=== PATIENT | male | born 1950 | race Caucasian/White ===

== ENCOUNTER 2021-03-24 16:55 | Inpatient (IN) | payer MEDICARE, MEDICAID, SELFPAY ==
--- NOTE | ~2021-03-24 | CT_ITS ---
EXAMINATION: CT ABDOMEN AND PELVIS WITHOUT CONTRAST CLINICAL INFORMATION: Acute renal failure, rule out obstruction COMPARISON: None TECHNIQUE: Multidetector volumetric imaging was performed from the superior aspect of the liver through the pubic symphysis. Sagittal and coronal reformatted images were obtained on the technologist's workstation. This CT examination was performed using dose optimization techniques as appropriate, variously including the following: *Automated exposure control *Adjustment of mA and/or kV according to patient size (this includes techniques or standardized protocols for targeted exams where dose is matched to indication/reason for exam; i.e. extremities or head) *Use of iterative reconstruction technique DLP: 612 mGy-cm FINDINGS: LUNG BASES: The visualized lung bases are unremarkable. ABDOMINAL AND PELVIC WALL: Small fat-containing umbilical hernia. LIVER AND BILIARY TREE: Unremarkable GALLBLADDER: Unremarkable PANCREAS: Unremarkable SPLEEN: Unremarkable ADRENAL GLANDS: A 1.9 cm Right adrenal lesion and a 2.0 cm left adrenal lesion, with intrinsically low density (less than 10 Hounsfield units on noncontrast phase) compatible with adrenal adenomas. KIDNEYS AND URETERS: Moderate bilateral hydroureteronephrosis with the ureters dilated to the level of the ureterovesicular junctions. There is a 4 mm stone in the distal right ureter however this does not appear to be obstructing as the ureter is dilated to a significantly larger diameter than the stone, measuring 1.4 cm. UPPER GASTROINTESTINAL TRACT: The stomach and duodenum are unremarkable. VASCULAR: Unremarkable. LYMPH NODES: No lymphadenopathy. BLADDER: Urinary bladder is significantly distended. PELVIC VISCERA: Prostate is enlarged measuring 6.2 cm in diameter. TURP defect is noted within the prostate. Grijalva catheter balloon is inflated within the prostatic urethra. LOWER GASTROINTESTINAL TRACT: Colonic diverticulosis without evidence of diverticulitis. Normal appendix. OSSEOUS STRUCTURES: Unremarkable CT/CT abdomen pelvis wo con IMPRESSION: Moderate bilateral hydroureteronephrosis with the ureters dilated to the level of the ureterovesicular junctions. There is a 4 mm stone in the distal right ureter however this does not appear to be obstructing as the ureter is dilated to a significantly larger diameter than the stone, measuring 1.4 cm. Urinary bladder is significantly distended. The Grijalva catheter balloon is inflated within the prostatic urethra. Recommend repositioning. Bilateral adrenal adenomas measuring 1.9 cm on the right and 2.0 cm on the left, no imaging follow-up recommended.
--- NOTE | ~2021-03-24 | IR_ITS ---
PROCEDURE: IR INSERTION OF TUNNEL CATHETER CLINICAL INFORMATION: Renal failure COMPARISON: None TECHNIQUE: Procedure risks and benefits including bleeding, infection and pneumothorax were discussed with the patient and informed consent was obtained. All elements of maximal sterile barrier technique followed including use of cap, mask, sterile gown, sterile gloves, a sterile full body drape and hand hygiene. Also followed skin preparation with 2% chlorhexidine for cutaneous antisepsis, and sterile ultrasound preparation with sterile gel and probe cover when applicable. The right neck and upper chest were prepped and draped in the usual sterile fashion. The skin and soft tissues of the right lower neck were anesthetized with 1% lidocaine with epinephrine. A small incision was made. Using a 5 Lithuanian micropuncture system and ultrasound guidance, right internal jugular vein access was obtained. Over an 018 wire, a 5 Lithuanian dilator was positioned in the SVC. The skin and soft tissues of the right upper anterior chest were anesthetized with 1% lidocaine with epinephrine. A small incision was made. A subcutaneous tunnel from the chest to the neck incision was anesthetized with 1% lidocaine with epinephrine. Using a tunneler, a 14.5 Lithuanian 23 cm in length permacath was tunneled from the chest to the neck incision. An 035 guidewire was advanced through the 5 Lithuanian dilator into the IVC. Following serial dilatation and through a peel-away sheath, permacath was advanced centrally. The neck incision was closed using a 4 0 absorbable subcuticular suture. Chest incision was closed using a 4 0 absorbable mattress suture. Both ports had good blood return, flushed easily and were instilled with 1.9 mL heparin 1000 unit per mL solution. Patient received Versed 2 mg, fentanyl 100 mcg and Kefzol 2 g IV during the procedure. Total sedation time was 20 minutes. Real-time ultrasound guidance was used to document vein patency and for needle entry. DAP 35 cgy per centimeter squared. 1 saved fluoroscopic image. FINDINGS: There is a right internal jugular permacath with tip projecting over the cavoatrial junction. IR/IR cvc insert central tunnel IMPRESSION: Right internal jugular 14.5 Lithuanian 23 cm in length palindrome permacath placement.
--- NOTE | ~2021-03-24 | XR_ITS ---
EXAMINATION: XR chest 2V CLINICAL INFORMATION: Reason for Exam SOB COMPARISON: None TECHNIQUE: 2 views of the chest XR/XR chest 2V FINDINGS/IMPRESSION: Clear lungs. No pneumothorax. No pleural effusion. Normal cardiomediastinal silhouette.
--- NOTE | ~2021-03-24 | XR_ITS ---
EXAMINATION: XR CHEST CLINICAL INFORMATION: Postop. COMPARISON: Chest 03/24/2021 TECHNIQUE: Frontal view of the chest was obtained. FINDINGS: No significant abnormality is noted involving the heart, lungs, mediastinum, bony thorax or soft tissues. XR/XR chest 1V IMPRESSION: Unremarkable chest exam. No change from 03/24/2021.
[2021-03-24 17:08] VITALS: BP 130/77; PULSE 130; RESP 21; TEMP 36.5; O2SAT 99; BMI 20.9
--- NOTE | 2021-03-24 17:14 | ECG_ITS ---
Test Reason : CHEST PAIN Blood Pressure : / mmHG Vent. Rate : 120 BPM Atrial Rate : 120 BPM P-R Int : 160 ms QRS Dur : 088 ms QT Int : 314 ms P-R-T Axes : 081 050 094 degrees QTc Int : 443 ms Sinus tachycardia Left ventricular hypertrophy with repolarization abnormality ( Sokolow-Leon ) Abnormal ECG No previous ECGs available Referred By: Generic ED Physician Electronically Signed By:JAVIER DARDEN MD
[2021-03-24 17:43] LABS: MANUAL DIFF FLAG NO
[2021-03-24 17:44] LABS: Basophils Percent Auto 0.2 % (0-2); Eosinophils Absolute Auto 0.2 X10*3/uL (0.0-0.4); Eosinophils Percent Auto 1.6 % (0-4); Hematocrit 23.6 % (42.0-52.0); Imm Gran Abs Auto 0.04 X10*3/uL (0.00-0.03); Imm Gran Pct Auto 0.4 % (0.0-0.4); Lymphocytes Absolute Auto 1.2 X10*3/uL (1.2-4.9); Lymphocytes Percent Auto 12.7 % (20-40); Mean Corpuscular HGB Conc 33.9 g/dl (31.0-36.0); Mean Corpuscular Hemoglobin 30.1 pg (27.0-33.0); Mean Corpuscular Volume 88.7 fL (80.0-98.0); Mean Platelet Volume 10.5 fL (9.4-12.4); Monocytes Absolute Auto 0.6 X10*3/uL (0.1-1.2); Monocytes Percent Auto 5.8 % (2-11); Neutrophils Absolute Auto 7.6 x10*3/uL (2.0-8.3); Neutrophils Percent Auto 79.3 % (45-73); Platelet Count 232 X10*3/uL (160-400); Red Blood Count 2.66 X10*6/uL (4.60-5.80); White Blood Count 9.6 X10*3/uL (4.8-10.8)
[2021-03-24 18:03] LABS: COVID-19 Test Negative (Negative)
[2021-03-24 18:11] LABS: B Type Natriuretic Peptide 47 pg/mL (<100)
[2021-03-24 18:11] LABS: Troponin-I High Sensitivity 25.2 ng/L (<3.5-35.0)
[2021-03-24 18:27] LABS: Anion Gap 31 (12-20); Blood Urea Nitrogen 197 mg/dL (9-16); Calcium 7.8 mg/dL (8.4-10.2); Carbon Dioxide 8 mmol/L (22-29); Chloride 99 mmol/L (96-108); Creatinine Clr Calc Pharmacy 3.6; Estimated Glomerular Filt Rate 3; Glucose Random 139 mg/dL (60-115); Potassium 5.2 mmol/L (3.3-5.1); Sodium 133 mmol/L (135-145)
[2021-03-24 18:31] VITALS: BP 129/73; PULSE 115; RESP 16; TEMP 36.9; O2SAT 97
--- NOTE | 2021-03-24 19:09 | ED_ITS ---
HPI - General Adult General Chief complaint: General Medical Stated complaint: Sob ,chest pain Time Seen by Provider: 03/24/21 19:07 Source: patient Mode of arrival: ambulatory Limitations: no limitations History of Present Illness HPI narrative: 70-year-old male came into the emergency department for evaluation of nausea, vomiting, diarrhea and losing 60 lb over past 6 months, patient has no PCP to follow up with. Nausea, vomiting started 1st around September time patient was not able to keep any food or drink down. Patient was too weak he lost significant amount of weight. started to have uncontrollable diarrhea that the patient wear diaper at nighttime, patient claimed that he is still making urine he sees his diaper wet, patient declined any alcohol abuse history, mild exertional chest pain,no chest pain, no leg swelling, no fever, no chills, no recent travel, no recent use of antibiotics, no abdominal pain, no bloody diarrhea, no sick contact. Related Data Home Medications Medication Instructions Recorded Confirmed No Known Home Meds 03/24/21 03/24/21 Allergies Allergy/AdvReac Type Severity Reaction Status Date / Time No Known Allergies Allergy Verified 03/24/21 17:13 Review of Systems Review of Systems: All other systems are reviewed and are negative Constitutional: Reports as per HPI and Reports no additional constitutional complaints Eyes: Reports as per HPI and Reports no additional eye complaints Reports system reviewed and no additional complaints, except as documented Cardiovascular: Reports as per HPI and Reports no additional cardiovascular complaints Respiratory: Reports as per HPI and Reports no additional respiratory complaints Gastrointestinal: Reports as per HPI and Reports no additional gastrointestinal complaints Genitourinary: Reports no additional female genitourinary complaints Musculoskeletal: Reports no additional musculoskeletal complaints Skin/Breast: Reports system reviewed and no additional complaints, except as docu Psychiatric: Reports no additional psychiatric complaints Endocrine: Reports no additional endocrine complaints Hematologic/Lymphatic: Reports no additional hematologic/lymphatic complaints Allergic/Immunologic: Reports no additional allergic/immunologic complaints Reports system reviewed and no additional complaints, except as documented and Reports Abnormal speech [facility] Social History Social History Alcohol intake: former Patient Tobacco Use Status: Never used Tobacco Use of substances other than those prescribed or required for medical reasons: No Advance Directives: No Advance Directives Information Provided: No Physical Exam Vital Signs: Vital Signs: Last Vital Signs Temp 98.5 F 03/24/21 18:31 Pulse 107 H 03/24/21 19:14 Resp 18 03/24/21 19:14 BP 177/90 H 03/24/21 19:14 Pulse Ox 98 03/24/21 19:14 BMI result Body Mass Index 20.9 vital signs have been reviewed as appeared to be correct. Blood pressure normal. Heart rate Elevated. Respiration rate normal. Temperature normal. Oxygen saturation normal. Appearance: Alert. Oriented X3. No acute distress. Head: Normal external exam. Normocephalic. Atraumatic. No Dyer signs noted. No raccoon eyes noted Eyes: PERRLA. EOMI. Conjunctiva and sclera normal. Eyelids normal. ENT: TM's Normal. Pharynx normal. Uvula midline. Moist mucous membranes. No trismus noted. No drooling noted. No muffled voice noted. Neck: Normal inspection. Neck supple. FROM. No adenopathy. Thyroid Normal. No meningeal signs. No neck mass noted. CVS: Normal heart rate and rhythm. Heart sound normal. No murmurs noted. Pulses normal throughout. Respiratory: No respiratory distress. Painless inspiration. Breath sounds normal. No wheezes/rales/rhonchi noted. Chest nontender. No accessory muscle usage noted or decreased air movement noted. Abdomen: Soft and nontender. Bowel sounds normal in all 4 quadrants. No distention noted. No organomegaly noted. No visible injury noted. Back: No CVA tenderness. Full range of motion noted. Skin: Skin warm and dry. Normal skin color. Normal skin turgor. No rashes/lesions/lacerations noted. Extremities: No lower extremity edema. Extremities exhibit normal range of motion. Extremities nontender. Neuro: Oriented X 3. Cranial nerve exam: II-XII are grossly intact No motor deficit. No sensory deficit. Reflexes normal. Course Course Course Narrative: Assessment and plan. Acute renal failure secondary to post renal obstruction, case discussed with Dr. ruben Salamanca. from [facility]phrology [facility], and Dr. Javier Edgar from Neurology Service, recommended to give the patient 3 mm of bicarb in D5 temp new x 1, decompress the bladder with Grijalva catheter (initially catheter was not in place was replaced now it is draining over 1000 of clear urine. ) Medical Decision Making Lab Data Lab results reviewed: Yes I reviewed the patient's lab results. Result diagrams: 03/24/21 17:31 03/24/21 17:31 Labs: Lab Results 03/24/21 03/24/21 03/24/21 Range/Units 17:31 17:31 17:31 WBC 9.6 (4.8-10.8) X10*3/uL RBC 2.66 L (4.60-5.80) X10*6/uL Hgb 8.0 L (14.0-18.0) g/dl Hct 23.6 L (42.0-52.0) % MCV 88.7 (80.0-98.0) fL MCH 30.1 (27.0-33.0) pg MCHC 33.9 (31.0-36.0) g/dl RDW 12.0 (11.0-16.0) % Plt Count 232 (160-400) X10*3/uL MPV 10.5 (9.4-12.4) fL Immature Gran % (Auto) 0.4 (0.0-0.4) % Neut % (Auto) 79.3 H (45-73) % Lymph % (Auto) 12.7 L (20-40) % Hawkins % (Auto) 5.8 (2-11) % Eos % (Auto) 1.6 (0-4) % Baso % (Auto) 0.2 (0-2) % Lymph # (Auto) 1.2 (1.2-4.9) X10*3/uL Hawkins # (Auto) 0.6 (0.1-1.2) X10*3/uL Eos # (Auto) 0.2 (0.0-0.4) X10*3/uL Baso # (Auto) 0.0 (0.0-0.2) X10*3/uL Abs Immat Gran (auto) 0.04 H (0.00-0.03) X10*3/uL Absolute Neuts (auto) 7.6 (2.0-8.3) x10*3/uL Absolute Nucleated RBC 0.000 (0.0-0.012) X10*3/uL Nucleated RBC % (auto) 0.0 (0.0-0.2) /100WBC Sodium 133 L (135-145) mmol/L Potassium 5.2 H (3.3-5.1) mmol/L Chloride 99 (96-108) mmol/L Carbon Dioxide 8 L* (22-29) mmol/L Anion Gap 31 H (12-20) BUN 197 H (9-16) mg/dL Creatinine 17.66 H* (0.5-1.4) mg/dL Estim Creat Clear Calc 3.6 Estimated GFR 3 Random Glucose 139 H (60-115) mg/dL Calcium 7.8 L (8.4-10.2) mg/dL Troponin I High Sens (<3.5-35.0) ng/L B-Natriuretic Peptide 47 (<100) pg/mL Urine Color Urine Appearance Urine pH (5.0-8.0) Ur Specific [place] (1.005-1.025) Urine Protein (NEG-TRACE) MG/DL Urine Glucose (UA) (NEG) MG/DL Urine Ketones (NEG) MG/DL Urine Blood (NEG) Urine Nitrite (NEG) Ur Leukocyte Esterase (NEG) Urine RBC (0) /HPF Urine WBC (0-4) /HPF Ur Squamous Epith Cells /LPF Urine Bacteria /LPF Stool Occult Blood (NEGATIVE) COVID-19 (ECHO) (Negative) COVID-19 Clin Com 03/24/21 03/24/21 03/24/21 Range/Units 17:32 17:32 19:36 WBC (4.8-10.8) X10*3/uL RBC (4.60-5.80) X10*6/uL Hgb (14.0-18.0) g/dl Hct (42.0-52.0) % MCV (80.0-98.0) fL MCH (27.0-33.0) pg MCHC (31.0-36.0) g/dl RDW (11.0-16.0) % Plt Count (160-400) X10*3/uL MPV (9.4-12.4) fL Immature Gran % (Auto) (0.0-0.4) % Neut % (Auto) (45-73) % Lymph % (Auto) (20-40) % [place] % (Auto) (2-11) % Eos % (Auto) (0-4) % Baso % (Auto) (0-2) % Lymph # (Auto) (1.2-4.9) X10*3/uL [place] # (Auto) (0.1-1.2) X10*3/uL Eos # (Auto) (0.0-0.4) X10*3/uL Baso # (Auto) (0.0-0.2) X10*3/uL Abs Immat Gran (auto) (0.00-0.03) X10*3/uL Absolute Neuts (auto) (2.0-8.3) x10*3/uL Absolute Nucleated RBC (0.0-0.012) X10*3/uL Nucleated RBC % (auto) (0.0-0.2) /100WBC Sodium (135-145) mmol/L Potassium (3.3-5.1) mmol/L Chloride (96-108) mmol/L Carbon Dioxide (22-29) mmol/L Anion Gap (12-20) BUN (9-16) mg/dL Creatinine (0.5-1.4) mg/dL Estim Creat Clear Calc Estimated GFR Random Glucose (60-115) mg/dL Calcium (8.4-10.2) mg/dL Troponin I High Sens 25.2 (<3.5-35.0) ng/L B-Natriuretic Peptide (<100) pg/mL Urine Color Urine Appearance Urine pH (5.0-8.0) Ur Specific [place] (1.005-1.025) Urine Protein (NEG-TRACE) MG/DL Urine Glucose (UA) (NEG) MG/DL Urine Ketones (NEG) MG/DL Urine Blood (NEG) Urine Nitrite (NEG) Ur Leukocyte Esterase (NEG) Urine RBC (0) /HPF Urine WBC (0-4) /HPF Ur Squamous Epith Cells /LPF Urine Bacteria /LPF Stool Occult Blood NEGATIVE (NEGATIVE) COVID-19 (ECHO) Negative (Negative) COVID-19 Clin Com See Note 03/24/21 Range/Units 19:36 WBC (4.8-10.8) X10*3/uL RBC (4.60-5.80) X10*6/uL Hgb (14.0-18.0) g/dl Hct (42.0-52.0) % MCV (80.0-98.0) fL MCH (27.0-33.0) pg MCHC (31.0-36.0) g/dl RDW (11.0-16.0) % Plt Count (160-400) X10*3/uL MPV (9.4-12.4) fL Immature Gran % (Auto) (0.0-0.4) % Neut % (Auto) (45-73) % Lymph % (Auto) (20-40) % Hawkins % (Auto) (2-11) % Eos % (Auto) (0-4) % Baso % (Auto) (0-2) % Lymph # (Auto) (1.2-4.9) X10*3/uL Hawkins # (Auto) (0.1-1.2) X10*3/uL Eos # (Auto) (0.0-0.4) X10*3/uL Baso # (Auto) (0.0-0.2) X10*3/uL Abs Immat Gran (auto) (0.00-0.03) X10*3/uL Absolute Neuts (auto) (2.0-8.3) x10*3/uL Absolute Nucleated RBC (0.0-0.012) X10*3/uL Nucleated RBC % (auto) (0.0-0.2) /100WBC Sodium (135-145) mmol/L Potassium (3.3-5.1) mmol/L Chloride (96-108) mmol/L Carbon Dioxide (22-29) mmol/L Anion Gap (12-20) BUN (9-16) mg/dL Creatinine (0.5-1.4) mg/dL Estim Creat Clear Calc Estimated GFR Random Glucose (60-115) mg/dL Calcium (8.4-10.2) mg/dL Troponin I High Sens (<3.5-35.0) ng/L B-Natriuretic Peptide (<100) pg/mL Urine Color RED Urine Appearance HAZY Urine pH 6.0 (5.0-8.0) Ur Specific [place] 1.015 (1.005-1.025) Urine Protein 2+ H (NEG-TRACE) MG/DL Urine Glucose (UA) NEG (NEG) MG/DL Urine Ketones NEG (NEG) MG/DL Urine Blood 3+ H (NEG) Urine Nitrite NEG (NEG) Ur Leukocyte Esterase 3+ H (NEG) Urine RBC TNTC H (0) /HPF Urine WBC 30-49 H (0-4) /HPF Ur Squamous Epith Cells NONE /LPF Urine Bacteria 2+ /LPF Stool Occult Blood (NEGATIVE) COVID-19 (ECHO) (Negative) COVID-19 Clin Com Imaging Data CT scan - abdomen: Attestation: I personally reviewed and interpreted this imaging study as follows: Radiologist's impression: Moderate bilateral hydroureteronephrosis with the ureters dilated to the level of the ureterovesicular junctions. There is a 4 mm stone in the distal right ureter however this does not appear to be obstructing as the ureter is dilated to a significantly larger diameter than the stone, measuring 1.4 cm. ? Urinary bladder is significantly distended. The Grijalva catheter balloon is inflated within the prostatic urethra. Recommend repositioning. ? Bilateral adrenal adenomas measuring 1.9 cm on the right and 2.0 cm on the left, no imaging follow-up recommended. ? Chest x-ray: Attestation: I personally reviewed and interpreted this imaging study as follows: Radiologist's impression: No pneumothorax, no pleural effusion, normal cardio mediastinum silhouette ECG Data Attestation: I personally reviewed and interpreted this ECG as follows: Interpretation: sinus tachycardia at 120 beats per minutes with LVH, normal axis deviation, normal intervals. Discharge Plan Discharge Clinical Impression: Acute renal failure, Calculi, ureter Patient Disposition: Admitted as Observation Prescriptions: No Action No Known Home Meds RF: 0
[2021-03-24 19:14] VITALS: BP 177/90; PULSE 107; RESP 18; O2SAT 98
[2021-03-24] MEDS: 0.9 % Sodium Chloride 1,000 ML 999 ML IVCONT (19:14)
[2021-03-24 19:42] LABS: Appearance Urine HAZY; Color Urine RED; Glucose Urine UA NEG (NEG); Leukocyte Esterase Urine 3+ (NEG); Nitrite Urine NEG (NEG); OBS Int Ctl Valid YES; OBS1 NEGATIVE (NEGATIVE); Specific Gravity - Urine 1.015 (1.005-1.025); UACC Culture Trigger YES; Urine Blood 3+ (NEG); Urine Ketones NEG (NEG); Urine Protein 2+ MG/DL (NEG-TRACE)
[2021-03-24 19:50] LABS: RBC Urine TNTC /HPF (0); WBC Urine 30-49 /HPF (0-4)
[2021-03-24 19:51] LABS: Bacteria Urine 2+ /LPF
[2021-03-24 22:00] VITALS: BP 148/94; PULSE 89; RESP 16; O2SAT 98
--- NOTE | 2021-03-24 22:39 | PC.NURSE ---
ATTEMPT TO ADVANCE LUTZ PER CT SCAN. PATIENT OUTPUT FROM LUTZ WAS 400MLS OF LIGHT NAV URINE. PATIENT NOT TOLERATING EVEN CLEAING OF THE AREA WELL. VERY JUMPY. UNABLE TO HOLD STILL, CLENCHING, BEARING DOWN. THIS RN ATTEMPTING REINSERTION, NASIM RN ATTEMPTING COUDE WITH NO SUCCESS, TARAH RN ATTEMPTING A 12FR LUTZ, ABLE TO ADVANCE IT AND URINE FLOWING AT THIS TIME. PROVIDER AWARE.
[2021-03-24] MEDS: Sodium Bicarbonate 8.4% 150 MEQ in Dextrose 5 % 850 ML 80 MEQ IV (22:51)
--- NOTE | 2021-03-24 23:10 | PM.IMHP ---
History of Present Illness Date of Service: 03/24/21 Chief Complaint: Weakness, n/v, This is a 71-year-old male who reports no past significant medical history as he has not seen a physician in many years because im a healthy man presents to the hospital with complaints nausea vomiting since August as well as progressive and significant weight loss, loss of appetite, and recently diarrhea. Patient reports that he started having 5/7 days nausea and vomiting starting in August that progressed to loss of appetite, he tried to stay hydrated by drinking Ensure but he was in even tolerating bad, he was throwing up everything he drank and or 8. He noticed that he started losing weight, until finally he realize he had lost 60 lb since August. He has had loss of bladder control for over a year now, but has not noticed any him itchy urea, no urinary urgency, dysuria, or frequency given his incontinence. He denies any abdominal pain, and he reports recent diarrhea with no black Meghan stools. He has no hemoptysis, hematemesis but has been experiencing epistaxis recently everytime he blows his nose. He has noticed decreased urine output in his diapers for the past few weeks. He otherwise denies having any headache, change in vision, no chest pain, no lower extremity edema. No numbness tingling or weakness. Arrival his vitals were significant for temp of 97.7?, heart rate of 130, respiratory rate of 21, satting 99% on room air Labs are significant for WBC count 9.6, hemoglobin of 8.0 with no previous for comparison, sodium of 133, potassium 5.2, bicarb of 8, BUN 197, creatinine of 17.66, calcium 7.8, UA that is positive for leukocyte Estrace, WBC, and RBC, Abdominal CT shows moderate bilateral hydroureteronephrosis with uterus dilated at the level of the ureterovascular junctions. There is a 4 mm stone in the distal right ureter however this does not appear to be obstructing as the uterus dilated to a significantly larger dimer that this stone measuring 1.4 cm. Urinary bladder is significantly distended. Bilateral adrenal adenomas measuring 1.9 cm on the right and 2.0 cm on the left. When inserting the Grijalva catheter in the ED there was difficulty advancing it due to resistance, most likely due to enlarged prostate. Nephrology as well as Urology were consulted, patient started on bicarb drip and will be admitted for further management. Review of Systems Review of Systems: Yes all other systems are reviewed and are negative [facility] Medical History No pertinent past medical history Family History (Updated 03/25/21 @ 06:28 by Antonio Chew MD) Other No pertinent family history in first degree relatives Surgical History H/O hernia repair Social History Alcohol intake: former Patient Tobacco Use Status: Never used Tobacco Use of substances other than those prescribed or required for medical reasons: No Advance Directives: No Advance Directives Information Provided: No Meds Allergies Allergy/AdvReac Type Severity Reaction Status Date / Time No Known Allergies Allergy Verified 03/24/21 17:13 Active Medications: Current Medications Sodium Bicarbonate 150 meq/ (Dextrose) 1,000 mls @ 80 mls/hr IV .[id number] DAWN Stop: 03/25/21 10:29 Last Admin: 03/24/21 22:51 Dose: 80 mls/hr Documented by: Home Medications Medication Instructions Recorded Confirmed Last Taken Type No Known Home Meds 03/24/21 03/24/21 Unknown History Physical Exam Vital Signs and Narrative: Vital Signs: Last Vital Signs Temp 98.5 F 03/24/21 18:31 Pulse 107 H 03/24/21 19:14 Resp 18 03/24/21 19:14 BP 177/90 H 03/24/21 19:14 Pulse Ox 98 03/24/21 19:14 BMI result Body Mass Index 20.9 Results Labs CBC and Chem 7: 03/24/21 17:31 03/24/21 17:31 Labs: Laboratory Results - last 24 hr 03/24/21 03/24/21 03/24/21 17:31 17:31 17:31 MCV 88.7 MCH 30.1 MCHC 33.9 RDW 12.0 Plt Count 232 MPV 10.5 Immature Gran % (Auto) 0.4 Neut % (Auto) 79.3 H Lymph % (Auto) 12.7 L [place] % (Auto) 5.8 Eos % (Auto) 1.6 Baso % (Auto) 0.2 Lymph # (Auto) 1.2 [place] # (Auto) 0.6 Eos # (Auto) 0.2 Baso # (Auto) 0.0 Abs Immat Gran (auto) 0.04 H Absolute Neuts (auto) 7.6 Absolute Nucleated RBC 0.000 Nucleated RBC % (auto) 0.0 Anion Gap 31 H Estim Creat Clear Calc 3.6 Estimated GFR 3 Random Glucose 139 H Calcium 7.8 L Troponin I High Sens B-Natriuretic Peptide 47 Urine Color Urine Appearance Urine pH Ur Specific [place] Urine Protein Urine Glucose (UA) Urine Ketones Urine Blood Urine Nitrite Ur Leukocyte Esterase Urine RBC Urine WBC Ur Squamous Epith Cells Urine Bacteria Stool Occult Blood COVID-19 (ECHO) COVID-19 Clin Com 03/24/21 03/24/21 03/24/21 17:32 17:32 19:36 MCV MCH MCHC RDW Plt Count MPV Immature Gran % (Auto) Neut % (Auto) Lymph % (Auto) [place] % (Auto) Eos % (Auto) Baso % (Auto) Lymph # (Auto) [place] # (Auto) Eos # (Auto) Baso # (Auto) Abs Immat Gran (auto) Absolute Neuts (auto) Absolute Nucleated RBC Nucleated RBC % (auto) Anion Gap Estim Creat Clear Calc Estimated GFR Random Glucose Calcium Troponin I High Sens 25.2 B-Natriuretic Peptide Urine Color Urine Appearance Urine pH Ur Specific [place] Urine Protein Urine Glucose (UA) Urine Ketones Urine Blood Urine Nitrite Ur Leukocyte Esterase Urine RBC Urine WBC Ur Squamous Epith Cells Urine Bacteria Stool Occult Blood NEGATIVE COVID-19 (ECHO) Negative COVID-19 Clin Com See Note 03/24/21 19:36 MCV MCH MCHC RDW Plt Count MPV Immature Gran % (Auto) Neut % (Auto) Lymph % (Auto) [place] % (Auto) Eos % (Auto) Baso % (Auto) Lymph # (Auto) [place] # (Auto) Eos # (Auto) Baso # (Auto) Abs Immat Gran (auto) Absolute Neuts (auto) Absolute Nucleated RBC Nucleated RBC % (auto) Anion Gap Estim Creat Clear Calc Estimated GFR Random Glucose Calcium Troponin I High Sens B-Natriuretic Peptide Urine Color RED Urine Appearance HAZY Urine pH 6.0 Ur Specific [place] 1.015 Urine Protein 2+ H Urine Glucose (UA) NEG Urine Ketones NEG Urine Blood 3+ H Urine Nitrite NEG Ur Leukocyte Esterase 3+ H Urine RBC TNTC H Urine WBC 30-49 H Ur Squamous Epith Cells NONE Urine Bacteria 2+ Stool Occult Blood COVID-19 (ECHO) COVID-19 Clin Com Imaging Radiologist's Impressions: Impressions Chest X-Ray 03/24/21 17:49 FINDINGS/IMPRESSION: Clear lungs. No pneumothorax. No pleural effusion. Normal cardiomediastinal silhouette. Abdomen/Pelvis CT 03/24/21 20:27 IMPRESSION: Moderate bilateral hydroureteronephrosis with the ureters dilated to the level of the ureterovesicular junctions. There is a 4 mm stone in the distal right ureter however this does not appear to be obstructing as the ureter is dilated to a significantly larger diameter than the stone, measuring 1.4 cm. Urinary bladder is significantly distended. The Grijalva catheter balloon is inflated within the prostatic urethra. Recommend repositioning. Bilateral adrenal adenomas measuring 1.9 cm on the right and 2.0 cm on the left, no imaging follow-up recommended. Assessment and Plan (1) Acute renal failure: Status: Acute (2) Metabolic acidosis: Status: Acute (3) UTI (urinary tract infection): Status: Acute (4) Weight loss: Status: Acute (5) Intractable nausea and vomiting: Status: Acute 70 yo M who reports no past medical history presents to the hospital with intractable nausea vomiting, weight loss, found to have severe kidney failure # DAVID - most likely postobstructive secondary to either enlarged prostate or or mass although no bladder mass seen on CT abdomen pelvis - urology as well as Nephrology were consulted, - patient started on IV fluids - plan for urology elevation in a.m. - Nephrology does not feel the patient currently needs any stat dialysis at this is most likely postobstructive - follow BMP # metabolic acidosis - most likely driven by uremia - BUN is 197 with a bicarb of 8 - patient started on bicarb drip per Nephrology recommendation - will follow BMP # weight loss - most likely secondary to poor p.o. intake as well as nausea vomiting - will start him with regular diet as well as ensure supplement # intractable nausea vomiting - most likely secondary to uremia as well as DAVID - will start him on Zofran p.r.n. - supportive measures, IV fluid DVT prophylaxis: Heparin subQ Quality Stroke Does the patient have a stroke diagnosis?: No VTE Prior VTE?: No VTE Risk Level:: Medical - moderate - high VTE Device Contraindication: Treatment Not Indicated VTE Drug Contraindication: N/A - Med Ordered
[2021-03-24] MEDS: Tamsulosin HCL 0.4 MG CAPSULE PO (23:29)
[2021-03-24] MEDS: LORazepam 2 MG/ML VIAL 1 MG IVPUSH (23:29)
[2021-03-24 23:50] VITALS: BP 122/82; PULSE 70; RESP 16; TEMP 36.7; O2SAT 95
[2021-03-25] VITALS (32 sets, daily range): BP systolic 81–146; BP diastolic 48–85; PULSE 81–116; RESP 12–28; TEMP 36.3–36.6; O2SAT 96–100; BMI 26.6
[2021-03-25] MEDS: Enoxaparin Sodium 40 MG/0.4 ML SYRINGE SUBCUT (02:34)
[2021-03-25] MEDS: cefTRIAXone sodium 1 GM in 0.9 % Sodium Chloride 50 ML IV (02:34)
[2021-03-25] MEDS: Morphine Sulfate 4 MG/ML CARTRIDGE IVPUSH ×2 (05:21→10:04)
[2021-03-25 06:58] LABS: MANUAL DIFF FLAG NO
[2021-03-25 07:07] LABS: Basophils Percent Auto 0.2 % (0-2); Eosinophils Absolute Auto 0.1 X10*3/uL (0.0-0.4); Eosinophils Percent Auto 0.4 % (0-4); Hematocrit 22.8 % (42.0-52.0); Hemoglobin 7.8 g/dl (14.0-18.0); Imm Gran Abs Auto 0.05 X10*3/uL (0.00-0.03); Imm Gran Pct Auto 0.4 % (0.0-0.4); Lymphocytes Absolute Auto 1.1 X10*3/uL (1.2-4.9); Lymphocytes Percent Auto 9.4 % (20-40); Mean Corpuscular HGB Conc 34.2 g/dl (31.0-36.0); Mean Corpuscular Hemoglobin 30.7 pg (27.0-33.0); Mean Corpuscular Volume 89.8 fL (80.0-98.0); Mean Platelet Volume 10.3 fL (9.4-12.4); Monocytes Absolute Auto 0.6 X10*3/uL (0.1-1.2); Monocytes Percent Auto 5.7 % (2-11); Neutrophils Absolute Auto 9.4 x10*3/uL (2.0-8.3); Neutrophils Percent Auto 83.9 % (45-73); Platelet Count 181 X10*3/uL (160-400); Red Blood Count 2.54 X10*6/uL (4.60-5.80); Red Cell Distribution Width 12.1 % (11.0-16.0); White Blood Count 11.2 X10*3/uL (4.8-10.8)
[2021-03-25 07:17] LABS: Lactic Acid 0.9 mmol/L (0.5-2.0)
[2021-03-25] MEDS: Heparin Sodium,Porcine 5,000 UNIT/ML VIAL 5000 UNIT SUBCUT ×2 (07:56→22:56)
[2021-03-25 07:59] LABS: Anion Gap 28 (12-20); Blood Urea Nitrogen 196 mg/dL (9-16); Calcium 7.3 mg/dL (8.4-10.2); Carbon Dioxide 9 mmol/L (22-29); Chloride 100 mmol/L (96-108); Creatinine Clr Calc Pharmacy 3.7; Estimated Glomerular Filt Rate 3; Glucose Random 153 mg/dL (60-115); Iron 173 mcg/dL (45-160); Sodium 132 mmol/L (135-145); Total Iron Binding Capacity < 190 mcg/dL (228-428); Unsaturated Iron Binding < 17 ug/dL
--- NOTE | 2021-03-25 08:18 | PC.NURSE ---
Pt sitting on bed, drinking coffee at this time, pain 4/10 to pelvic region and flanks, states he is trying to get used to the feeling of the resendez. Pt requesting next dose of morphine at 0930. Pt is A&Ox3, LCA, +PERRLA, +pulses, ST on monitor. Per Dr. Arredondo plan for OR today, Dr Arredondo also aware of BiCarb of 9 and Creatinine of 17.29, no changes to BiCarb drip at this time. Plan for OR today. Call hernandez within reach, will continue to monitor.
--- NOTE | 2021-03-25 08:23 | PM.UROCN ---
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 Recommendation is for Grijalva catheter followed by procedure to remove stone and bilateral stenting Review of Systems Constitutional: Constitutional: Reports as per HPI and Reports no additional constitutional complaints Cardiovascular: Cardiovascular: Reports as per HPI and Reports no additional cardiovascular complaints Respiratory: Respiratory: Reports as per HPI and Reports no additional respiratory complaints Gastrointestinal: Gastrointestinal: Reports as per HPI and Reports no additional gastrointestinal complaints Genitourinary: Genitourinary: Reports as per HPI Musculoskeletal: Musculoskeletal: Reports no additional musculoskeletal complaints and Reports as per HPI Neurologic: Reports system reviewed and no additional complaints, except as documented and Reports as per HPI PMFSH Past Medical History Medical History No pertinent past medical history Family History Family History (Updated 03/25/21 @ 06:28 by Antonio Chew MD) Other No pertinent family history in first degree relatives Surgical History Surgical History H/O hernia repair Social History Social History Alcohol intake: former Patient Tobacco Use Status: Never used Tobacco Use of substances other than those prescribed or required for medical reasons: No Advance Directives: No Advance Directives Information Provided: No Meds Allergies Allergy/AdvReac Type Severity Reaction Status Date / Time No Known Allergies Allergy Verified 03/24/21 17:13 Active Medications: Current Medications Acetaminophen (Acetaminophen 325 Mg Tablet) 650 mg PO Q6H PRN PRN Reason: Pain, Mild (Pain Scale 1-3) Docusate Sodium (Docusate Sodium 100 Mg Capsule) 100 mg PO DAILY PRN PRN Reason: Constipation Heparin Sodium (Porcine) (Heparin Sodium,Porcine 5,000 Unit/Ml Vial) 5,000 unit SUBCUT Q12H DAWN Last Admin: 03/25/21 07:56 Dose: 5,000 unit Documented by: Sodium Bicarbonate 150 meq/ (Dextrose) 1,000 mls @ 80 mls/hr IV .[id number] [facility] Stop: 03/25/21 10:29 Last Admin: 03/24/21 22:51 Dose: 80 mls/hr Documented by: Ceftriaxone Sodium 1 gm/ (Sodium Chloride) 50 mls @ 100 mls/hr IV Q24H [facility] Last Infusion: 03/25/21 08:13 Dose: Infused Documented by: Morphine Sulfate (Morphine Sulfate 4 Mg/Ml Cartridge) 4 mg IVPUSH Q4H PRN; Protocol PRN Reason: Pain, Severe (Pain Scale 7-10) Last Admin: 03/25/21 05:21 Dose: 4 mg Documented by: Ondansetron HCl (Ondansetron Hcl 4 Mg/2 Ml Vial) 4 mg IVPUSH Q8H PRN PRN Reason: Nausea and Vomiting Sodium Chloride (0.9 % Sodium Chloride Flush 3 Ml Syringe) 3 ml IVFLUSH QSHIFT [facility] Last Admin: 03/25/21 08:17 Dose: Not Given Documented by: Tamsulosin HCl (Tamsulosin Hcl 0.4 Mg Capsule) 0.4 mg PO BEDTIME [facility] Last Admin: 03/24/21 23:29 Dose: 0.4 mg Documented by: Home Medications Medication Instructions Recorded Confirmed Last Taken Type No Known Home Meds 03/24/21 03/24/21 Unknown History Physical Exam Vital Signs: Vital Signs: Last Vital Signs Temp 98.1 F 03/24/21 23:50 Pulse 110 H 03/25/21 08:17 Resp 20 03/25/21 08:17 BP 109/67 03/25/21 08:17 Pulse Ox 100 03/25/21 08:17 BMI result Body Mass Index 20.9 Const: General: cooperative, healthy appearing, comfortable and no acute distress Orientation/consciousness: patient oriented x3 HENMT: Face and sinus: Yes normal facial exam Mouth: moist mucous membranes Neck: Neck: Yes normal visual inspection, Yes full ROM and Yes trachea midline Chest: Chest palpation & inspection: normal inspection of the chest Resp: Effort & Inspection: normal respiratory effort, able to speak in complete sentences and no respiratory distress GI: Inspection: Yes normal to inspection Back/Spine/Pelvis: Cervical Spine: normal cervical lordosis Thoracic/Lumbar Spine: thoracic and lumbar spine normal to inspection Skin: General skin exam: no rashes or lesions noted Neuro: General: patient oriented x3, tone normal and moves all extremities Extrem: General: Yes normal to inspection and Yes capillary refill normal Results Labs Result diagrams: 03/25/21 06:53 03/25/21 06:53 Labs: Abnormal lab results 03/24/21 03/24/21 03/24/21 Range/Units 17:31 17:31 19:36 WBC (4.8-10.8) X10*3/uL RBC 2.66 L (4.60-5.80) X10*6/uL Hgb 8.0 L (14.0-18.0) g/dl Hct 23.6 L (42.0-52.0) % Neut % (Auto) 79.3 H (45-73) % Lymph % (Auto) 12.7 L (20-40) % Lymph # (Auto) (1.2-4.9) X10*3/uL Abs Immat Gran (auto) 0.04 H (0.00-0.03) X10*3/uL Absolute Neuts (auto) (2.0-8.3) x10*3/uL Sodium 133 L (135-145) mmol/L Potassium 5.2 H (3.3-5.1) mmol/L Carbon Dioxide 8 L* (22-29) mmol/L Anion Gap 31 H (12-20) BUN 197 H (9-16) mg/dL Creatinine 17.66 H* (0.5-1.4) mg/dL Random Glucose 139 H (60-115) mg/dL Calcium 7.8 L (8.4-10.2) mg/dL Iron (45-160) mcg/dL TIBC (228-428) mcg/dL Urine Protein 2+ H (NEG-TRACE) MG/DL Urine Blood 3+ H (NEG) Ur Leukocyte Esterase 3+ H (NEG) Urine RBC TNTC H (0) /HPF Urine WBC 30-49 H (0-4) /HPF 03/25/21 03/25/21 Range/Units 06:53 06:53 WBC 11.2 H (4.8-10.8) X10*3/uL RBC 2.54 L (4.60-5.80) X10*6/uL Hgb 7.8 L (14.0-18.0) g/dl Hct 22.8 L (42.0-52.0) % Neut % (Auto) 83.9 H (45-73) % Lymph % (Auto) 9.4 L (20-40) % Lymph # (Auto) 1.1 L (1.2-4.9) X10*3/uL Abs Immat Gran (auto) 0.05 H (0.00-0.03) X10*3/uL Absolute Neuts (auto) 9.4 H (2.0-8.3) x10*3/uL Sodium 132 L (135-145) mmol/L Potassium (3.3-5.1) mmol/L Carbon Dioxide 9 L* (22-29) mmol/L Anion Gap 28 H (12-20) BUN 196 H (9-16) mg/dL Creatinine 17.29 H* (0.5-1.4) mg/dL Random Glucose 153 H (60-115) mg/dL Calcium 7.3 L D (8.4-10.2) mg/dL Iron 173 H (45-160) mcg/dL TIBC < 190 L (228-428) mcg/dL Urine Protein (NEG-TRACE) MG/DL Urine Blood (NEG) Ur Leukocyte Esterase (NEG) Urine RBC (0) /HPF Urine WBC (0-4) /HPF Short CBC 03/24/21 03/25/21 Range/Units 17:31 06:53 WBC 9.6 11.2 H (4.8-10.8) X10*3/uL Hgb 8.0 L 7.8 L (14.0-18.0) g/dl Hct 23.6 L 22.8 L (42.0-52.0) % Plt Count 232 181 (160-400) X10*3/uL BMP 03/24/21 03/25/21 17:31 06:53 Sodium 133 L 132 L Potassium 5.2 H 5.0 Chloride 99 100 Carbon Dioxide 8 L* 9 L* BUN 197 H 196 H Creatinine 17.66 H* 17.29 H* Calcium 7.8 L 7.3 L D Urine 03/24/21 Range/Units 19:36 Urine Color RED Urine Appearance HAZY Urine pH 6.0 (5.0-8.0) Ur Specific [place] 1.015 (1.005-1.025) Urine Protein 2+ H (NEG-TRACE) MG/DL Urine Glucose (UA) NEG (NEG) MG/DL All other labs normal. Assessment and Plan (1) Calculi, ureter: Status: Acute (2) Acute renal failure: Status: Acute Grijalva catheter placement Ureteroscopy We discussed the nature of the decision and reasonable alternatives for performing the above surgery. Interventions include chemical dissolution, ESWL, ureteroscopy with laser lithotripsy and stent placement, PCNL. Options such as medical therapy were discussed. The relative uncertainties and benefits related to each alternate procedure were adequately discussed. General surgical risks including, but not limited to, pain, bleeding, infection, myocardial infarction, pulmonary embolus, deep vein thrombosis and cerebrovascular accident which may result in further hospitalization were discussed. Full disclosure of the procedure as well as all major risks, benefits and complications were discussed including but not limited to damage to the urethra, bladder and kidney infection, damage to the ureter, stent migration or malposition, scarring to the renal pelvis, remnant stone fragments, subsequent stone passage with need for secondary procedures. The overall secondary procedure rate is approximately 10-15%. The success rate of the procedure was discussed. Success of the procedure in the short-term does not necessarily guarantee that long-term success will be maintained. Suitable follow up will need to be maintained. The patient showed understanding of discussion and wishes to proceed with - cystoscopy, retrograde, ureteroscopy, possible lithotripsy/stone basketing and stent on the right side Will include left retrograde and left stent placement Procedures Date of Service Date of Service: 03/25/21
--- NOTE | 2021-03-25 08:27 | P.PNIM_ITS ---
Subjective Subjective Date of Service: 03/25/21 Interval History: david , Severe metabolic acidosis, hydronephrosis, anemia Review of Systems patient says has background on nausea vomiting from couple of months still has nausea background history of epistaxis also Physical Exam Vital Signs: Vital Signs: Last Vital Signs Temp 98.1 F 03/24/21 23:50 Pulse 110 H 03/25/21 08:17 Resp 20 03/25/21 08:17 BP 109/67 03/25/21 08:17 Pulse Ox 100 03/25/21 08:17 BMI result Body Mass Index 20.9 physical exam: Appearance: Alert.? Oriented X3 but needs to directed to conversation. cvs: rrr, [id number] , no murmur res: clear to auscultation ,no rhonchii or wheezing abd: no rebound or guarding ,nt, bs present. ext pulses present , no cyanosis. neuro: axo3 , nonfocal. Objective Data Active Medications Acetaminophen (Acetaminophen 325 Mg Tablet) 650 mg PO Q6H PRN PRN Reason: Pain, Mild (Pain Scale 1-3) Docusate Sodium (Docusate Sodium 100 Mg Capsule) 100 mg PO DAILY PRN PRN Reason: Constipation Heparin Sodium (Porcine) (Heparin Sodium,Porcine 5,000 Unit/Ml Vial) 5,000 unit SUBCUT Q12H [facility] Last Admin: 03/25/21 07:56 Dose: 5,000 unit Documented by: DURAN Sodium Bicarbonate 150 meq/ (Dextrose) 1,000 mls @ 80 mls/hr IV .[id number] [facility] Stop: 03/25/21 10:29 Last Admin: 03/24/21 22:51 Dose: 80 mls/hr Documented by: JAY Ceftriaxone Sodium 1 gm/ (Sodium Chloride) 50 mls @ 100 mls/hr IV Q24H [facility] Last Infusion: 03/25/21 08:13 Dose: 0 mls/hr Documented by: DURAN Levofloxacin (Levaquin) 500 mg in 100 mls @ 100 mls/hr IV PREOP ONE Stop: 03/25/21 09:20 Morphine Sulfate (Morphine Sulfate 4 Mg/Ml Cartridge) 4 mg IVPUSH Q4H PRN; Protocol PRN Reason: Pain, Severe (Pain Scale 7-10) Last Admin: 03/25/21 05:21 Dose: 4 mg Documented by: NANI Ondansetron HCl (Ondansetron Hcl 4 Mg/2 Ml Vial) 4 mg IVPUSH Q8H PRN PRN Reason: Nausea and Vomiting Sodium Chloride (0.9 % Sodium Chloride Flush 3 Ml Syringe) 3 ml IVFLUSH QSHIFT [facility] Last Admin: 03/25/21 08:17 Dose: Not Given Documented by: DURAN Non-Admin Reason: IV Running Tamsulosin HCl (Tamsulosin Hcl 0.4 Mg Capsule) 0.4 mg PO BEDTIME [facility] Last Admin: 03/24/21 23:29 Dose: 0.4 mg Documented by: GMUAROMAK Labs CBC & Chem 7: 03/25/21 06:53 03/25/21 11:34 Labs: Laboratory Results - last 24 hr 03/24/21 03/24/21 03/24/21 17:31 17:31 17:31 MCV 88.7 MCH 30.1 MCHC 33.9 RDW 12.0 Plt Count 232 MPV 10.5 Immature Gran % (Auto) 0.4 Neut % (Auto) 79.3 H Lymph % (Auto) 12.7 L Weber % (Auto) 5.8 Eos % (Auto) 1.6 Baso % (Auto) 0.2 Lymph # (Auto) 1.2 [place] # (Auto) 0.6 Eos # (Auto) 0.2 Baso # (Auto) 0.0 Abs Immat Gran (auto) 0.04 H Absolute Neuts (auto) 7.6 Absolute Nucleated RBC 0.000 Nucleated RBC % (auto) 0.0 Anion Gap 31 H Estim Creat Clear Calc 3.6 Estimated GFR 3 Random Glucose 139 H Lactic Acid Calcium 7.8 L Iron TIBC % Saturation Unsat Iron Binding Troponin I High Sens B-Natriuretic Peptide 47 Urine Color Urine Appearance Urine pH Ur Specific [place] Urine Protein Urine Glucose (UA) Urine Ketones Urine Blood Urine Nitrite Ur Leukocyte Esterase Urine RBC Urine WBC Ur Squamous Epith Cells Urine Bacteria Stool Occult Blood COVID-19 (ECHO) COVID-19 Clin Com 03/24/21 03/24/21 03/24/21 17:32 17:32 19:36 MCV MCH MCHC RDW Plt Count MPV Immature Gran % (Auto) Neut % (Auto) Lymph % (Auto) Weber % (Auto) Eos % (Auto) Baso % (Auto) Lymph # (Auto) Weber # (Auto) Eos # (Auto) Baso # (Auto) Abs Immat Gran (auto) Absolute Neuts (auto) Absolute Nucleated RBC Nucleated RBC % (auto) Anion Gap Estim Creat Clear Calc Estimated GFR Random Glucose Lactic Acid Calcium Iron TIBC % Saturation Unsat Iron Binding Troponin I High Sens 25.2 B-Natriuretic Peptide Urine Color Urine Appearance Urine pH Ur Specific [place] Urine Protein Urine Glucose (UA) Urine Ketones Urine Blood Urine Nitrite Ur Leukocyte Esterase Urine RBC Urine WBC Ur Squamous Epith Cells Urine Bacteria Stool Occult Blood NEGATIVE COVID-19 (ECHO) Negative COVID-19 Clin Com See Note 03/24/21 03/25/21 03/25/21 19:36 06:53 06:53 MCV 89.8 MCH 30.7 MCHC 34.2 RDW 12.1 Plt Count 181 MPV 10.3 Immature Gran % (Auto) 0.4 Neut % (Auto) 83.9 H Lymph % (Auto) 9.4 L Weber % (Auto) 5.7 Eos % (Auto) 0.4 Baso % (Auto) 0.2 Lymph # (Auto) 1.1 L [place] # (Auto) 0.6 Eos # (Auto) 0.1 Baso # (Auto) 0.0 Abs Immat Gran (auto) 0.05 H Absolute Neuts (auto) 9.4 H Absolute Nucleated RBC 0.000 Nucleated RBC % (auto) 0.0 Anion Gap 28 H Estim Creat Clear Calc 3.7 Estimated GFR 3 Random Glucose 153 H Lactic Acid Calcium 7.3 L D Iron 173 H TIBC < 190 L % Saturation TNP Unsat Iron Binding < 17 Troponin I High Sens B-Natriuretic Peptide Urine Color RED Urine Appearance HAZY Urine pH 6.0 Ur Specific [place] 1.015 Urine Protein 2+ H Urine Glucose (UA) NEG Urine Ketones NEG Urine Blood 3+ H Urine Nitrite NEG Ur Leukocyte Esterase 3+ H Urine RBC TNTC H Urine WBC 30-49 H Ur Squamous Epith Cells NONE Urine Bacteria 2+ Stool Occult Blood COVID-19 (ECHO) COVID-19 Clin Com 03/25/21 06:53 MCV MCH MCHC RDW Plt Count MPV Immature Gran % (Auto) Neut % (Auto) Lymph % (Auto) [place] % (Auto) Eos % (Auto) Baso % (Auto) Lymph # (Auto) Weber # (Auto) Eos # (Auto) Baso # (Auto) Abs Immat Gran (auto) Absolute Neuts (auto) Absolute Nucleated RBC Nucleated RBC % (auto) Anion Gap Estim Creat Clear Calc Estimated GFR Random Glucose Lactic Acid 0.9 Calcium Iron TIBC % Saturation Unsat Iron Binding Troponin I High Sens B-Natriuretic Peptide Urine Color Urine Appearance Urine pH Ur Specific [place] Urine Protein Urine Glucose (UA) Urine Ketones Urine Blood Urine Nitrite Ur Leukocyte Esterase Urine RBC Urine WBC Ur Squamous Epith Cells Urine Bacteria Stool Occult Blood COVID-19 (ECHO) COVID-19 Clin Com Assessment and Plan (1) Intractable nausea and vomiting: Status: Acute (2) Weight loss: Status: Acute (3) UTI (urinary tract infection): Status: Acute (4) Acute renal failure: Status: Acute (5) Calculi, ureter: Status: Acute (6) Metabolic acidosis: Status: Acute Assessment and Plan: 70 yo M who reports no past medical history presents to the hospital with intractable nausea vomiting, weight loss, found to have severe kidney failure 1.DAVID- most likely postobstructive secondary to either enlarged prostate or or mass although no bladder mass seen on CT abdomen pelvis Severe metabolic acidosis-most likely driven by uremia, mild hyperkalemia BUN is 197 /cr 17 on bicarb drip- bicarb is still around 9 added BMP and VBG discussed with Nephro- recommended to monitor in ICU, discussed with ICU sharyn eugene will be transferred to ICU, also will need urological procedure follow-up management of obstructive uropathy, urologist made aware. also concetta is on ceftriaxone for possible uti, urine cultures pending 2 weight loss - most likely secondary to poor p.o. intake as well as nausea vomiting - will start him with regular diet as well as ensure supplement 3. intractable nausea vomiting - most likely secondary to uremia as well as DAVID on Zofran p.r.n. - supportive measures, IV fluid DVT prophylaxis:? Heparin subQ Above management discussed with ICU in detail length patient will be tra nsferred to ICU- for further management. Quality Stroke Does the patient have a stroke diagnosis?: No VTE Prior VTE?: No VTE Risk Level:: Medical - moderate - high VTE Device Contraindication: Treatment Not Indicated VTE Drug Contraindication: N/A - Med Ordered
[2021-03-25 08:33] LABS: Folate 5.9 ng/mL (> or = 4.0); Vitamin B12 1074 pg/mL (200-900)
[2021-03-25 08:47] LABS: Ferritin 1821 ng/mL (20-250)
--- NOTE | 2021-03-25 09:57 | PC.NURSE ---
Reoprt given to [facility]SS RN. Plan for OR this afternoon.
--- NOTE | 2021-03-25 11:49 | PC.NURSE ---
Call received from MD Arredondo that pt is now accepted by '[facility] in ICU following cystoscopy procedure. Pt to be picked up [facility] shortly.
[2021-03-25 12:17] LABS: Anion Gap 29 (12-20); Calcium 7.3 mg/dL (8.4-10.2); Carbon Dioxide 11 mmol/L (22-29); Chloride 100 mmol/L (96-108); Creatinine Clr Calc Pharmacy 3.7; Estimated Glomerular Filt Rate 3; Glucose Random 144 mg/dL (60-115); Potassium 5.3 mmol/L (3.3-5.1); Sodium 135 mmol/L (135-145)
[2021-03-25 12:20] LABS: ABG Base Excess -13.4 mmol/L; ABG HCO3 10 mmol/L (22-26); ABG pCO2 19 mmHg (32-45); ABG pCO2 TC 18 mmHg (32-45); ABG pH 7.32 (7.35-7.45); ABG pH TC 7.33 (7.35-7.45); ABG pO2 124 mmHg (83-108); ABG pO2 TC 119 (83-108)
[2021-03-25 12:31] LABS: VBG Base Excess -14.5 mmol/L; VBG HCO3 9 mmol/L (22-26); VBG pCO2 16 mmHg; VBG pH 7.33 (7.32-7.43); VBG pO2 195 mmHg
[2021-03-25 12:32] LABS: Blood Urea Nitrogen 198 mg/dL (9-16)
[2021-03-25 12:37] LABS: Venous Blood Gas Refer to POC result
--- NOTE | 2021-03-25 12:47 | MHC.SHP ---
Pre-Procedural Eval Section A Date of Service: 03/25/21 The patient is an INPATIENT: Yes Changes since office visit: No Cold of Flu in the past 2 weeks, No New Medical Problems, No Changes in Medication and No Patient answered all questions The History & Physical has been completed within 30 days and I have reviewed it.: Yes Section B Chief Complaint: DAVID, UTI Allergies: Allergies Allergy/AdvReac Type Severity Reaction Status Date / Time No Known Allergies Allergy Verified 03/24/21 17:13 Plan Diagnosis/Plan: Unchanged (Cystoscopy, bilateral retrograde, bilateral stent placement) I have reviewed the history and physical and performed a pertinent physical examination on my patient. No changes have occurred unless specified.
--- NOTE | 2021-03-25 12:54 | P.CONAN_ITS ---
HPI - Anesthesia Eval Consult details Narrative: 70 yo male patient with BPH, bilateral hydronephrosis, renal failure [facility] Active Problems Active Problems: All Active Problems (Updated 03/25/21 @ 06:34 by Antonio Chew MD) Intractable nausea and vomiting (Acute). No vomiting for 3 days Weight loss (Acute) UTI (urinary tract infection) (Acute) Metabolic acidosis (Acute) Acute renal failure (Acute) Calculi, ureter (Acute) Falls at home secondary to weakness Dizziness with sitting up. Passed out about 6 times at home Past Medical History Medical History (Updated 03/25/21 @ 13:00 by Thuy oRck MD) No pertinent past medical history Seizure disorder Family History Family History Other No pertinent family history in first degree relatives Family history of problems with anesthesia: No Surgical History Surgical History H/O hernia repair History of Problems with Anesthesia: No Social History Social History Alcohol intake: former Patient Tobacco Use Status: Never used Tobacco Second Hand Smoke Exposure: No Use of substances other than those prescribed or required for medical reasons: No Are you DNR?: No Advance Directives: No Advance Directives Information Provided: No Advance Directives on File: No Meds Allergies Allergy/AdvReac Type Severity Reaction Status Date / Time No Known Allergies Allergy Verified 03/24/21 17:13 Active Medications: Current Medications Acetaminophen (Acetaminophen 325 Mg Tablet) 650 mg PO Q6H PRN PRN Reason: Pain, Mild (Pain Scale 1-3) Docusate Sodium (Docusate Sodium 100 Mg Capsule) 100 mg PO DAILY PRN PRN Reason: Constipation Heparin Sodium (Porcine) (Heparin Sodium,Porcine 5,000 Unit/Ml Vial) 5,000 unit SUBCUT Q12H REPLACED BY [facility] Last Admin: 03/25/21 07:56 Dose: 5,000 unit Documented by: Ceftriaxone Sodium 1 gm/ (Sodium Chloride) 50 mls @ 100 mls/hr IV Q24H REPLACED BY [facility] Last Infusion: 03/25/21 08:13 Dose: Infused Documented by: Morphine Sulfate (Morphine Sulfate 4 Mg/Ml Cartridge) 4 mg IVPUSH Q4H PRN; Protocol PRN Reason: Pain, Severe (Pain Scale 7-10) Last Admin: 03/25/21 10:04 Dose: 4 mg Documented by: Ondansetron HCl (Ondansetron Hcl 4 Mg/2 Ml Vial) 4 mg IVPUSH Q8H PRN PRN Reason: Nausea and Vomiting Sodium Chloride (0.9 % Sodium Chloride Flush 3 Ml Syringe) 3 ml IVFLUSH QSHIFT REPLACED BY [facility] Last Admin: 03/25/21 08:17 Dose: Not Given Documented by: Tamsulosin HCl (Tamsulosin Hcl 0.4 Mg Capsule) 0.4 mg PO BEDTIME REPLACED BY [facility] Last Admin: 03/24/21 23:29 Dose: 0.4 mg Documented by: Home Medications Medication Instructions Recorded Confirmed Last Taken Type No Known Home Meds 03/24/21 03/24/21 Unknown History Exam Exam Date and Time: March 25, 2021 1254 Height,Weight and Vital Signs: Height 5 ft 11 in Weight 68.039 kg Last Vital Signs Temp 97.3 F 03/25/21 12:50 Pulse 97 03/25/21 12:50 Resp 16 03/25/21 12:50 BP 130/65 03/25/21 12:50 Pulse Ox 96 03/25/21 12:50 Pertinent Lab Results Pertinent Lab Results: Laboratory Tests 03/24/21 03/24/21 03/24/21 17:31 17:31 17:31 WBC 9.6 RBC 2.66 L Hgb 8.0 L Hct 23.6 L MCV 88.7 MCH 30.1 MCHC 33.9 RDW 12.0 Plt Count 232 MPV 10.5 Immature Gran % (Auto) 0.4 Neut % (Auto) 79.3 H Lymph % (Auto) 12.7 L Rains % (Auto) 5.8 Eos % (Auto) 1.6 Baso % (Auto) 0.2 Lymph # (Auto) 1.2 Rains # (Auto) 0.6 Eos # (Auto) 0.2 Baso # (Auto) 0.0 Abs Immat Gran (auto) 0.04 H Absolute Neuts (auto) 7.6 Absolute Nucleated RBC 0.000 Nucleated RBC % (auto) 0.0 O2 Saturation ABG pH at Pt Temp ABG pH (Temp Correct) ABG pCO2 at Pt Temp ABG pCO2 (Temp Corrct ABG pO2 at Pt Temp ABG pO2 (Temp Correct ABG HCO3 ABG Base Excess (Actual) VBG pH VBG pCO2 VBG pO2 VBG HCO3 VBG O2 Saturation VBG Base Excess Sodium 133 L Potassium 5.2 H Chloride 99 Carbon Dioxide 8 L* Anion Gap 31 H BUN 197 H Creatinine 17.66 H* Estim Creat Clear Calc 3.6 Estimated GFR 3 Random Glucose 139 H Lactic Acid Calcium 7.8 L Iron TIBC % Saturation Unsat Iron Binding Ferritin Troponin I High Sens B-Natriuretic Peptide 47 Vitamin B12 Folate Urine Color Urine Appearance Urine pH Ur Specific [place] Urine Protein Urine Glucose (UA) Urine Ketones Urine Blood Urine Nitrite Ur Leukocyte Esterase Urine RBC Urine WBC Ur Squamous Epith Cells Urine Bacteria Stool Occult Blood COVID-19 (ECHO) COVID-19 [employer] Com Blood Type Antibody Screen 03/24/21 03/24/21 03/24/21 17:32 17:32 19:36 WBC RBC Hgb Hct MCV MCH MCHC RDW Plt Count MPV Immature Gran % (Auto) Neut % (Auto) Lymph % (Auto) Rains % (Auto) Eos % (Auto) Baso % (Auto) Lymph # (Auto) Rains # (Auto) Eos # (Auto) Baso # (Auto) Abs Immat Gran (auto) Absolute Neuts (auto) Absolute Nucleated RBC Nucleated RBC % (auto) O2 Saturation ABG pH at Pt Temp ABG pH (Temp Correct) ABG pCO2 at Pt Temp ABG pCO2 (Temp Corrct ABG pO2 at Pt Temp ABG pO2 (Temp Correct ABG HCO3 ABG Base Excess (Actual) VBG pH VBG pCO2 VBG pO2 VBG HCO3 VBG O2 Saturation VBG Base Excess Sodium Potassium Chloride Carbon Dioxide Anion Gap BUN Creatinine Estim Creat Clear Calc Estimated GFR Random Glucose Lactic Acid Calcium Iron TIBC % Saturation Unsat Iron Binding Ferritin Troponin I High Sens 25.2 B-Natriuretic Peptide Vitamin B12 Folate Urine Color Urine Appearance Urine pH Ur Specific [place] Urine Protein Urine Glucose (UA) Urine Ketones Urine Blood Urine Nitrite Ur Leukocyte Esterase Urine RBC Urine WBC Ur Squamous Epith Cells Urine Bacteria Stool Occult Blood NEGATIVE COVID-19 (ECHO) Negative COVID-19 Clin Com See Note Blood Type Antibody Screen 03/24/21 03/25/21 03/25/21 19:36 06:53 06:53 WBC 11.2 H RBC 2.54 L Hgb 7.8 L Hct 22.8 L MCV 89.8 MCH 30.7 MCHC 34.2 RDW 12.1 Plt Count 181 MPV 10.3 Immature Gran % (Auto) 0.4 Neut % (Auto) 83.9 H Lymph % (Auto) 9.4 L Rains % (Auto) 5.7 Eos % (Auto) 0.4 Baso % (Auto) 0.2 Lymph # (Auto) 1.1 L Rains # (Auto) 0.6 Eos # (Auto) 0.1 Baso # (Auto) 0.0 Abs Immat Gran (auto) 0.05 H Absolute Neuts (auto) 9.4 H Absolute Nucleated RBC 0.000 Nucleated RBC % (auto) 0.0 O2 Saturation ABG pH at Pt Temp ABG pH (Temp Correct) ABG pCO2 at Pt Temp ABG pCO2 (Temp Corrct ABG pO2 at Pt Temp ABG pO2 (Temp Correct ABG HCO3 ABG Base Excess (Actual) VBG pH VBG pCO2 VBG pO2 VBG HCO3 VBG O2 Saturation VBG Base Excess Sodium 132 L Potassium 5.0 Chloride 100 Carbon Dioxide 9 L* Anion Gap 28 H BUN 196 H Creatinine 17.29 H* Estim Creat Clear Calc 3.7 Estimated GFR 3 Random Glucose 153 H Lactic Acid Calcium 7.3 L D Iron 173 H TIBC < 190 L % Saturation TNP Unsat Iron Binding < 17 Ferritin 1821 H Troponin I High Sens B-Natriuretic Peptide Vitamin B12 Folate Urine Color RED Urine Appearance HAZY Urine pH 6.0 Ur Specific [place] 1.015 Urine Protein 2+ H Urine Glucose (UA) NEG Urine Ketones NEG Urine Blood 3+ H Urine Nitrite NEG Ur Leukocyte Esterase 3+ H Urine RBC TNTC H Urine WBC 30-49 H Ur Squamous Epith Cells NONE Urine Bacteria 2+ Stool Occult Blood COVID-19 (ECHO) COVID-19 Clin Com Blood Type Antibody Screen 03/25/21 03/25/21 03/25/21 06:53 06:53 08:32 WBC RBC Hgb Hct MCV MCH MCHC RDW Plt Count MPV Immature Gran % (Auto) Neut % (Auto) Lymph % (Auto) Rains % (Auto) Eos % (Auto) Baso % (Auto) Lymph # (Auto) Rains # (Auto) Eos # (Auto) Baso # (Auto) Abs Immat Gran (auto) Absolute Neuts (auto) Absolute Nucleated RBC Nucleated RBC % (auto) O2 Saturation ABG pH at Pt Temp ABG pH (Temp Correct) ABG pCO2 at Pt Temp ABG pCO2 (Temp Corrct ABG pO2 at Pt Temp ABG pO2 (Temp Correct ABG HCO3 ABG Base Excess (Actual) VBG pH VBG pCO2 VBG pO2 VBG HCO3 VBG O2 Saturation VBG Base Excess Sodium Potassium Chloride Carbon Dioxide Anion Gap BUN Creatinine Estim Creat Clear Calc Estimated GFR Random Glucose Lactic Acid 0.9 Calcium Iron TIBC % Saturation Unsat Iron Binding Ferritin Troponin I High Sens B-Natriuretic Peptide Vitamin B12 1074 H Folate 5.9 Urine Color Urine Appearance Urine pH Ur Specific [place] Urine Protein Urine Glucose (UA) Urine Ketones Urine Blood Urine Nitrite Ur Leukocyte Esterase Urine RBC Urine WBC Ur Squamous Epith Cells Urine Bacteria Stool Occult Blood COVID-19 (ECHO) COVID-19 Clin Com Blood Type O Positive Antibody Screen NEGATIVE 03/25/21 03/25/21 03/25/21 11:34 11:34 12:14 WBC RBC Hgb Hct MCV MCH MCHC RDW Plt Count MPV Immature Gran % (Auto) Neut % (Auto) Lymph % (Auto) Rains % (Auto) Eos % (Auto) Baso % (Auto) Lymph # (Auto) Rains # (Auto) Eos # (Auto) Baso # (Auto) Abs Immat Gran (auto) Absolute Neuts (auto) Absolute Nucleated RBC Nucleated RBC % (auto) O2 Saturation 97.0 ABG pH at Pt Temp 7.32 L ABG pH (Temp Correct) 7.33 L ABG pCO2 at Pt Temp 19 L* ABG pCO2 (Temp Corrct 18 L* ABG pO2 at Pt Temp 124 H ABG pO2 (Temp Correct 119 H ABG HCO3 10 L ABG Base Excess (Actual) -13.4 VBG pH VBG pCO2 VBG pO2 VBG HCO3 VBG O2 Saturation VBG Base Excess Sodium Cancelled 135 Potassium Cancelled 5.3 H Chloride Cancelled 100 Carbon Dioxide Cancelled 11 L Anion Gap Cancelled 29 H BUN Cancelled 198 H Creatinine Cancelled 17.17 H* Estim Creat Clear Calc Cancelled 3.7 Estimated GFR Cancelled 3 Random Glucose Cancelled 144 H Lactic Acid Calcium Cancelled 7.3 L Iron TIBC % Saturation Unsat Iron Binding Ferritin Troponin I High Sens B-Natriuretic Peptide Vitamin B12 Folate Urine Color Urine Appearance Urine pH Ur Specific [place] Urine Protein Urine Glucose (UA) Urine Ketones Urine Blood Urine Nitrite Ur Leukocyte Esterase Urine RBC Urine WBC Ur Squamous Epith Cells Urine Bacteria Stool Occult Blood COVID-19 (ECHO) COVID-19 [employer] Blood Type Antibody Screen 03/25/21 12:21 WBC RBC Hgb Hct MCV MCH MCHC RDW Plt Count MPV Immature Gran % (Auto) Neut % (Auto) Lymph % (Auto) Rains % (Auto) Eos % (Auto) Baso % (Auto) Lymph # (Auto) Rains # (Auto) Eos # (Auto) Baso # (Auto) Abs Immat Gran (auto) Absolute Neuts (auto) Absolute Nucleated RBC Nucleated RBC % (auto) O2 Saturation ABG pH at Pt Temp ABG pH (Temp Correct) ABG pCO2 at Pt Temp ABG pCO2 (Temp Corrct ABG pO2 at Pt Temp ABG pO2 (Temp Correct ABG HCO3 ABG Base Excess (Actual) VBG pH 7.33 VBG pCO2 16 VBG pO2 195 VBG HCO3 9 L VBG O2 Saturation 99.0 VBG Base Excess -14.5 Sodium Potassium Chloride Carbon Dioxide Anion Gap BUN Creatinine Estim Creat Clear Calc Estimated GFR Random Glucose Lactic Acid Calcium Iron TIBC % Saturation Unsat Iron Binding Ferritin Troponin I High Sens B-Natriuretic Peptide Vitamin B12 Folate Urine Color Urine Appearance Urine pH Ur Specific [place] Urine Protein Urine Glucose (UA) Urine Ketones Urine Blood Urine Nitrite Ur Leukocyte Esterase Urine RBC Urine WBC Ur Squamous Epith Cells Urine Bacteria Stool Occult Blood COVID-19 (ECHO) COVID-19 [employer] Com Blood Type Antibody Screen Airway Mallampati Class: II TM Dist: >3cm Neck ROM: Full Loose/Missing/Broken Teeth: Yes (Poor. Many missing, some broken) Heart: RRR Lungs: CTAB Assessment and Plan Assessment Anesthesia Assessment: Anesthesia Plan Discussed and Chart Reviewed Final Anesthetic Review Family History of Problems with Anesthesia: No History of Problems with Anesthesia: No NPO: No (5 hours. 3sips of coffee, quarter cup orange juice) ASA Class: IV and Emergency Final Preanesthetic Review: No Changes in Pt Med Stat, Meds/Allgs Chart Review ed, Consent Obtained/Reviewed and Anes Risks/Benef Reviewed Patient Risk: High Procedure Risk: Low Assessment/Block/Sedation in SS: Assess/Block/Sedation-SS Anesthetic Plan Anesthetic Plan: GA and MAC: Disposition: Standard PACU and Inp. Admit - IMC
[2021-03-25 13:06] LABS: ABG Refer to POC result
[2021-03-25] MEDS: levoFLOXacin/D5W 500 MG/100 ML PIGGYBACK 100 MG IV (13:15)
--- NOTE | 2021-03-25 14:57 | P.OP_ITS ---
Operative Note Operative Note Date of Service: 03/25/21 Narrative: PreOperative Diagnosis: Bilateral hydronephrosis, elevated creatinine, enlarged prostate Post Operative Diagnosis: Same Procedure: 1. Cystoscopy with bilateral retrogrades 2. Bilateral stent placement 3. Grijalva catheter placement Surgeon: Dr Herve Herrera Anesthesia: Sedation Indications for procedure: 70-year-old male. Presented through emergency room with creatinine 17. Decreased hematocrit. White count 11.2. Imaging showed bilateral hydronephrosis down to the level of the bladder with large bladder and J hooking consistent with silent prostatism. Recommendation for bilateral stent placement in Grijalva catheter administration for decompression. Procedure: After informed consent was verified the patient was brought to the operating room and placed in a supine position. Anesthesia was administered per protocol. The patient was placed in modified dorsal lithotomy position and prepped and draped in sterile fashion. Safety pause time-out performed. Antibiotics have been given. Twenty-two Trin[place] cystoscope placed per urethra. No abnormality noted the a nterior posterior urethra. Bladder was examined. Bladder showed redness and inflammation throughout. Hematuria was noted. Finding the ureteric orifice was difficult. The left ureteric orifice was found and retrograde examination performed. Hydroureteronephrosis noted. Sensor guidewire placed. Six Trin[place] by 24 cm stent was placed without difficulty. Similar procedure repeated for right hand side. Eighteen Trin[place] Grijalva catheter placed at completion of the procedure to allowed for drainage. Would recommend sending urine for cytology at some point. He tolerated procedure well and was transferred in stable condition to the recovery area Pathology: Drains: Six Trin[place] by 24 cm double-J stent placed on each side
[2021-03-25 16:20] LABS: ABG Base Excess -11.3 mmol/L; ABG HCO3 12 mmol/L (22-26); ABG pCO2 20 mmHg (32-45); ABG pCO2 TC 20 mmHg (32-45); ABG pH 7.37 (7.35-7.45); ABG pH TC 7.36 (7.35-7.45); ABG pO2 157 mmHg (83-108); ABG pO2 TC 160 (83-108)
--- NOTE | 2021-03-25 16:23 | P.CONNP_ITS ---
History of Present Illness Reason for Consult Consult date: 03/25/21 Chief Complaint Chief complaint: DAVID, UTI History of Present Illness Narrative: 71-year-old male presented to hospital with nausea vomiting since August as well as progressive and significant weight loss, loss of appetite, and recently diarrhea.? Patient reports that he started having 5/7 days nausea and vomiting starting in August that progressed to loss of appetite, he tried to stay hydrated by drinking Ensure but he was in even tolerating bad, he was throwing up everything he drank and or 8.? He noticed that he started losing weight, until finally he realize he had lost 60 lb since August.? He has had loss of bladder control for over a year now, but has not noticed , any urinary urgency, dysuria, or frequency given his incontinence.? He denies any abdominal pain, and he reports recent diarrhea with no black stools.? He has no hemoptysis, hematemesis but has been experiencing epistaxis recently everytime he blows his nose.? He has noticed decreased urine output in his diapers for the past few weeks. Labs are significant for WBC count 9.6, hemoglobin of 8.0 with no previous for comparison, sodium of 133, potassium 5.2, bicarb of 8, BUN 197, creatinine of 17.66, Abdominal CT shows moderate bilateral hydroureteronephrosis with uterus dilated at the level of the ureterovascular junctions.? There is a 4 mm stone in the distal right ureter however this does not appear to be obstructing as the uterus dilated to a significantly larger dimer that this stone measuring 1.4 cm.? Urinary bladder is significantly distended.? Bilateral adrenal adenomas measuring 1.9 cm on the right and 2.0 cm on the left. Nephrology was consulted, patient started on bicarb drip and was admitted for further management Review of Systems Review of Systems Yes all other systems are reviewed and are negative PMFSH Past Medical History Medical History No pertinent past medical history Seizure disorder Family History Family History Other No pertinent family history in first degree relatives Surgical History Surgical History H/O hernia repair Social History Social History Alcohol intake: former Patient Tobacco Use Status: Never used Tobacco Second Hand Smoke Exposure: No Meds Allergies Allergy/AdvReac Type Severity Reaction Status Date / Time No Known Allergies Allergy Verified 03/24/21 17:13 Active Medications: Current Medications Acetaminophen (Acetaminophen 325 Mg Tablet) 650 mg PO Q6H PRN PRN Reason: Pain, Mild (Pain Scale 1-3) Acetaminophen (Acetaminophen 325 Mg Tablet) 650 mg PO ONCE PRN PRN Reason: Pain, Mild (Pain Scale 1-3) Docusate Sodium (Docusate Sodium 100 Mg Capsule) 100 mg PO DAILY PRN PRN Reason: Constipation Fentanyl (Fentanyl Citrate/Pf 100 Mcg/2 Ml Vial) 25 mcg IVPUSH Q5M PRN; Protocol PRN Reason: Pain, Moderate (Pain Scale 4-6 Heparin Sodium (Porcine) (Heparin Sodium,Porcine 5,000 Unit/Ml Vial) 5,000 unit SUBCUT Q12H [facility] Last Admin: 03/25/21 07:56 Dose: 5,000 unit Documented by: Ceftriaxone Sodium 1 gm/ (Sodium Chloride) 50 mls @ 100 mls/hr IV Q24H [facility] Last Infusion: 03/25/21 08:13 Dose: Infused Documented by: Lactated Ringer's (Lr) 500 mls @ 20 mls/hr IVCONT .Q24H [facility] Morphine Sulfate (Morphine Sulfate 4 Mg/Ml Cartridge) 4 mg IVPUSH Q4H PRN; Protocol PRN Reason: Pain, Severe (Pain Scale 7-10) Last Admin: 03/25/21 10:04 Dose: 4 mg Documented by: Ondansetron HCl (Ondansetron Hcl 4 Mg/2 Ml Vial) 4 mg IVPUSH Q8H PRN PRN Reason: Nausea and Vomiting Ondansetron HCl (Ondansetron Hcl 4 Mg/2 Ml Vial) 4 mg IVPUSH ONCE PRN PRN Reason: Nausea and Vomiting Sodium Chloride (0.9 % Sodium Chloride Flush 3 Ml Syringe) 3 ml IVFLUSH QSHIFT [facility] Last Admin: 03/25/21 08:17 Dose: Not Given Documented by: Tamsulosin HCl (Tamsulosin Hcl 0.4 Mg Capsule) 0.4 mg PO BEDTIME [facility] Last Admin: 03/24/21 23:29 Dose: 0.4 mg Documented by: Home Medications Medication Instructions Recorded Confirmed Last Taken Type No Known Home Meds 03/24/21 03/24/21 Unknown History Physical Exam Vital Signs: Last Vital Signs Temp 97.9 F 03/25/21 16:20 Pulse 89 03/25/21 16:20 Resp 16 03/25/21 16:20 BP 100/59 L 03/25/21 16:20 Pulse Ox 99 03/25/21 16:20 BMI result Body Mass Index 20.9 Const General: well developed Eyes EOM: EOMs intact bilaterally Neck Neck: Yes supple Resp Auscultation: diminished lung sounds Cardio Rate: regular rate GI Palpation (GI): Soft to palpation Neuro General: moves all extremities Results Lab Results Result Diagrams: 03/25/21 06:53 03/25/21 11:34 Lab results: Chemistry 03/24/21 03/25/21 03/25/21 17:31 06:53 11:34 Sodium 133 L 132 L Cancelled Potassium 5.2 H 5.0 Cancelled Carbon Dioxide 8 L* 9 L* Cancelled BUN 197 H 196 H Cancelled Creatinine 17.66 H* 17.29 H* Cancelled Calcium 7.8 L 7.3 L D Cancelled 03/25/21 11:34 Sodium 135 Potassium 5.3 H Carbon Dioxide 11 L BUN 198 H Creatinine 17.17 H* Calcium 7.3 L Hematology 03/24/21 03/25/21 17:31 06:53 WBC 9.6 11.2 H Hgb 8.0 L 7.8 L Plt Count 232 181 Urinalysis 03/24/21 19:36 Urine Color RED Urine Appearance HAZY Urine pH 6.0 Ur Specific [place] 1.015 Urine Protein 2+ H Urine Glucose (UA) NEG Urine Ketones NEG Urine Blood 3+ H Urine Nitrite NEG Ur Leukocyte Esterase 3+ H Urine RBC TNTC H Urine WBC 30-49 H Ur Squamous Epith Cells NONE Assessment and Plan (1) Acute renal failure: Status: Acute DAVID due to obstructive uropathy Likely has tubular injury as well Was given bicarb drip for metabolic acidosis Serum K 5.3; Urology seen- will go to [place] If renal functions doesnt improve & continues to have uremic symptoms, may need renal replacement Needs to watch for post obstructive diuresis following urology intervention Labs AM; Shall closely follow up Procedures Date of Service Date of Service: 03/25/21
[2021-03-25 16:48] LABS: Calcium 7.1 mg/dL (8.4-10.2); Creatinine Clr Calc Pharmacy 3.8; Estimated Glomerular Filt Rate 3
--- NOTE | 2021-03-25 16:48 | W.PM.CCCN ---
History of Present Illness Data of Consult Service Date: 03/25/21 Requesting physician: Andrews Spence Primary Care Provider: None Physician HPI Reason for consult: Uremia 70-year-old male with no medical care no medications no known allergies sick now chronically with acute worsening spanning approximately 6 months with just weakness loss of appetite nausea vomiting altered bowel habits and of late of course diminishing urine output but apparent hematuria and presents to the emergency room complaining of shortness of breath with all the above symptoms and found to have a BUN of nearly 200 creatinine of over 17 serum bicarb of 8 with significant positive anion gap profoundly anemic with a hemoglobin of about set 7 and half to 8 very pale not in respiratory distress but somewhat hyper knee ache and on his blood gas cut in a clearly has a partially compensated metabolic acidosis with a pCO2 of a per of 18-20 and a pH it is just above 7.3 and evidence of bilateral hydronephrosis with significant bladder distension and therefore presumptive source is is prostatic so we had a Grijalva catheter placed and then cystoscopy resulted in bilateral stenting for the bilateral hydronephrosis but he never really developed a postobstructive diuresis he just had very small urine output and thus far no significant change in BUN and creatinine so the fear is of course is that some of this may be chronic but at this point with fairly compensated pH no significant electrolyte issues and a bedside echo that I had just performed demonstrating normal LV and RV size and function no pericardial disease no primary valve disease and inferior vena cava is not distended so he is clearly also not hypervolemic in his chest x-ray is negative and his BNP is low so we have no immediate indication for dialysis and therefore will just watch and see if as a relief of the obstruction he improves Review of Systems Review of Systems: Yes all other systems are reviewed and are negative [facility] Past Medical History Medical History No pertinent past medical history Seizure disorder Family History Family History Other No pertinent family history in first degree relatives Surgical History Surgical History H/O hernia repair Social History Social History Household Members: Other Household Members Other:: [employer] [facility] Housing: Apartment Do you presently have visiting nurse or other home services: No Alcohol intake: former Patient Tobacco Use Status: Former Tobacco user Second Hand Smoke Exposure: No Substance Use Type: Marijuana Meds Allergies Allergy/AdvReac Type Severity Reaction Status Date / Time No Known Allergies Allergy Verified 03/24/21 17:13 Active Medications: Current Medications Acetaminophen (Acetaminophen 325 Mg Tablet) 650 mg PO Q6H PRN PRN Reason: Pain, Mild (Pain Scale 1-3) Acetaminophen (Acetaminophen 325 Mg Tablet) 650 mg PO ONCE PRN PRN Reason: Pain, Mild (Pain Scale 1-3) Docusate Sodium (Docusate Sodium 100 Mg Capsule) 100 mg PO DAILY PRN PRN Reason: Constipation Fentanyl (Fentanyl Citrate/Pf 100 Mcg/2 Ml Vial) 25 mcg IVPUSH Q5M PRN; Protocol PRN Reason: Pain, Moderate (Pain Scale 4-6 Heparin Sodium (Porcine) (Heparin Sodium,Porcine 5,000 Unit/Ml Vial) 5,000 unit SUBCUT Q12H [facility] Last Admin: 03/25/21 07:56 Dose: 5,000 unit Documented by: Lactated Ringer's (Lr) 500 mls @ 20 mls/hr IVCONT .Q24H [facility] Morphine Sulfate (Morphine Sulfate 4 Mg/Ml Cartridge) 4 mg IVPUSH Q4H PRN; Protocol PRN Reason: Pain, Severe (Pain Scale 7-10) Last Admin: 03/25/21 10:04 Dose: 4 mg Documented by: Ondansetron HCl (Ondansetron Hcl 4 Mg/2 Ml Vial) 4 mg IVPUSH Q8H PRN PRN Reason: Nausea and Vomiting Ondansetron HCl (Ondansetron Hcl 4 Mg/2 Ml Vial) 4 mg IVPUSH ONCE PRN PRN Reason: Nausea and Vomiting Sodium Chloride (0.9 % Sodium Chloride Flush 3 Ml Syringe) 3 ml IVFLUSH QSHIFT [facility] Last Admin: 03/25/21 08:17 Dose: Not Given Documented by: Home Medications Medication Instructions Recorded Confirmed Last Taken Type No Known Home Meds 03/24/21 03/24/21 Unknown History Physical Exam Vital Signs: Vital Signs: Last Vital Signs Temp 97.9 F 03/25/21 16:20 Pulse 89 03/25/21 16:31 Resp 16 03/25/21 16:31 BP 100/62 12/17/21 16:31 Pulse Ox 99 03/25/21 16:31 BMI result Body Mass Index 20.9 Currently sinus rhythm and EKG showing left ventricular enlargement but no ST-T changes adequate blood pressure of about 110 oxygen saturation with comfortable respiratory rate and saturation is 99% and has good bilateral carotid upstrokes no neck vein distension no rubs Abdomen is soft no organomegaly and good bowel sounds but he has marked pallor fairly profound anemia which if it were to get worse with continued hematuria we might need to consider at least 1 unit transfusion Results Labs CBC & Chem 7: 03/26/21 05:19 03/26/21 05:19 Labs: Short CBC 03/24/21 03/25/21 Range/Units 17:31 06:53 WBC 9.6 11.2 H (4.8-10.8) X10*3/uL Hgb 8.0 L 7.8 L (14.0-18.0) g/dl Hct 23.6 L 22.8 L (42.0-52.0) % Plt Count 232 181 (160-400) X10*3/uL BMP 03/24/21 03/25/21 03/25/21 17:31 06:53 11:34 Sodium 133 L 132 L Cancelled Potassium 5.2 H 5.0 Cancelled Chloride 99 100 Cancelled Carbon Dioxide 8 L* 9 L* Cancelled BUN 197 H 196 H Cancelled Creatinine 17.66 H* 17.29 H* Cancelled Calcium 7.8 L 7.3 L D Cancelled 03/25/21 11:34 Sodium 135 Potassium 5.3 H Chloride 100 Carbon Dioxide 11 L BUN 198 H Creatinine 17.17 H* Calcium 7.3 L Urine 03/24/21 Range/Units 19:36 Urine Color RED Urine Appearance HAZY Urine pH 6.0 (5.0-8.0) Ur Specific [place] 1.015 (1.005-1.025) Urine Protein 2+ H (NEG-TRACE) MG/DL Urine Glucose (UA) NEG (NEG) MG/DL Microbiology Microbiology Results: Microbiology 03/24/21 19:44 Urine Catheterized - Grijalva Catheter Urine Culture - Preliminary No growth to date. Assessment and Plan (1) Intractable nausea and vomiting: Status: Acute (2) Weight loss: Status: Acute (3) UTI (urinary tract infection): Status: Acute (4) Metabolic acidosis: Status: Acute (5) Acute renal failure: Status: Acute (6) Calculi, ureter: Status: Acute (7) Anemia: Status: Acute (8) Hematuria: Status: Acute (9) Oliguria after procedure: Status: Acute (10) Uremia syndrome: Status: Acute Follow his blood gas and chemistries and his volume status and if any of the above demand consider dialysis catheter and at least temporary hemodialysis but currently that is not the case
[2021-03-25 16:49] LABS: Anion Gap 27 (12-20); Carbon Dioxide 12 mmol/L (22-29); Chloride 100 mmol/L (96-108); Glucose Random 139 mg/dL (60-115); Potassium 4.7 mmol/L (3.3-5.1); Sodium 134 mmol/L (135-145)
[2021-03-25 17:00] LABS: Blood Urea Nitrogen 195 mg/dL (9-16)
[2021-03-25] MEDS: 0.9 % Sodium Chloride Flush 3 ML SYRINGE IVFLUSH (17:07)
--- NOTE | 2021-03-25 17:57 | PC.NURSE ---
Addendum entered by Katia Aragon RN 03/25/21 18:10: CORRECTION: RIGHT DELTOID Original Note: PT VERBALIZED IN FRONT OF MD AND THIS RN THAT HE WOULD LIKE TO BE A DNR/DNI. CODE STATUS CHANGED PER MD. PT STATES HE DID NOT GET ANY COVID VACCINES - CONSIDERS HIMSELF A HERMIT AGREED TO RECEIVING THE FLU VACCINE - ADMINISTERED IN LEFT DELTOID.
[2021-03-25] MEDS: Sodium Bicarbonate 8.4% 100 MEQ in Dextrose 5 % 900 ML 50 MEQ IV (18:07)
[2021-03-25 23:01] LABS: ABG Refer to POC result
[2021-03-26] VITALS (31 sets, daily range): BP systolic 94–143; BP diastolic 41–81; PULSE 77–102; RESP 11–116; TEMP 36.1–36.8; O2SAT 81–100; BMI 26.6
[2021-03-26] MEDS: 0.9 % Sodium Chloride Flush 3 ML SYRINGE IVFLUSH ×4 (00:27→23:54)
[2021-03-26 06:05] LABS: MANUAL DIFF FLAG NO
[2021-03-26 06:38] LABS: Basophils Percent Auto 0.1 % (0-2); Eosinophils Absolute Auto 0.1 X10*3/uL (0.0-0.4); Eosinophils Percent Auto 1.3 % (0-4); Hematocrit 21.4 % (42.0-52.0); Hemoglobin 7.4 g/dl (14.0-18.0); Imm Gran Abs Auto 0.05 X10*3/uL (0.00-0.03); Imm Gran Pct Auto 0.5 % (0.0-0.4); Lymphocytes Absolute Auto 0.8 X10*3/uL (1.2-4.9); Lymphocytes Percent Auto 8.5 % (20-40); Mean Corpuscular HGB Conc 34.6 g/dl (31.0-36.0); Mean Corpuscular Hemoglobin 30.7 pg (27.0-33.0); Mean Corpuscular Volume 88.8 fL (80.0-98.0); Monocytes Absolute Auto 0.8 X10*3/uL (0.1-1.2); Monocytes Percent Auto 7.8 % (2-11); Neutrophils Absolute Auto 7.9 x10*3/uL (2.0-8.3); Neutrophils Percent Auto 81.8 % (45-73); Platelet Count 162 X10*3/uL (160-400); Red Blood Count 2.41 X10*6/uL (4.60-5.80); Red Cell Distribution Width 11.9 % (11.0-16.0); White Blood Count 9.6 X10*3/uL (4.8-10.8)
[2021-03-26 06:44] LABS: Alanine Aminotransferase 12 U/L (0-40); Albumin Level 3.3 g/dL (3.5-5.0); Alkaline Phosphatase 54 U/L (39-117); Anion Gap 28 (12-20); Aspartate Amino Transferase 11 U/L (5-37); Bilirubin Total 0.6 mg/dL (0.0-1.0); Blood Urea Nitrogen 201 mg/dL (9-16); Calcium 7.1 mg/dL (8.4-10.2); Carbon Dioxide 13 mmol/L (22-29); Chloride 99 mmol/L (96-108); Creatinine Clr Calc Pharmacy 4.7; Estimated Glomerular Filt Rate 3; Glucose Random 112 mg/dL (60-115); Potassium 4.7 mmol/L (3.3-5.1); Sodium 135 mmol/L (135-145)
--- NOTE | 2021-03-26 09:20 | P.PNCC_ITS ---
Subjective Subjective Date of Service: 03/26/21 Interval History: 70-year-old male with 6 months of symptoms consistent with the progressive renal failure culminating in uremia with marked hematuria severe bilateral hydronephrosis and just had an in the OR both Grijalva catheter and bilateral ureteral stent placement because of the obstructive uropathy and nephropathy currently with a slightly diminished hemoglobin again at 7.4 and and no respiratory difficulties no signs of fluid overload slightly impaired improved urinary volume output but still hematuria persists Electrolytes are okay Critical Care Time (minutes): 45 Physical Exam Vital Signs: Vital Signs: Last Vital Signs Temp 97.3 F 03/26/21 07:00 Pulse 77 03/26/21 09:00 Resp 12 03/26/21 09:00 BP 109/46 L 03/26/21 09:00 Pulse Ox 98 03/26/21 09:00 BMI result Body Mass Index 26.6 Vital signs is stable and neurologically intact mental status is spine No neck vein distension and good bilateral carotid upstrokes no rubs no gallops Chest clear no accessory muscle use Abdomen benign no organomegaly Warm well perfused with no acrocyanosis no significant edema Objective Data Labs CBC & Chem 7: 03/26/21 05:19 03/26/21 05:19 Labs: Laboratory Results - last 24 hr 03/25/21 03/25/21 03/25/21 08:32 11:34 12:14 WBC RBC Hgb Hct MCV MCH MCHC RDW Plt Count MPV Immature Gran % (Auto) Neut % (Auto) Lymph % (Auto) [place] % (Auto) Eos % (Auto) Baso % (Auto) Lymph # (Auto) [place] # (Auto) Eos # (Auto) Baso # (Auto) Abs Immat Gran (auto) Absolute Neuts (auto) Absolute Nucleated RBC Nucleated RBC % (auto) O2 Saturation 97.0 ABG pH at Pt Temp 7.32 L ABG pH (Temp Correct) 7.33 L ABG pCO2 at Pt Temp 19 L* ABG pCO2 (Temp Corrct 18 L* ABG pO2 at Pt Temp 124 H ABG pO2 (Temp Correct 119 H ABG HCO3 10 L ABG Base Excess (Actual) -13.4 VBG pH VBG pCO2 VBG pO2 VBG HCO3 VBG O2 Saturation VBG Base Excess Sodium 135 Potassium 5.3 H Chloride 100 Carbon Dioxide 11 L Anion Gap 29 H BUN 198 H Creatinine 17.17 H* Estim Creat Clear Calc 3.7 Estimated GFR 3 Random Glucose 144 H Calcium 7.3 L Total Bilirubin AST ALT Alkaline Phosphatase Total Protein Albumin Blood Type O Positive Antibody Screen NEGATIVE Crossmatch See Detail 03/25/21 03/25/21 03/25/21 12: 16:14 16:18 WBC RBC Hgb Hct MCV MCH MCHC RDW Plt Count MPV Immature Gran % (Auto) Neut % (Auto) Lymph % (Auto) [place] % (Auto) Eos % (Auto) Baso % (Auto) Lymph # (Auto) [place] # (Auto) Eos # (Auto) Baso # (Auto) Abs Immat Gran (auto) Absolute Neuts (auto) Absolute Nucleated RBC Nucleated RBC % (auto) O2 Saturation 99.0 ABG pH at Pt Temp 7.37 ABG pH (Temp Correct) 7.36 ABG pCO2 at Pt Temp 20 L* ABG pCO2 (Temp Corrct 20 L* ABG pO2 at Pt Temp 157 H ABG pO2 (Temp Correct 160 H ABG HCO3 12 L ABG Base Excess (Actual) -11.3 VBG pH 7.33 VBG pCO2 16 VBG pO2 195 VBG HCO3 9 L VBG O2 Saturation 99.0 VBG Base Excess -14.5 Sodium Cancelled Potassium Cancelled Chloride Cancelled Carbon Dioxide Cancelled Anion Gap Cancelled BUN Cancelled Creatinine Cancelled Estim Creat Clear Calc Cancelled Estimated GFR Cancelled Random Glucose Cancelled Calcium Cancelled Total Bilirubin AST ALT Alkaline Phosphatase Total Protein Albumin Blood Type Antibody Screen Crossmatch 03/25/21 03/26/21 03/26/21 16:18 05:19 05:19 WBC 9.6 RBC 2.41 L Hgb 7.4 L Hct 21.4 L MCV 88.8 MCH 30.7 MCHC 34.6 RDW 11.9 Plt Count 162 MPV 11.0 Immature Gran % (Auto) 0.5 H Neut % (Auto) 81.8 H Lymph % (Auto) 8.5 L [place] % (Auto) 7.8 Eos % (Auto) 1.3 Baso % (Auto) 0.1 Lymph # (Auto) 0.8 L [place] # (Auto) 0.8 Eos # (Auto) 0.1 Baso # (Auto) 0.0 Abs Immat Gran (auto) 0.05 H Absolute Neuts (auto) 7.9 Absolute Nucleated RBC 0.000 Nucleated RBC % (auto) 0.0 O2 Saturation ABG pH at Pt Temp ABG pH (Temp Correct) ABG pCO2 at Pt Temp ABG pCO2 (Temp Corrct ABG pO2 at Pt Temp ABG pO2 (Temp Correct ABG HCO3 ABG Base Excess (Actual) VBG pH VBG pCO2 VBG pO2 VBG HCO3 VBG O2 Saturation VBG Base Excess Sodium 134 L 135 Potassium 4.7 4.7 Chloride 100 99 Carbon Dioxide 12 L 13 L Anion Gap 27 H 28 H BUN 195 H 201 H Creatinine 16.65 H* 16.90 H* Estim Creat Clear Calc 3.8 4.7 Estimated GFR 3 3 Random Glucose 139 H 112 Calcium 7.1 L 7.1 L Total Bilirubin 0.6 AST 11 ALT 12 Alkaline Phosphatase 54 Total Protein 6.0 L Albumin 3.3 L Blood Type Antibody Screen Crossmatch Microbiology Microbiology Results: Microbiology 03/24/21 19:44 Urine Catheterized - Grijalva Catheter Urine Culture - Preliminary No growth to date. Progress Note: A&P Assessment and plan (1) Uremia syndrome: Status: Acute (2) Oliguria after procedure: Status: Acute (3) Hematuria: Status: Acute (4) Anemia: Status: Acute (5) Intractable nausea and vomiting: Status: Acute (6) Weight loss: Status: Acute (7) UTI (urinary tract infection): Status: Acute (8) Metabolic acidosis: Status: Acute (9) Acute renal failure: Status: Acute (10) Calculi, ureter: Status: Acute Assessment and Plan: Persistent uremia and awaiting blood gas for pH assessment and thus far no immediate indication for dialysis so we continue to watch expectantly and I will probably introduce a diet today and transfuse 1 unit for hemoglobin of 7.4 Quality Stroke Does the patient have a stroke diagnosis?: No VTE Prior VTE?: No VTE Risk Level:: Medical - moderate - high VTE Device Contraindication: Treatment Not Indicated VTE Drug Contraindication: N/A - Med Ordered
[2021-03-26 09:29] LABS: VBG Base Excess -8.1 mmol/L; VBG HCO3 14 mmol/L (22-26); VBG pCO2 22 mmHg; VBG pH 7.42 (7.32-7.43); VBG pO2 53 mmHg
[2021-03-26 09:34] LABS: Venous Blood Gas Refer to POC result
[2021-03-26] MEDS: Heparin Sodium,Porcine 5,000 UNIT/ML VIAL 5000 UNIT SUBCUT (10:54)
[2021-03-26] MEDS: Sodium Bicarbonate 8.4% 100 MEQ in Dextrose 5 % 900 ML 50 MEQ IV (13:19)
--- NOTE | 2021-03-26 15:42 | PM.PNNEP ---
Subjective Subjective Date of Service: 03/26/21 Interval history: Seen today. Events noted. All recent data reviewed. D/W [employer] and ICU Attending Physical Exam Vital Signs: Vital Signs: Last Vital Signs Temp 98.0 F 03/26/21 15:17 Pulse 86 03/26/21 15:17 Resp 14 03/26/21 15:17 BP 132/52 L 03/26/21 15:17 Pulse Ox 100 03/26/21 15:00 BMI result Body Mass Index 26.6 Const: General: comfortable Orientation/consciousness: patient oriented x3 Eyes: EOM: EOMs intact bilaterally Neck: Neck: Yes supple Resp: Auscultation: diminished lung sounds Cardio: Rate: regular rate GI: Palpation (GI): Soft to palpation Neuro: General: patient oriented x3 and moves all extremities Objective Data Labs CBC & Chem 7: 03/26/21 05:19 03/26/21 05:19 Labs: Laboratory Results - last 24 hr 03/25/21 03/25/21 03/25/21 08:32 16:14 16:18 WBC RBC Hgb Hct MCV MCH MCHC RDW Plt Count MPV Immature Gran % (Auto) Neut % (Auto) Lymph % (Auto) [place] % (Auto) Eos % (Auto) Baso % (Auto) Lymph # (Auto) [place] # (Auto) Eos # (Auto) Baso # (Auto) Abs Immat Gran (auto) Absolute Neuts (auto) Absolute Nucleated RBC Nucleated RBC % (auto) O2 Saturation 99.0 ABG pH at Pt Temp 7.37 ABG pH (Temp Correct) 7.36 ABG pCO2 at Pt Temp 20 L* ABG pCO2 (Temp Corrct 20 L* ABG pO2 at Pt Temp 157 H ABG pO2 (Temp Correct 160 H ABG HCO3 12 L ABG Base Excess (Actual) -11.3 VBG pH VBG pCO2 VBG pO2 VBG HCO3 VBG O2 Saturation VBG Base Excess Sodium Cancelled Potassium Cancelled Chloride Cancelled Carbon Dioxide Cancelled Anion Gap Cancelled BUN Cancelled Creatinine Cancelled Estim Creat Clear Calc Cancelled Estimated GFR Cancelled Random Glucose Cancelled Calcium Cancelled Total Bilirubin AST ALT Alkaline Phosphatase Total Protein Albumin Blood Type O Positive Antibody Screen NEGATIVE Crossmatch See Detail 12/17/21 12/18/21 12/18/21 16:18 05:19 05:19 WBC 9.6 RBC 2.41 L Hgb 7.4 L Hct 21.4 L MCV 88.8 MCH 30.7 MCHC 34.6 RDW 11.9 Plt Count 162 MPV 11.0 Immature Gran % (Auto) 0.5 H Neut % (Auto) 81.8 H Lymph % (Auto) 8.5 L [place] % (Auto) 7.8 Eos % (Auto) 1.3 Baso % (Auto) 0.1 Lymph # (Auto) 0.8 L [place] # (Auto) 0.8 Eos # (Auto) 0.1 Baso # (Auto) 0.0 Abs Immat Gran (auto) 0.05 H Absolute Neuts (auto) 7.9 Absolute Nucleated RBC 0.000 Nucleated RBC % (auto) 0.0 O2 Saturation ABG pH at Pt Temp ABG pH (Temp Correct) ABG pCO2 at Pt Temp ABG pCO2 (Temp Corrct ABG pO2 at Pt Temp ABG pO2 (Temp Correct ABG HCO3 ABG Base Excess (Actual) VBG pH VBG pCO2 VBG pO2 VBG HCO3 VBG O2 Saturation VBG Base Excess Sodium 134 L 135 Potassium 4.7 4.7 Chloride 100 99 Carbon Dioxide 12 L 13 L Anion Gap 27 H 28 H BUN 195 H 201 H Creatinine 16.65 H* 16.90 H* Estim Creat Clear Calc 3.8 4.7 Estimated GFR 3 3 Random Glucose 139 H 112 Calcium 7.1 L 7.1 L Total Bilirubin 0.6 AST 11 ALT 12 Alkaline Phosphatase 54 Total Protein 6.0 L Albumin 3.3 L Blood Type Antibody Screen Crossmatch 03/26/21 09:22 WBC RBC Hgb Hct MCV MCH MCHC RDW Plt Count MPV Immature Gran % (Auto) Neut % (Auto) Lymph % (Auto) [place] % (Auto) Eos % (Auto) Baso % (Auto) Lymph # (Auto) [place] # (Auto) Eos # (Auto) Baso # (Auto) Abs Immat Gran (auto) Absolute Neuts (auto) Absolute Nucleated RBC Nucleated RBC % (auto) O2 Saturation ABG pH at Pt Temp ABG pH (Temp Correct) ABG pCO2 at Pt Temp ABG pCO2 (Temp Corrct ABG pO2 at Pt Temp ABG pO2 (Temp Correct ABG HCO3 ABG Base Excess (Actual) VBG pH 7.42 VBG pCO2 22 VBG pO2 53 VBG HCO3 14 L VBG O2 Saturation 82.0 VBG Base Excess -8.1 Sodium Potassium Chloride Carbon Dioxide Anion Gap BUN Creatinine Estim Creat Clear Calc Estimated GFR Random Glucose Calcium Total Bilirubin AST ALT Alkaline Phosphatase Total Protein Albumin Blood Type Antibody Screen Crossmatch Microbiology Microbiology Results: Microbiology 03/24/21 19:44 Urine Catheterized - Grijalva Catheter Urine Culture - Final No growth. 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
[2021-03-26] MEDS: ondansetron HCL 4 MG/2 ML VIAL IVPUSH (17:54)
--- NOTE | 2021-03-26 17:59 | HO.POSTANES ---
Post Anesthesia Evaluation Post Anesthesia Evaluation Vital Signs: Vital Signs Temp Pulse Resp BP Pulse Ox 03/26/21 17:00 98 14 121/70 96 03/26/21 16:00 86 16 136/81 100 03/26/21 15:17 98.0 F 86 14 132/52 L 03/26/21 15:01 97.5 F 91 14 118/67 03/26/21 15:00 97.5 F 91 14 118/67 100 03/26/21 14:06 100 03/26/21 14:00 89 16 100/67 98 03/26/21 13:40 98.1 F 94 16 94/69 03/26/21 13:23 97.0 F 93 15 94/67 03/26/21 13:00 102 H 11 L 96/60 100 03/26/21 12:00 81 17 105/70 100 03/26/21 11:00 88 15 107/74 100 03/26/21 10:00 87 14 115/64 81 L 03/26/21 09:00 77 12 109/46 L 98 03/26/21 08:00 95 20 104/63 100 03/26/21 07:00 97.3 F 83 14 102/57 L 100 03/26/21 06:00 84 16 105/48 L 99 Anesthesia: Monitored and TIVA Mental Status: Awake Pain Control: Satisfactory Nausea/Vomiting: None Hydration: Adequate Anesthesia-Related Issues: No Anes. Related Issues
--- NOTE | 2021-03-26 18:00 | PC.NURSE ---
Addendum entered by Katia Aragon RN 03/26/21 18:01: LUTZ OUTPUT FROM [id number] = 900 ML, BLOOD TINGED. MD AND RENAL AWARE. Original Note: 1 RBC TRANSFUSED, TOLERATED WELL. PT TRIED EATING TODAY. DID NOT TOLERATE. FEELING NAUSEOUS. PRN ZOFRAN 4MG IVP ADMINISTERED - EFFECTS PENDING.
[2021-03-27] VITALS (13 sets, daily range): BP systolic 105–150; BP diastolic 51–79; PULSE 15–100; RESP 12–19; TEMP 36.4–37.5; O2SAT 90–100; BMI 26.4
[2021-03-27 01:13] LABS: Anion Gap 29 (12-20); Blood Urea Nitrogen 194 mg/dL (9-16); Calcium 6.9 mg/dL (8.4-10.2); Carbon Dioxide 15 mmol/L (22-29); Chloride 98 mmol/L (96-108); Creatinine Clr Calc Pharmacy 4.7; Estimated Glomerular Filt Rate 3; Glucose Random 124 mg/dL (60-115); Potassium 4.7 mmol/L (3.3-5.1); Sodium 137 mmol/L (135-145)
[2021-03-27 06:22] LABS: MANUAL DIFF FLAG NO
[2021-03-27 06:35] LABS: Basophils Percent Auto 0.2 % (0-2); Eosinophils Absolute Auto 0.2 X10*3/uL (0.0-0.4); Eosinophils Percent Auto 2.4 % (0-4); Hematocrit 22.5 % (42.0-52.0); Hemoglobin 7.5 g/dl (14.0-18.0); Imm Gran Abs Auto 0.06 X10*3/uL (0.00-0.03); Imm Gran Pct Auto 0.7 % (0.0-0.4); Lymphocytes Absolute Auto 0.9 X10*3/uL (1.2-4.9); Lymphocytes Percent Auto 9.8 % (20-40); Mean Corpuscular HGB Conc 33.3 g/dl (31.0-36.0); Mean Corpuscular Hemoglobin 29.9 pg (27.0-33.0); Mean Corpuscular Volume 89.6 fL (80.0-98.0); Mean Platelet Volume 10.7 fL (9.4-12.4); Monocytes Absolute Auto 0.8 X10*3/uL (0.1-1.2); Monocytes Percent Auto 8.4 % (2-11); Neutrophils Absolute Auto 7.2 x10*3/uL (2.0-8.3); Neutrophils Percent Auto 78.5 % (45-73); Platelet Count 146 X10*3/uL (160-400); Red Blood Count 2.51 X10*6/uL (4.60-5.80); Red Cell Distribution Width 12.7 % (11.0-16.0); White Blood Count 9.2 X10*3/uL (4.8-10.8)
[2021-03-27 07:01] LABS: Alanine Aminotransferase 11 U/L (0-40); Albumin Level 3.2 g/dL (3.5-5.0); Alkaline Phosphatase 54 U/L (39-117); Anion Gap 28 (12-20); Aspartate Amino Transferase 15 U/L (5-37); Bilirubin Total 0.8 mg/dL (0.0-1.0); Calcium 6.7 mg/dL (8.4-10.2); Carbon Dioxide 15 mmol/L (22-29); Chloride 98 mmol/L (96-108); Creatinine Clr Calc Pharmacy 4.7; Estimated Glomerular Filt Rate 3; Glucose Random 114 mg/dL (60-115); Phosphorus 12.5 mg/dL (2.7-4.5); Potassium 4.4 mmol/L (3.3-5.1); Sodium 137 mmol/L (135-145)
--- NOTE | 2021-03-27 07:05 | P.PNCC_ITS ---
Subjective Subjective Date of Service: 03/27/21 Interval History: 70-year-old male with is 6 months of progressive constitutional complaints including a 60 lb weight loss nausea loss of appetite etc. came in clearly in renal failure with significant hematuria creatinine was 17 and BUN was nearly 200 had bilateral hydronephrosis deemed to a been due to prostatic hypertrophy and because of the dilatation of the bladder so Grijalva catheter was placed by Urology bilateral ureteral stenting to place and for 2 days there was no postobstructive diuresis just continued hematuria a nd oliguria overnight we had a 2 L diuresis and the blood gases improving the negative base excess representing are bicarb deficit is greatly improved and the so I think that we are now seeing some resolution of the renal insufficiency and we might just of avoided the need for dialysis because we held off based on a lack of metabolic and volume overload indications yesterday and on this morning's re-evaluation he might be improving on his own with relief of the obstruction Critical Care Time (minutes): 30 Physical Exam Vital Signs: Vital Signs: Last Vital Signs Temp 97.9 F 03/27/21 00:00 Pulse 82 03/27/21 06:00 Resp 15 03/27/21 06:00 BP 112/53 L 03/27/21 06:00 Pulse Ox 99 03/27/21 06:00 BMI result Body Mass Index 26.4 awake alert nonfocal neurologically good bilateral carotid upstrokes no gallops on cardiac exam lungs are clear with no adventitious stuart nds abdomen soft no organomegaly skin is intact no significant edema Objective Data Labs CBC & Chem 7: 03/27/21 05:48 03/27/21 05:48 Labs: Laboratory Results - last 24 hr 03/25/21 03/26/21 03/27/21 08:32 09:22 00:31 WBC RBC Hgb Hct MCV MCH MCHC RDW Plt Count MPV Immature Gran % (Auto) Neut % (Auto) Lymph % (Auto) [place] % (Auto) Eos % (Auto) Baso % (Auto) Lymph # (Auto) [place] # (Auto) Eos # (Auto) Baso # (Auto) Abs Immat Gran (auto) Absolute Neuts (auto) Absolute Nucleated RBC Nucleated RBC % (auto) VBG pH 7.42 VBG pCO2 22 VBG pO2 53 VBG HCO3 14 L VBG O2 Saturation 82.0 VBG Base Excess -8.1 Sodium 137 Potassium 4.7 Chloride 98 Carbon Dioxide 15 L Anion Gap 29 H BUN 194 H Creatinine 16.65 H* Estim Creat Clear Calc 4.7 Estimated GFR 3 Random Glucose 124 H Calcium 6.9 L Phosphorus Total Bilirubin AST ALT Alkaline Phosphatase Total Protein Albumin Blood Type O Positive Antibody Screen NEGATIVE Crossmatch See Detail 03/27/21 03/27/21 05:48 05:48 WBC 9.2 RBC 2.51 L Hgb 7.5 L Hct 22.5 L MCV 89.6 MCH 29.9 MCHC 33.3 RDW 12.7 Plt Count 146 L MPV 10.7 Immature Gran % (Auto) 0.7 H Neut % (Auto) 78.5 H Lymph % (Auto) 9.8 L [place] % (Auto) 8.4 Eos % (Auto) 2.4 Baso % (Auto) 0.2 Lymph # (Auto) 0.9 L [place] # (Auto) 0.8 Eos # (Auto) 0.2 Baso # (Auto) 0.0 Abs Immat Gran (auto) 0.06 H Absolute Neuts (auto) 7.2 Absolute Nucleated RBC 0.000 Nucleated RBC % (auto) 0.0 VBG pH VBG pCO2 VBG pO2 VBG HCO3 VBG O2 Saturation VBG Base Excess Sodium 137 Potassium 4.4 Chloride 98 Carbon Dioxide 15 L Anion Gap 28 H BUN Creatinine 16.72 H* Estim Creat Clear Calc 4.7 Estimated GFR 3 Random Glucose 114 Calcium 6.7 L Phosphorus 12.5 H Total Bilirubin 0.8 AST 15 ALT 11 Alkaline Phosphatase 54 Total Protein 6.0 L Albumin 3.2 L Blood Type Antibody Screen Crossmatch Microbiology Microbiology Results: Microbiology 03/24/21 19:44 Urine Catheterized - Grijalva Catheter Urine Culture - Final No growth. Progress Note: A&P Assessment and plan (1) Uremia syndrome: Status: Acute (2) Oliguria after procedure: Status: Acute (3) Hematuria: Status: Acute (4) Anemia: Status: Acute (5) Intractable nausea and vomiting: Status: Acute (6) Weight loss: Status: Acute (7) UTI (urinary tract infection): Status: Acute (8) Metabolic acidosis: Status: Acute (9) Acute renal failure: Status: Acute (10) Calculi, ureter: Status: Acute Assessment and Plan: so the morning creatinine came back only at 16.7 small change but are serum bicarb is definitely improving now up to 15 metabolically looks fine clearly no fluid overload and as the oliguria begins to relieve I think it is the 1st sign of further resolution of renal function and we do not know yet to what degree he will correct but it might be enough to avoid either a PermCath or fistula placement but right now it we do not have to do any emergent placement of a short-term dialysis catheter so he can be transfer to the floor for further observation Quality Stroke Does the patient have a stroke diagnosis?: No VTE Prior VTE?: No VTE Risk Level:: Medical - moderate - high VTE Device Contraindication: Treatment Not Indicated VTE Drug Contraindication: N/A - Med Ordered
[2021-03-27 07:15] LABS: Blood Urea Nitrogen 193 mg/dL (9-16)
--- NOTE | 2021-03-27 08:38 | P.PNIM_ITS ---
Subjective Subjective Date of Service: 03/27/21 Interval History: david on ckd Review of Systems Patient producing urine denies any chest pain or abdominal pain or fever chills or cough or phlegm. Physical Exam Vital Signs: Vital Signs: Last Vital Signs Temp 99.5 F 03/27/21 07:58 Pulse 80 03/27/21 07:58 Resp 14 03/27/21 07:58 BP 128/59 L 03/27/21 07:58 Pulse Ox 97 03/27/21 07:58 BMI result Body Mass Index 26.4 Appearance: Alert.? Oriented X3.? not in distress.? Eyes: Pupils equal, round and reactive to light.? Sclera nonicteric.? ENT: Pharynx normal.? Moist mucous membranes. cvs: rrr, [id number] , no murmur res: clear to auscultation ,no rhonchii or wheezing abd: no rebound or guarding ,nt, bs present. ext pulses present , no cyanosis . neuro: axo3 , nonfocal. Objective Data Active Medications Acetaminophen (Acetaminophen 325 Mg Tablet) 650 mg PO Q6H PRN PRN Reason: Pain, Mild (Pain Scale 1-3) Docusate Sodium (Docusate Sodium 100 Mg Capsule) 100 mg PO DAILY PRN PRN Reason: Constipation Sodium Bicarbonate 100 meq/ (Dextrose) 1,000 mls @ 50 mls/hr IV .Q20H [facility] Last Admin: 03/26/21 13:19 Dose: 50 mls/hr Documented by: ROMERO Ondansetron HCl (Ondansetron Hcl 4 Mg/2 Ml Vial) 4 mg IVPUSH Q8H PRN PRN Reason: Nausea and Vomiting Last Admin: 03/26/21 17:54 Dose: 4 mg Documented by: ROMERO Sodium Chloride (0.9 % Sodium Chloride Flush 3 Ml Syringe) 3 ml IVFLUSH QSHIFT [facility] Last Admin: 03/27/21 08:03 Dose: Not Given Documented by: ROMERO Non-Admin Reason: IV Running Labs CBC & Chem 7: 03/27/21 05:48 03/27/21 05:48 Labs: Laboratory Results - last 24 hr 03/25/21 03/26/21 03/27/21 08:32 09:22 00:31 MCV MCH MCHC RDW Plt Count MPV Immature Gran % (Auto) Neut % (Auto) Lymph % (Auto) [place] % (Auto) Eos % (Auto) Baso % (Auto) Lymph # (Auto) [place] # (Auto) Eos # (Auto) Baso # (Auto) Abs Immat Gran (auto) Absolute Neuts (auto) Absolute Nucleated RBC Nucleated RBC % (auto) VBG pH 7.42 VBG pCO2 22 VBG pO2 53 VBG HCO3 14 L VBG O2 Saturation 82.0 VBG Base Excess -8.1 Anion Gap 29 H Estim Creat Clear Calc 4.7 Estimated GFR 3 Random Glucose 124 H Calcium 6.9 L Phosphorus Total Bilirubin AST ALT Alkaline Phosphatase Total Protein Albumin Blood Type O Positive Antibody Screen NEGATIVE Crossmatch See Detail 03/27/21 03/27/21 05:48 05:48 MCV 89.6 MCH 29.9 MCHC 33.3 RDW 12.7 Plt Count 146 L MPV 10.7 Immature Gran % (Auto) 0.7 H Neut % (Auto) 78.5 H Lymph % (Auto) 9.8 L [place] % (Auto) 8.4 Eos % (Auto) 2.4 Baso % (Auto) 0.2 Lymph # (Auto) 0.9 L [place] # (Auto) 0.8 Eos # (Auto) 0.2 Baso # (Auto) 0.0 Abs Immat Gran (auto) 0.06 H Absolute Neuts (auto) 7.2 Absolute Nucleated RBC 0.000 Nucleated RBC % (auto) 0.0 VBG pH VBG pCO2 VBG pO2 VBG HCO3 VBG O2 Saturation VBG Base Excess Anion Gap 28 H Estim Creat Clear Calc 4.7 Estimated GFR 3 Random Glucose 114 Calcium 6.7 L Phosphorus 12.5 H Total Bilirubin 0.8 AST 15 ALT 11 Alkaline Phosphatase 54 Total Protein 6.0 L Albumin 3.2 L Blood Type Antibody Screen Crossmatch Microbiology Microbiology Results: Microbiology 03/24/21 19:44 Urine Culture - Final Urine Catheterized - Grijalva Catheter No growth. Assessment and Plan (1) Hematuria: Status: Acute (2) Acute renal failure: Status: Acute (3) Metabolic acidosis: Status: Acute Assessment and Plan: 70 yo M who reports no past medical history presents to the hospital with intractable nausea vomiting, weight loss, found to have severe kidney failure 1.admitted with:DAVID- most likely postobstructive secondary to either enlarged prostate or or mass although no bladder mass seen on CT abdomen pelvis and Severe metabolic acidosis-most likely driven by uremia,? mild hyperkalemia. Patient went to ICU for above: Received IV bicarb drip, also seen by Urology -bilateral hydronephrosis deemed to a been due to prostatic hypertrophy and because of the dilatation of the bladder so Grijalva catheter was placed by Urology bilateral ureteral stenting to place . patient is producing urine but creatinine is still in 16.7 range, bicarb imp roved to 15. mental status seems seems fine, denies any nausea vomiting or any new symptoms. Continue to monitor- patient will hemodialysis catheter in the morning as per Nephro, also D VV AP ordered, Renvela added 2 weight loss - most likely secondary to poor p.o. intake as well as nausea vomiting - will start him with regular diet as well as ensure supplement 3. intractable nausea vomiting seems resolved ?on Zofran p.r.n. - supportive measures diet started DVT prophylaxis:? Heparin subQ Quality Stroke Does the patient have a stroke diagnosis?: No VTE Prior VTE?: No VTE Risk Level:: Medical - moderate - high VTE Device Contraindication: Treatment Not Indicated VTE Drug Contraindication: N/A - Med Ordered
[2021-03-27] MEDS: Sodium Bicarbonate 8.4% 100 MEQ in Dextrose 5 % 900 ML 50 MEQ IV (09:18)
--- NOTE | 2021-03-27 10:23 | PM.PNNEP ---
Subjective Subjective Date of Service: 03/27/21 Interval history: Seen AM. Events noted; All recent data reviewed Physical Exam Vital Signs: Vital Signs: Last Vital Signs Temp 99.5 F 03/27/21 07:58 Pulse 80 03/27/21 07:58 Resp 14 03/27/21 07:58 BP 128/59 L 03/27/21 07:58 Pulse Ox 97 03/27/21 07:58 BMI result Body Mass Index 26.4 Const: General: comfortable Eyes: EOM: EOMs intact bilaterally Neck: Neck: Yes supple Resp: Auscultation: diminished lung sounds Cardio: Rate: regular rate GI: Palpation (GI): Soft to palpation Neuro: General: moves all extremities Objective Data Labs CBC & Chem 7: 03/27/21 05:48 03/27/21 05:48 Labs: Laboratory Results - last 24 hr 03/25/21 03/27/21 03/27/21 08:32 00:31 05:48 WBC 9.2 RBC 2.51 L Hgb 7.5 L Hct 22.5 L MCV 89.6 MCH 29.9 MCHC 33.3 RDW 12.7 Plt Count 146 L MPV 10.7 Immature Gran % (Auto) 0.7 H Neut % (Auto) 78.5 H Lymph % (Auto) 9.8 L [place] % (Auto) 8.4 Eos % (Auto) 2.4 Baso % (Auto) 0.2 Lymph # (Auto) 0.9 L [place] # (Auto) 0.8 Eos # (Auto) 0.2 Baso # (Auto) 0.0 Abs Immat Gran (auto) 0.06 H Absolute Neuts (auto) 7.2 Absolute Nucleated RBC 0.000 Nucleated RBC % (auto) 0.0 Sodium 137 Potassium 4.7 Chloride 98 Carbon Dioxide 15 L Anion Gap 29 H BUN 194 H Creatinine 16.65 H* Estim Creat Clear Calc 4.7 Estimated GFR 3 Random Glucose 124 H Calcium 6.9 L Phosphorus Total Bilirubin AST ALT Alkaline Phosphatase Total Protein Albumin Blood Type O Positive Antibody Screen NEGATIVE Crossmatch See Detail 03/27/21 05:48 WBC RBC Hgb Hct MCV MCH MCHC RDW Plt Count MPV Immature Gran % (Auto) Neut % (Auto) Lymph % (Auto) [place] % (Auto) Eos % (Auto) Baso % (Auto) Lymph # (Auto) [place] # (Auto) Eos # (Auto) Baso # (Auto) Abs Immat Gran (auto) Absolute Neuts (auto) Absolute Nucleated RBC Nucleated RBC % (auto) Sodium 137 Potassium 4.4 Chloride 98 Carbon Dioxide 15 L Anion Gap 28 H BUN 193 H Creatinine 16.72 H* Estim Creat Clear Calc 4.7 Estimated GFR 3 Random Glucose 114 Calcium 6.7 L Phosphorus 12.5 H Total Bilirubin 0.8 AST 15 ALT 11 Alkaline Phosphatase 54 Total Protein 6.0 L Albumin 3.2 L Blood Type Antibody Screen Crossmatch Microbiology Microbiology Results: Microbiology 03/24/21 19:44 Urine Catheterized - Grijalva Catheter Urine Culture - Final No growth. Procedures Date of Service Date of Service: 03/27/21 Assessment & Plan Assessment and plan (1) Acute renal failure: Status: Acute Assessment and Plan: DAVID due to obstructive uropathy Likely has tubular injury as well( May be ESRD) Possible that he has progressed to ESRD from chronic obstruction On? bicarb drip for metabolic acidosis S/P B/L JJ stent with no significant improvement Need HDs; Permcath Sunday by IR DDAVP 25 mcg Mon AM pre permcath to prevent uremic bleeding Phos high. Start Renvela 800 mg tid with meals; PTH pending Shall closely follow up Time Spent With Patient Time: Total time spent is greater than 50% in coordination of care (as documented) at patient's floor/unit and/or counseling patient: Progress Note: Quality Stroke Does the patient have a stroke diagnosis?: No
[2021-03-27 11:09] LABS: Urine Cytology See Pathology rpt
[2021-03-27] MEDS: Sevelamer Carbonate Tablet 800 MG TABLET PO ×2 (13:20→16:54)
--- NOTE | 2021-03-27 19:39 | PC.NURSE ---
TOTAL URINE OUTPUT FROM [id number] = 1030 ML, PUNCH IN COLOR. MD AND RENAL AWARE. RN TO RN REPORT AND TRANSFER TO MED SURG.
[2021-03-28] VITALS (8 sets, daily range): BP systolic 102–144; BP diastolic 56–72; PULSE 80–91; RESP 17–20; TEMP 35.9–36.9; O2SAT 99–100; BMI 26.2
[2021-03-28 04:57] LABS: Hematocrit 22.7 % (42.0-52.0); Hemoglobin 7.6 g/dl (14.0-18.0)
[2021-03-28 05:06] LABS: Anion Gap 27 (12-20); Calcium 6.3 mg/dL (8.4-10.2); Carbon Dioxide 19 mmol/L (22-29); Chloride 95 mmol/L (96-108); Creatinine Clr Calc Pharmacy 4.7; Estimated Glomerular Filt Rate 3; Glucose Random 123 mg/dL (60-115); Sodium 137 mmol/L (135-145)
[2021-03-28 05:22] LABS: Blood Urea Nitrogen 189 mg/dL (9-16)
--- NOTE | 2021-03-28 06:19 | PC.NURSE ---
Patient with stat order for blood with only a 22 guage IV. Just obtained a 20 guage IV for transfusion. Xray currenly in room with patient. awiting availability to get unit.
[2021-03-28] MEDS: Sodium Bicarbonate 8.4% 100 MEQ in Dextrose 5 % 900 ML 50 MEQ IV (06:40)
[2021-03-28] MEDS: Desmopressin Acetate 20 MCG in 0.9 % Sodium Chloride 50 ML 100 MCG IV (07:08)
--- NOTE | 2021-03-28 08:04 | HO.PM.IMPN ---
Subjective Subjective Date of Service: 03/28/21 Interval History: david on ckd Review of Systems Patient producing urine still has mild nausea Denies any new complaint of chest pain or shortness of breath or abdominal pain or fever or chills or vomiting Denies any cough Denies any weakness or numbness. Physical Exam Vital Signs: Vital Signs: Last Vital Signs Temp 97.7 F 03/28/21 07:49 Pulse 85 03/28/21 07:49 Resp 17 03/28/21 07:49 BP 134/72 03/28/21 07:49 Pulse Ox 100 03/28/21 07:49 BMI result Body Mass Index 26.2 Appearance: Alert.? Oriented X3.? not in distress.? Eyes: Pupils equal, round and reactive to light.? Sclera nonicteric.? ENT: Pharynx normal.? Moist mucous membranes. cvs: rrr, [id number] , no murmur res: clear to auscultation ,no rhonchii or wheezing abd: no rebound or guarding ,nt, bs present. ext pulses present , no cyanosis . neuro: axo3 , nonfocal. Objective Data Active Medications Docusate Sodium (Docusate Sodium 100 Mg Capsule) 100 mg PO DAILY PRN PRN Reason: Constipation Sodium Bicarbonate 100 meq/ (Dextrose) 1,000 mls @ 50 mls/hr IV .Q20H [facility] Last Admin: 03/28/21 06:40 Dose: 50 mls/hr Documented by: JULITO Sevelamer Carbonate (Sevelamer Carbonate Tablet 800 Mg Tablet) 800 mg PO TIDWM [facility] Last Admin: 03/27/21 16:54 Dose: 800 mg Documented by: ROMERO Sodium Chloride (0.9 % Sodium Chloride Flush 3 Ml Syringe) 3 ml IVFLUSH QSHIFT [facility] Last Admin: 03/28/21 07:15 Dose: Not Given Documented by: KARYN Non-Admin Reason: IV Running Labs CBC & Chem 7: 03/28/21 04:22 03/28/21 04:22 Labs: Laboratory Results - last 24 hr 03/28/21 04:22 Anion Gap 27 H Estim Creat Clear Calc 4.7 Estimated GFR 3 Random Glucose 123 H Calcium 6.3 L Assessment and Plan (1) Anemia: Status: Acute (2) UTI (urinary tract infection): Status: Acute (3) Acute renal failure: Status: Acute Assessment and Plan: 70 yo M who reports no past medical history presents to the hospital with intractable nausea vomiting, weight loss, found to have severe kidney failure 1.admitted with:DAVID- most likely postobstructive secondary to either enlarged prostate or or mass although no bladder mass seen on CT abdomen pelvis and Severe metabolic acidosis-most likely driven by uremia,? mild hyperkalemia. ? Patient went to ICU for above:? Received IV bicarb drip, also seen by Urology -bilateral hydronephrosis deemed to a been due to prostatic hypertrophy and because of the dilatation of the bladder so Grijalva catheter was placed by Urology bilateral ureteral stenting to place . ?patient is producing urine but creatinine is still in 16.7 range, bicarb improved to 15. ?mental status seems seems fine, denies any nausea vomiting or any new symptoms. ? Continue to monitor- patient will hemodialysis catheter , also D VV AP ordered, Lala added has hematura -pinkish urine ( seems has this since admission)-continue to moniter urology followin 2 weight loss - most likely secondary to poor p.o. intake as well as nausea vomiting - will start him with regular diet as well as ensure supplement 3. intractable nausea vomiting seems resolved ?on Zofran p.r.n. - supportive measures diet started 4. anemia /normocytic: iron studies -probable aocd. b12 and folate seems fine h/h 7.6 /22.7( running currently between 7.5-8 range). DVT prophylaxis:? scd , going for Hd catheter placement Quality Stroke Does the patient have a stroke diagnosis?: No VTE Prior VTE?: No VTE Risk Level:: Medical - moderate - high VTE Device Contraindication: Treatment Not Indicated VTE Drug Contraindication: N/A - Med Ordered
[2021-03-28 09:02] LABS: INTERNATIONAL NORM RATIO 1.2 (0.9-1.1)
[2021-03-28 09:05] LABS: Partial Thromboplastin Time 29.3 SEC (24.1-38.0)
--- NOTE | 2021-03-28 10:55 | PM.PNNEP ---
Subjective Subjective Date of Service: 03/28/21 Principal diagnosis: DAVID Interval history: Seen and examiend, events noted Pcath scheduled fot today Poor PO appettite Physical Exam Vital Signs: Vital Signs: Last Vital Signs Temp 97.7 F 03/28/21 07:49 Pulse 85 03/28/21 07:49 Resp 17 03/28/21 07:49 BP 134/72 03/28/21 07:49 Pulse Ox 100 03/28/21 07:49 BMI result Body Mass Index 26.2 Const: General: comfortable and well developed Orientation/consciousness: patient oriented x3 Eyes: EOM: EOMs intact bilaterally Neck: Neck: Yes supple Resp: Auscultation: diminished lung sounds Cardio: Rate: regular rate GI: Palpation (GI): Soft to palpation Neuro: General: patient oriented x3 and moves all extremities Objective Data Labs CBC & Chem 7: 03/28/21 04:22 03/28/21 04:22 Labs: Laboratory Results - last 24 hr 03/28/21 03/28/21 03/28/21 04:22 04:22 08:17 Hgb 7.6 L Hct 22.7 L PT 14.0 H INR 1.2 H APTT 29.3 Sodium 137 Potassium 4.0 Chloride 95 L Carbon Dioxide 19 L Anion Gap 27 H BUN 189 H Creatinine 16.70 H* Estim Creat Clear Calc 4.7 Estimated GFR 3 Random Glucose 123 H Calcium 6.3 L Microbiology Microbiology Results: Microbiology 03/24/21 19:44 Urine Catheterized - Resendez Catheter Urine Culture - Final No growth. Procedures Date of Service Date of Service: 03/28/21 Assessment & Plan Assessment and plan (1) Acute renal failure: Start date: 03/28/21 Start time: 10:59 Status: Acute Assessment and Plan: 1. 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 Anemia: epo def 3. MBD with severe hyperphos; PTH pending 4. MOSS: urol w/u as noted; cont with resendez and GH REC: Pcath and start HD either today vs tomorrow depending on timing of Path placement; phos binders as noted; epo as ordered; protect LUE for future AVF; needs outpt HD spot whih we are working on Will follow with team Time Spent With Patient Time: Total time spent is greater than 50% in coordination of care (as documented) at patient's floor/unit and/or counseling patient: Progress Note: Quality Stroke Does the patient have a stroke diagnosis?: No
[2021-03-28 11:01] LABS: Creatinine Urine 57.56 mg/dL
--- NOTE | 2021-03-28 13:11 | P.PNUR_ITS ---
Subjective Subjective Date of Service: 03/28/21 Interval history: Initial presentation with deconditioning and bilateral hydroureteronephrosis with elevated creatinine Underwent bilateral stent placement with Grijalva catheter on Sunday Has had minimal change to creatinine Nephrology a planning emergent access for dialysis Cytology has been ordered for his bladder is this had a number of superficial mucosal changes at time cystoscopy Physical Exam Vital Signs: Vital Signs: Last Vital Signs Temp 97.8 F 03/28/21 12:12 Pulse 81 03/28/21 12:12 Resp 18 03/28/21 12:12 BP 112/56 L 03/28/21 12:12 Pulse Ox 99 03/28/21 12:12 BMI result Body Mass Index 26.2 Const: General: cooperative, healthy appearing, comfortable and no acute distress Orientation/consciousness: patient oriented x3 HENMT: Face and sinus: Yes normal facial exam Mouth: moist mucous membranes Neck: Neck: Yes normal visual inspection, Yes full ROM and Yes trachea midline Chest: Chest palpation & inspection: normal inspection of the chest Resp: Effort & Inspection: normal respiratory effort, able to speak in complete sentences and no respiratory distress GI: Inspection: Yes normal to inspection Back/Spine/Pelvis: Cervical Spine: normal cervical lordosis Thoracic/Lumbar Spine: thoracic and lumbar spine normal to inspection Skin: General skin exam: no rashes or lesions noted Neuro: General: patient oriented x3, tone normal and moves all extremities Extrem: General: Yes normal to inspection and Yes capillary refill normal Urology Results Labs CBC & Chem 7: 03/28/21 04:22 03/28/21 04:22 Labs: Laboratory Results - last 24 hr 03/28/21 03/28/21 03/28/21 04:22 04:22 08:17 Hgb 7.6 L Hct 22.7 L PT 14.0 H INR 1.2 H APTT 29.3 Sodium 137 Potassium 4.0 Chloride 95 L Carbon Dioxide 19 L Anion Gap 27 H BUN 189 H Creatinine 16.70 H* Estim Creat Clear Calc 4.7 Estimated GFR 3 Random Glucose 123 H Calcium 6.3 L Ur Random Sodium Urine Creatinine 03/28/21 10:08 Hgb Hct PT INR APTT Sodium Potassium Chloride Carbon Dioxide Anion Gap BUN Creatinine Estim Creat Clear Calc Estimated GFR Random Glucose Calcium Ur Random Sodium 62.0 Urine Creatinine 57.56 Progress Note: A&P Assessment and plan (1) Hematuria: Status: Acute (2) Bilateral hydronephrosis: Status: Acute (3) Acute renal failure: Status: Acute (4) Urinary retention with incomplete bladder emptying: Status: Acute Assessment and Plan: Bilateral stenting perform For Grijalva catheter in place Current management per Nephrology Urinary sodium and creatinine ordered Urine cytology pending Fall Risk Details Current Medications: Current Medications Docusate Sodium (Docusate Sodium 100 Mg Capsule) 100 mg PO DAILY PRN PRN Reason: Constipation Sodium Bicarbonate 100 meq/ (Dextrose) 1,000 mls @ 50 mls/hr IV .Q20H [facility] Last Admin: 03/28/21 06:40 Dose: 50 mls/hr Documented by: Sevelamer Carbonate (Sevelamer Carbonate Tablet 800 Mg Tablet) 800 mg PO TIDWM [facility] Last Admin: 03/28/21 10:20 Dose: Not Given Documented by: Sodium Chloride (0.9 % Sodium Chloride Flush 3 Ml Syringe) 3 ml IVFLUSH QSHIFT [facility] Last Admin: 03/28/21 07:15 Dose: Not Given Documented by: Time Spent With Patient Time: Total time spent is greater than 50% in coordination of care (as documented) at patient's floor/unit and/or counseling patient: Time with patient: less than 15 minutes No Severe Sepsis: No Severe Sepsis Progress Note: Quality Stroke Does the patient have a stroke diagnosis?: No
[2021-03-28 14:01] LABS: Calcium (PTHI) 6.6 mg/dL (8.6-10.3); PTHI 403 pg/mL (14-64)
--- NOTE | 2021-03-28 14:21 | MHC.CM.PN ---
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 PER DOXUMENTATION ADMITTED WITH (ANEMIA UTI ACUTE RENAL FAILURE B-HYDROONEPHROSIS AND SEC, PROSTRATE HYPERTROPHY HE IS PRODUCING SOME URIN BUT HIS CREATININE IS STILL ELEVATED . FOLR DIALYSIS CATH TODAY AND START HEMO DIALYSIS DISCHARGE PLAN LISTED ON ADMISSION SELF PAY , HAS BEEN REFERRRED TO [facility] [place] FINANCIAL T/C TO [place] IN FINANCIAL SHE IS CHECKING TO SEE IF HE HAS MEDICARE (PATIENTTHINKS HE HAS MEDICARE ) DISCHARGE PLAN TO BE FURTHER DETERMINED, WILL FOLLOW WITH HOSPITALIST , RENAL AND UROLOGY AND FINANCIAL HE WILL NEED PCP TO BE ASSIGHNED, AND COMPLETE HEALTH CARE PROXY , ALSO LOOK INTO WHETHER HE WAS VACINATED
[2021-03-28] MEDS: Lidocaine HCl 1 % MPF 5 ML VIAL SUBCUT (16:12)
--- NOTE | 2021-03-28 16:20 | MHC.CLN ---
NUTRITION NUTRITION CONSULT FOR 60# WEIGHT LOSS. SIGNIFICANT WEIGHT LOSS -22.1% X 7 MONTHS. PATIENT WITH NAUSEA AND VOMITING WITH ACUTE RENAL FAILURE. CURRENTLY NPO. SCHEDULED FOR PERMACATH PLACEMENT AND HEMODIALYSIS TO FOLLOW 03/28 OR 03/29. RECOMMEND THERAPEUTIC DIET WITH HEMODIALYSIS: 2 GRAM SODIUM, LOW POTASSIUM, LOW PHOSPHORUS.
--- NOTE | 2021-03-28 17:12 | HO.RADPN ---
RADIOLOGY Narrative Narrative: RIJ 14.5 fr 23 cm length Palindrome permacath placed. Tip at cavoatrial junction.
[2021-03-28] MEDS: Sevelamer Carbonate Tablet 800 MG TABLET PO (17:39)
[2021-03-29] VITALS: BP 139/67; PULSE 80; RESP 17; TEMP 36.7; O2SAT 99
[2021-03-29 04:00] VITALS: BP 117/56; PULSE 78; RESP 17; TEMP 37; O2SAT 99
[2021-03-29 06:08] LABS: Hematocrit 22.4 % (42.0-52.0); Hemoglobin 7.6 g/dl (14.0-18.0); Mean Corpuscular HGB Conc 33.9 g/dl (31.0-36.0); Mean Corpuscular Hemoglobin 30.3 pg (27.0-33.0); Mean Corpuscular Volume 89.2 fL (80.0-98.0); Mean Platelet Volume 10.8 fL (9.4-12.4); Platelet Count 155 X10*3/uL (160-400); Red Blood Count 2.51 X10*6/uL (4.60-5.80); Red Cell Distribution Width 12.2 % (11.0-16.0); White Blood Count 8.7 X10*3/uL (4.8-10.8)
[2021-03-29 06:37] LABS: Anion Gap 26 (12-20); Calcium 6.2 mg/dL (8.4-10.2); Carbon Dioxide 22 mmol/L (22-29); Chloride 94 mmol/L (96-108); Creatinine Clr Calc Pharmacy 4.8; Estimated Glomerular Filt Rate 3; Glucose Random 134 mg/dL (60-115); Sodium 138 mmol/L (135-145)
[2021-03-29 07:02] LABS: Blood Urea Nitrogen 187 mg/dL (9-16)
--- NOTE | 2021-03-29 09:42 | HO.PM.IMPN ---
Subjective Subjective Date of Service: 03/29/21 Interval History: f/u on renal failure, started hemodialysis Review of Systems Patient producing urine still has mild nausea Denies any new complaint of chest pain or shortness of breath or abdominal pain or fever or chills or vomiting Denies any cough Denies any weakness or numbness. Physical Exam Vital Signs: Vital Signs: Last Vital Signs Temp 98.6 F 03/29/21 04:00 Pulse 78 03/29/21 04:00 Resp 17 03/29/21 04:00 BP 117/56 L 03/29/21 04:00 Pulse Ox 99 03/29/21 04:00 BMI result Body Mass Index 26.2 Objective Data Active Medications Docusate Sodium (Docusate Sodium 100 Mg Capsule) 100 mg PO DAILY PRN PRN Reason: Constipation Sodium Bicarbonate 100 meq/ (Dextrose) 1,000 mls @ 50 mls/hr IV .Q20H [facility] Last Admin: 03/29/21 03:06 Dose: Not Given Documented by: NILDA Non-Admin Reason: IV Running Sevelamer Carbonate (Sevelamer Carbonate Tablet 800 Mg Tablet) 800 mg PO TIDWM [facility] Last Admin: 03/28/21 17:39 Dose: 800 mg Documented by: CORDELL Sodium Chloride (0.9 % Sodium Chloride Flush 3 Ml Syringe) 3 ml IVFLUSH QSHIFT [facility] Last Admin: 03/29/21 00:36 Dose: Not Given Documented by: NILDA Non-Admin Reason: IV Running Labs CBC & Chem 7: 03/29/21 05:36 03/29/21 05:36 Labs: Laboratory Results - last 24 hr 03/27/21 03/28/21 03/29/21 05:48 10:08 05:36 MCV 89.2 MCH 30.3 MCHC 33.9 RDW 12.2 Plt Count 155 L MPV 10.8 Absolute Nucleated RBC 0.000 Nucleated RBC % (auto) 0.0 Anion Gap Estim Creat Clear Calc Estimated GFR Random Glucose Calcium PTH Intact 403 H Calcium (PTH Intact) 6.6 L Ur Random Sodium 62.0 Urine Creatinine 57.56 03/29/21 05:36 MCV MCH MCHC RDW Plt Count MPV Absolute Nucleated RBC Nucleated RBC % (auto) Anion Gap 26 H Estim Creat Clear Calc 4.8 Estimated GFR 3 Random Glucose 134 H Calcium 6.2 L PTH Intact Calcium (PTH Intact) Ur Random Sodium Urine Creatinine Assessment and Plan (1) Anemia: Status: Acute (2) UTI (urinary tract infection): Status: Acute (3) Acute renal failure: Status: Acute Assessment and Plan: 70 yo M who reports no past medical history presents to the hospital with intractable nausea vomiting, weight loss, found to have severe kidney failure with Creatinine around 17 and bun around 200.. S/p bilateral reanal stenting with no sisngificant improment and now has permacath and started dialyis 03/29 1AKI- initially thought to be ostobstructive secondary to either enlarged prostate or or mass although no bladder mass seen on CT abdomen pelvis. has resendez and bilateral stent place with no significant change and it appears that there will not be sifnficant recover and therefore started dialysis today. 2 weight loss - most likely secondary to poor p.o. intake as well as nausea vomiting - will start him with regular diet as well as ensure supplement 3. intractable nausea vomiting--resolved, Zofran PRN 4. Anemia /normocytic: iron studies -probable aocd. b12 and folate seems fine h/h 7.6 /22.7( running currently between 7.5-8 range). DVT prophylaxis:? scd , going for Hd catheter placement Quality Stroke Does the patient have a stroke diagnosis?: No VTE Prior VTE?: No VTE Risk Level:: Medical - moderate - high VTE Device Contraindication: Treatment Not Indicated VTE Drug Contraindication: N/A - Med Ordered
[2021-03-29] MEDS: Sevelamer Carbonate Tablet 800 MG TABLET PO ×2 (10:53→17:26)
[2021-03-29 11:53] VITALS: BP 182/92; PULSE 94; RESP 20; TEMP 36.2; O2SAT 98
[2021-03-29] MEDS: Sodium Bicarbonate 8.4% 100 MEQ in Dextrose 5 % 900 ML 50 MEQ IV (15:00)
[2021-03-29 16:00] VITALS: BP 122/59; PULSE 88; RESP 18; TEMP 36.3; O2SAT 97
--- NOTE | 2021-03-29 16:47 | PM.PNNEP ---
Subjective Subjective Date of Service: 03/29/21 Principal diagnosis: DAVID Interval history: seen and examined, events noted Physical Exam Vital Signs: Vital Signs: Last Vital Signs Temp 97.4 F 03/29/21 16:00 Pulse 88 03/29/21 16:00 Resp 18 03/29/21 16:00 BP 122/59 L 03/29/21 16:00 Pulse Ox 97 03/29/21 16:00 BMI result Body Mass Index 26.2 Const: General: comfortable and well developed Orientation/consciousness: patient oriented x3 Eyes: EOM: EOMs intact bilaterally Neck: Neck: Yes supple Resp: Auscultation: diminished lung sounds Cardio: Rate: regular rate GI: Palpation (GI): Soft to palpation Neuro: General: patient oriented x3 and moves all extremities Objective Data Labs CBC & Chem 7: 03/29/21 05:36 03/29/21 05:36 Labs: Laboratory Results - last 24 hr 03/29/21 03/29/21 05:36 05:36 WBC 8.7 RBC 2.51 L Hgb 7.6 L Hct 22.4 L MCV 89.2 MCH 30.3 MCHC 33.9 RDW 12.2 Plt Count 155 L MPV 10.8 Absolute Nucleated RBC 0.000 Nucleated RBC % (auto) 0.0 Sodium 138 Potassium 4.0 Chloride 94 L Carbon Dioxide 22 Anion Gap 26 H BUN 187 H Creatinine 16.60 H* Estim Creat Clear Calc 4.8 Estimated GFR 3 Random Glucose 134 H Calcium 6.2 L Microbiology Microbiology Results: Microbiology 03/24/21 19:44 Urine Catheterized - Resendez Catheter Urine Culture - Final No growth. Procedures Date of Service Date of Service: 03/29/21 Assessment & Plan Assessment and plan (1) Acute renal failure: Start date: 03/29/21 Start time: 16:48 Status: Acute Assessment and Plan: 1. 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 Anemia: epo def 3. MBD with severe hyperphos; PTH pending 4. MOSS: urol w/u as noted; cont with resendez and GH REC: HD today and again tomorrow; [facility], phos binders as noted; epo as ordered; protect LUE for future AVF Will follow with team Time Spent With Patient Time: Total time spent is greater than 50% in coordination of care (as documented) at patient's floor/unit and/or counseling patient: Progress Note: Quality Stroke Does the patient have a stroke diagnosis?: No
[2021-03-29] MEDS: ondansetron HCL 4 MG/2 ML VIAL IVPUSH (17:43)
[2021-03-29 19:27] VITALS: BP 128/66; PULSE 83; RESP 18; TEMP 36.1; O2SAT 96
[2021-03-29 23:38] VITALS: BP 147/65; PULSE 84; RESP 17; TEMP 36.3; O2SAT 99
[2021-03-30] MEDS: diphenhydrAMINE HCL 25 MG TABLET PO (00:24)
[2021-03-30 03:44] VITALS: BP 127/63; PULSE 86; RESP 18; TEMP 36.8; O2SAT 97
[2021-03-30 04:00] LABS: HBS Num1 67.54 mIU/mL (0-7.99); HBc Num1 9.99 S/CO (0.00-0.79); ~Hepatitis B Surface Antibody REACTIVE (Nonreactive)
[2021-03-30 04:07] LABS: HBsAGNum1 0.19 S/CO (0.00-0.99); Hepatitis B Surface Antigen Negative (Negative); ~HepC Num1 0.12 S/CO (0.00-0.79); ~Hepatitis C Antibody Nonreactive (Nonreactive)
[2021-03-30 04:42] LABS: HBc Num2 10.11 S/CO; HBc Num3 10.21 S/CO; Hepatitis B Core Antibody Reactive (Nonreactive)
[2021-03-30 07:27] VITALS: BP 126/76; PULSE 88; RESP 18; TEMP 36.8; O2SAT 99
[2021-03-30] MEDS: Sevelamer Carbonate Tablet 800 MG TABLET PO ×3 (08:30→16:08)
[2021-03-30] MEDS: 0.9 % Sodium Chloride Flush 3 ML SYRINGE IVFLUSH ×3 (08:31→16:08)
--- NOTE | 2021-03-30 10:08 | HO.PM.IMPN ---
Subjective Subjective Date of Service: 03/30/21 Interval History: f/u on renal failure, started dialysis yesterday, feels better today Review of Systems no fever no sob no chest pain Physical Exam Vital Signs: Vital Signs: Last Vital Signs Temp 98.2 F 03/30/21 07:27 Pulse 88 03/30/21 07:27 Resp 18 03/30/21 07:27 BP 126/76 03/30/21 07:27 Pulse Ox 99 03/30/21 07:27 BMI result Body Mass Index 26.2 Const: Other: General: AO X 3, no acute distress Resp: CTA bilateral CVS: S1,S2,RRR GI: +BS, NT, no distention Skin: No rash Neuro: motor grossly intact Psych: appropriate affect Objective Data Active Medications Docusate Sodium (Docusate Sodium 100 Mg Capsule) 100 mg PO DAILY PRN PRN Reason: Constipation Sodium Bicarbonate 100 meq/ (Dextrose) 1,000 mls @ 50 mls/hr IV .Q20H [facility] Last Admin: 03/29/21 15:00 Dose: 50 mls/hr Documented by: RUBEN Ondansetron HCl (Ondansetron Hcl 4 Mg/2 Ml Vial) 4 mg IVPUSH Q8H PRN PRN Reason: Nausea and Vomiting Last Admin: 03/29/21 17:43 Dose: 4 mg Documented by: RUBEN Sevelamer Carbonate (Sevelamer Carbonate Tablet 800 Mg Tablet) 800 mg PO TIDWM [facility] Last Admin: 03/30/21 08:30 Dose: 800 mg Documented by: DEN Sodium Chloride (0.9 % Sodium Chloride Flush 3 Ml Syringe) 3 ml IVFLUSH QSHIFT [facility] Last Admin: 03/30/21 08:31 Dose: 3 ml Documented by: DEN Labs CBC & Chem 7: 03/29/21 05:36 03/29/21 05:36 Labs: Laboratory Results - last 24 hr 03/29/21 15:10 Hep Bs Antigen Negative Hep Bs Antibody REACTIVE Hep B Core Total Ab Reactive Hep B Core IgM Ab Cancelled Hepatitis C Ab (EIA) Nonreactive Assessment and Plan (1) Anemia: Status: Acute (2) UTI (urinary tract infection): Status: Acute (3) Acute renal failure: Status: Acute Assessment and Plan: 70 yo M who reports no past medical history presents to the hospital with intractable nausea vomiting, weight loss, found to have severe kidney failure with Creatinine around 17 and bun around 200.. S/p bilateral reanal stenting with no sisngificant improment and now has permacath and started dialyis 03/29 1AKI- initially thought to be ostobstructive secondary to either enlarged prostate or or mass although no bladder mass seen on CT abdomen pelvis. has resendez and bilateral stent place with no significant change and it appears that there will not be sifnficant recover and therefore started 03/29, another dialysis today. Nephrology is arranging outpatient dialysis spot 2 weight loss - most likely secondary to poor p.o. intake as well as nausea vomiting - will start him with regular diet as well as ensure supplement 3. intractable nausea vomiting--resolved, Zofran PRN 4. Anemia /normocytic: iron studies -probable aocd. b12 and folate seems fine h/h 7.6 /22.7( running currently between 7.5-8 range). DVT prophylaxis:? scd , going for Hd catheter placement Quality Stroke Does the patient have a stroke diagnosis?: No VTE Prior VTE?: No VTE Risk Level:: Medical - moderate - high VTE Device Contraindication: Treatment Not Indicated VTE Drug Contraindication: N/A - Med Ordered
--- NOTE | 2021-03-30 12:42 | MHC.CM.PN ---
PER PHYSICIAN ROUNDS, BEAD PREPARER IS SETTING UP OUTPATIENT DIALYSIS FOR PATIENT. CASE MANAGEMENT FOLLOWING FOR DC PLAN.
[2021-03-30] MEDS: Sodium Bicarbonate 8.4% 100 MEQ in Dextrose 5 % 900 ML 50 MEQ IV (14:07)
[2021-03-30 15:25] VITALS: BP 125/56; PULSE 118; RESP 20; TEMP 36.8; O2SAT 97
--- NOTE | 2021-03-30 15:54 | MHC.CLN ---
F/U STARTED HEMODIALYSIS 03/29. DIET CHANGED TO 2 GRAM SODIUM, LOW POTASSIUM, LOW PHOSPHORUS FOR DIALYSIS NEEDS. CURRENT INTAKE 0-50%. CONTINUE TO FOLLOW INTAKE/DIET TOLERANCE.
--- NOTE | 2021-03-30 16:03 | MHC.CM.PN ---
Addendum entered by Lorrie Machado 03/30/21 16:05: SHAWNA CAN BE REACHED AT [phone] Original Note: CALL FROM SHAWNA OF [facility]. THEY ARE UNABLE TO OFFER PATIENT HAS ONLY MEDICARE PART A SHE IS AWARE OF ATTEMPTS OT SECURE MEDICAID. SHE ASKS IF [facility] [place] A CONTRACT FOR SERVICES UNTIL PATIENT HAS SECURED THESE BENEFITS. CASE TO BE DISCUSSED WITH CM DIRECTOR.
[2021-03-30] MEDS: Docusate Sodium 100 MG CAPSULE PO (16:08)
--- NOTE | 2021-03-30 17:27 | P.PNNP_ITS ---
Subjective Subjective Date of Service: 03/30/21 Principal diagnosis: DAVID, HD dependent Interval history: seen and examined, events noted Physical Exam Vital Signs: Vital Signs: Last Vital Signs Temp 98.2 F 03/30/21 15:25 Pulse 118 H 03/30/21 15:25 Resp 20 03/30/21 15:25 BP 125/56 L 03/30/21 15:25 Pulse Ox 97 03/30/21 15:25 BMI result Body Mass Index 26.2 Const: General: comfortable and well developed Orientation/consciousness: patient oriented x3 Eyes: EOM: EOMs intact bilaterally Neck: Neck: Yes supple Resp: Auscultation: diminished lung sounds Cardio: Rate: regular rate GI: Palpation (GI): Soft to palpation Neuro: General: patient oriented x3 and moves all extremities Objective Data Labs CBC & Chem 7: 03/29/21 05:36 03/29/21 05:36 Labs: Laboratory Results - last 24 hr 03/29/21 15:10 Hep Bs Antigen Negative Hep Bs Antibody REACTIVE Hep B Core Total Ab Reactive Hep B Core IgM Ab Cancelled Hepatitis C Ab (EIA) Nonreactive Microbiology Microbiology Results: Microbiology 03/24/21 19:44 Urine Catheterized - Resendez Catheter Urine Culture - Final No growth. Procedures Date of Service Date of Service: 03/30/21 Assessment & Plan Assessment and plan (1) Acute renal failure: Start date: 03/30/21 Start time: 17:31 Status: Acute Assessment and Plan: 1. 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 Anemia: epo def 3. MBD with severe hyperphos; PTH pending 4. MOSS: urol w/u as noted; cont with resendez and GH REC: HD today and again tomorrow then transition to 3x/wk; outpt HD spot being arranged for [facility], phos binders as noted; epo as ordered; protect LUE for future AVF Will follow with team Time Spent With Patient Time: Total time spent is greater than 50% in coordination of care (as documented) at patient's floor/unit and/or counseling patient: Progress Note: Quality Stroke Does the patient have a stroke diagnosis?: No
[2021-03-30] MEDS: ondansetron HCL 4 MG/2 ML VIAL IVPUSH (19:37)
[2021-03-30 20:00] VITALS: BP 121/58; PULSE 92; RESP 18; TEMP 37; O2SAT 98
[2021-03-30 23:41] VITALS: BP 119/69; PULSE 89; RESP 17; TEMP 37.1; O2SAT 96
[2021-03-31 04:00] VITALS: BP 118/63; PULSE 83; RESP 17; TEMP 36.6; O2SAT 96
[2021-03-31 07:49] VITALS: BP 121/66; PULSE 85; RESP 19; TEMP 36.7; O2SAT 99
[2021-03-31] MEDS: Sodium Bicarbonate 8.4% 100 MEQ in Dextrose 5 % 900 ML 50 MEQ IV (08:33)
[2021-03-31] MEDS: Sevelamer Carbonate Tablet 800 MG TABLET PO ×2 (08:33→16:29)
--- NOTE | 2021-03-31 08:34 | MHC.CM.PN ---
THIS CM WAS IN CONTACTED FS TO DETERMINE ACTIVE DATE OF PT'S Definition 6, PER FS PT IS ACTIVE W/MEDICARE A HOWEVER PT EITHER CANCELLED, PT MAY HAVE A YEARLY 10% PENALTY. PER Definition 6 PT WILL HAVE TO RESIGN W/MEDICARE B AND IF APPROVED Definition 6 CAN HELP COVER THIS. FS REPORTED THEY HAVE ADVISED PT TO SIGN UP FOR MEDICARE B, CM WILL FOLLOW-UP W/PT. PER FS PT'S Definition 6 DANIELA WAS SENT OUT HOWEVER THEY WILL NOT MAKE A DECISION FOR 10DAYS, PER PREVIOUS NOTE PRINCE PACK HAD CALLED YESTERDAY TO SEE IF [facility] [place]LD ARRANGE TO COVER COST OF HD UNTIL INSURANCE IS REINSTATED, CM BUTT TRIMMER AND DIRECTOR AWARE AND WILL LOOK INTO IT. CM WILL CONT TO FOLLOW D/C NEEDS.
--- NOTE | 2021-03-31 10:25 | HO.PM.IMPN ---
Subjective Subjective Date of Service: 03/31/21 Interval History: f/u on renal failure now on dialysis, D 3 of dialysis today. He feels kourtney Review of Systems no fever no sob no chest pain Physical Exam Vital Signs: Vital Signs: Last Vital Signs Temp 98.1 F 03/31/21 07:49 Pulse 85 03/31/21 07:49 Resp 19 03/31/21 07:49 BP 121/66 03/31/21 07:49 Pulse Ox 99 03/31/21 07:49 BMI result Body Mass Index 26.2 Const: Other: General: AO X 3, no acute distress Resp: CTA bilateral CVS: S1,S2,RRR GI: +BS, NT, no distention Skin: No rash Neuro: motor grossly intact Psych: appropriate affect Objective Data Active Medications Docusate Sodium (Docusate Sodium 100 Mg Capsule) 100 mg PO DAILY PRN PRN Reason: Constipation Last Admin: 03/30/21 16:08 Dose: 100 mg Documented by: DAELEEMA Sodium Bicarbonate 100 meq/ (Dextrose) 1,000 mls @ 50 mls/hr IV .Q20H [facility] Last Admin: 03/31/21 08:33 Dose: 50 mls/hr Documented by: ADELEEMA Ondansetron HCl (Ondansetron Hcl 4 Mg/2 Ml Vial) 4 mg IVPUSH Q8H PRN PRN Reason: Nausea and Vomiting Last Admin: 03/30/21 19:37 Dose: 4 mg Documented by: SALONI Sevelamer Carbonate (Sevelamer Carbonate Tablet 800 Mg Tablet) 800 mg PO TIDWM [facility] Last Admin: 03/31/21 08:33 Dose: 800 mg Documented by: BOLIVAR Sodium Chloride (0.9 % Sodium Chloride Flush 3 Ml Syringe) 3 ml IVFLUSH QSHIFT [facility] Last Admin: 03/31/21 07:34 Dose: Not Given Documented by: ADELEEMA Non-Admin Reason: IV Running Labs CBC & Chem 7: 03/29/21 05:36 03/29/21 05:36 Assessment and Plan (1) Anemia: Status: Acute (2) UTI (urinary tract infection): Status: Acute (3) Acute renal failure: Status: Acute Assessment and Plan: 70 yo M who reports no past medical history presents to the hospital with intractable nausea vomiting, weight loss, found to have severe kidney failure with Creatinine around 17 and bun around 200.. S/p bilateral reanal stenting with no sisngificant improment and now has permacath and started dialyis 03/29 1AKI- initially thought to be ostobstructive secondary to either enlarged prostate or or mass although no bladder mass seen on CT abdomen pelvis. has resendez and bilateral stent place with no significant change and it appears that there will not be sifnficant recover and therefore started dialysis today . Nephrology is arranging outpatient dialysis spot 2 weight loss - most likely secondary to poor p.o. intake as well as nausea vomiting - will start him with regular diet as well as ensure supplement 3. intractable nausea vomiting--resolved, Zofran PRN 4. Anemia /normocytic: iron studies -probable aocd. b12 and folate seems fine h/h 7.6 /22.7( running currently between 7.5-8 range). DVT prophylaxis:? scd , going for Hd catheter placement Quality Stroke Does the patient have a stroke diagnosis?: No VTE Prior VTE?: No VTE Risk Level:: Medical - moderate - high VTE Device Contraindication: Treatment Not Indicated VTE Drug Contraindication: N/A - Med Ordered
--- NOTE | 2021-03-31 12:32 | P.PNNP_ITS ---
Subjective Subjective Date of Service: 03/31/21 Principal diagnosis: DAVID, HD dependent Interval history: Seen and examined, events noted Physical Exam Vital Signs: Vital Signs: Last Vital Signs Temp 98.1 F 03/31/21 07:49 Pulse 85 03/31/21 07:49 Resp 19 03/31/21 07:49 BP 121/66 03/31/21 07:49 Pulse Ox 99 03/31/21 07:49 BMI result Body Mass Index 26.2 Const: General: comfortable and well developed Orientation/consciousness: patient oriented x3 Eyes: EOM: EOMs intact bilaterally Neck: Neck: Yes supple Resp: Auscultation: diminished lung sounds Cardio: Rate: regular rate GI: Palpation (GI): Soft to palpation Neuro: General: patient oriented x3 and moves all extremities Objective Data Labs CBC & Chem 7: 03/29/21 05:36 03/29/21 05:36 Microbiology Microbiology Results: Microbiology 03/24/21 19:44 Urine Catheterized - Resendez Catheter Urine Culture - Final No growth. Procedures Date of Service Date of Service: 03/31/21 Assessment & Plan Assessment and plan (1) Acute renal failure: Status: Acute Assessment and Plan: 1. 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 Anemia: epo def and ques Fe def 3. MBD with severe hyperphos; low Ca and incr PTH 4. MOSS: urol w/u as noted; cont with resendez and GH Insurance: does not have medicare or [employer] which may impact d/c options--CaseManagement is working on it REC: HD again today and then transition to 3x/wk; outpt HD spot being arranged --no spots in [place] [facility], phos binders as noted; epo as ordered; protect LUE for future AVF; check Fe studies and repeat Phso leel ( i added) Will follow with team Time Spent With Patient Time: Total time spent is greater than 50% in coordination of care (as documente d) at patient's floor/unit and/or counseling patient: Progress Note: Quality Stroke Does the patient have a stroke diagnosis?: No
--- NOTE | 2021-03-31 12:45 | MHC.CM.PN ---
CM ATTEMPTED TO MEET W/PT HOWEVER PT OFF UNIT AT DIALYSIS, CM TO REVISIT.
--- NOTE | 2021-03-31 13:43 | MHC.CLN ---
F/U INTAKE APPEARS TO BE POOR TO FAIR, 25-50%. CONTINUE TO FOLLOW.
[2021-03-31 15:02] VITALS: BP 110/57; PULSE 97; RESP 16; TEMP 36.8; O2SAT 99
--- NOTE | 2021-03-31 15:12 | MHC.CM.PN ---
NURSE PRODUCT STRATEGY DIRECTOR NOTE PATIENT ADMITTED WITH THE DIAGNOSIS OF ACUTE KIDNEY IN JURY TO ESRD HE HAD HEMO DIALYSIS CATH PLACED AND STARTED HIS FIRST HD ON 03/30/21 AND AGING TODAY 03/31 AND SCHEDULED FOR TOMORROW. SPOKE WITH PATINT AND BFINANCIAL COUNSELORS , PPATIENT WILL TRY TO OBTAIN HIS LAB TOP AND FILLE WITH MEDICARE FOR MEDICARE PART B, PER FINALCIAL [facility] APPLICATION HAS BEEN SUMITTED AND ONCE APPROVED THEY WILL HELP PATIENT WITH SOME OF THE COST OF THE MEDICARE PART B AND RENALTIES PAYMENT. THE RENAL PHYSICIANS HAVE ALREADY INIATED TREATMENT FOR HEMODIALYSI AT THE [facility] BUT AT THE PRESENT TIME HE HAS NO PAYEMENT SOURCE FOR OUTPATIENT HEMODIALYSIS HE WILL BE HERE THROUIGH THE WEEKEND
[2021-03-31] MEDS: 0.9 % Sodium Chloride Flush 3 ML SYRINGE IVFLUSH ×2 (16:29→21:54)
[2021-03-31] MEDS: Docusate Sodium 100 MG CAPSULE PO (16:35)
[2021-03-31 20:00] VITALS: BP 122/64; PULSE 96; RESP 18; TEMP 36.1; O2SAT 99
[2021-04-01] VITALS: BP 121/55; PULSE 91; RESP 17; TEMP 36.4; O2SAT 98
[2021-04-01 04:00] VITALS: BP 100/53; PULSE 98; RESP 17; TEMP 36.3; O2SAT 98
[2021-04-01 07:48] VITALS: BP 132/63; PULSE 90; RESP 19; TEMP 36.4; O2SAT 99
[2021-04-01] MEDS: 0.9 % Sodium Chloride Flush 3 ML SYRINGE IVFLUSH ×3 (08:27→19:28)
[2021-04-01] MEDS: Sevelamer Carbonate Tablet 800 MG TABLET PO ×3 (08:27→17:37)
--- NOTE | 2021-04-01 09:24 | P.PNNP_ITS ---
Subjective Subjective Date of Service: 04/01/21 Principal diagnosis: DAVID, HD dependent Interval history: Seen and examined, events noted discussed with medical attending no complaints Physical Exam Vital Signs: Vital Signs: Last Vital Signs Temp 97.5 F 04/01/21 07:48 Pulse 90 04/01/21 07:48 Resp 19 04/01/21 07:48 BP 132/63 04/01/21 07:48 Pulse Ox 99 04/01/21 07:48 BMI result Body Mass Index 26.2 Const: General: alert and awake HENMT: Head: Yes normocephalic and Yes atraumatic Neck: Neck: Yes supple Resp: Auscultation: diminished lung sounds Cardio: Heart sounds: S1 normal heart sound present and S2 normal heart sound present GI: Palpation (GI): Soft to palpation and nontender Extrem: General: No edema Objective Data Labs CBC & Chem 7: 03/29/21 05:36 03/29/21 05:36 Microbiology Microbiology Results: Microbiology 03/24/21 19:44 Urine Catheterized - Grijalva Catheter Urine Culture - Final No growth. Procedures Date of Service Date of Service: 04/01/21 Assessment & Plan Assessment and plan (1) ESRD (end stage renal disease): Status: Acute (2) Bilateral hydronephrosis: Status: Acute (3) Anemia: Status: Acute Assessment and Plan: probably end stage kidney disease due to chronic obstructive uropathy s/p Grijlava and bilateral stents without any recovery he does not have medicare or [facility] which may impact d/c options Case Management is involved REC HD? per scehdule renal diet [place] per protocol phosphate binders protect non dominant arm outpatient HD being arranged (no spots in [facility] currently) Time Spent With Patient Time: Total time spent is greater than 50% in coordination of care (as documented) at patient's floor/unit and/or counseling patient: Progress Note: Quality Stroke Does the patient have a stroke diagnosis?: No
--- NOTE | 2021-04-01 10:38 | P.PNIM_ITS ---
Subjective Subjective Date of Service: 04/01/21 Interval History: f/u on renal failure now on dialysis, D 3 of dialysis today. Has no new complaint Review of Systems no fever no sob no chest pain Physical Exam Vital Signs: Vital Signs: Last Vital Signs Temp 97.5 F 04/01/21 07:48 Pulse 90 04/01/21 07:48 Resp 19 04/01/21 07:48 BP 132/63 04/01/21 07:48 Pulse Ox 99 04/01/21 07:48 BMI result Body Mass Index 26.2 Const: Other: General: AO X 3, no acute distress Resp: CTA bilateral CVS: S1,S2,RRR GI: +BS, NT, no distention Skin: No rash Neuro: motor grossly intact Psych: appropriate affect Objective Data Active Medications Docusate Sodium (Docusate Sodium 100 Mg Capsule) 100 mg PO DAILY PRN PRN Reason: Constipation Last Admin: 03/31/21 16:35 Dose: 100 mg Documented by: BOLIVAR Ondansetron HCl (Ondansetron Hcl 4 Mg/2 Ml Vial) 4 mg IVPUSH Q8H PRN PRN Reason: Nausea and Vomiting Last Admin: 03/30/21 19:37 Dose: 4 mg Documented by: SALONI Sevelamer Carbonate (Sevelamer Carbonate Tablet 800 Mg Tablet) 800 mg PO TIDWM [facility] Last Admin: 04/01/21 08:27 Dose: 800 mg Documented by: AVTAR Sodium Chloride (0.9 % Sodium Chloride Flush 3 Ml Syringe) 3 ml IVFLUSH QSHIFT [facility] Last Admin: 04/01/21 08:27 Dose: 3 ml Documented by: AVTAR Labs CBC & Chem 7: 03/29/21 05:36 03/29/21 05:36 Assessment and Plan (1) Anemia: Status: Acute (2) UTI (urinary tract infection): Status: Acute (3) Acute renal failure: Status: Acute Assessment and Plan: 70 yo M who reports no past medical history presents to the hospital with intractable nausea vomiting, weight loss, found to have severe kidney failure with Creatinine around 17 and bun around 200.. S/p bilateral reanal stenting with no sisngificant improment and now has permacath and started dialyis 03/29 1AKI- initially thought to be ostobstructive secondary to either enlarged p rostate or or mass although no bladder mass seen on CT abdomen pelvis. has resendez and bilateral stent place with no significant change and it appears that there will not be sifnficant recover and therefore started dialysis today . Nephrology is arranging outpatient dialysis spot 2 weight loss - most likely secondary to poor p.o. intake as well as nausea vomiting - will start him with regular diet as well as ensure supplement 3. intractable nausea vomiting--resolved, Zofran PRN 4. Anemia /normocytic: iron studies -probable aocd. b12 and folate seems fine h/h 7.6 /22.7( running currently between 7.5-8 range). DVT prophylaxis:? compression device in light of hematuria earlier awaiting placment Quality Stroke Does the patient have a stroke diagnosis?: No VTE Prior VTE?: No VTE Risk Level:: Medical - moderate - high VTE Device Contraindication: Treatment Not Indicated VTE Drug Contraindication: N/A - Med Ordered
[2021-04-01 11:37] VITALS: BP 111/56; PULSE 88; RESP 18; TEMP 36.8; O2SAT 98
--- NOTE | 2021-04-01 13:39 | MHC.CLN ---
F/U INTAKE APPEARS TO BE IMPROVING. CONTINUE TO FOLLOW.
[2021-04-01 16:00] VITALS: BP 107/55; PULSE 86; RESP 17; TEMP 36.2; O2SAT 100
[2021-04-01 19:47] VITALS: BP 132/69; PULSE 93; RESP 17; TEMP 36; O2SAT 100
[2021-04-02] VITALS: BP 143/72; PULSE 82; RESP 17; TEMP 36.1; O2SAT 100
[2021-04-02 08:00] VITALS: BP 130/70; PULSE 83; RESP 16; TEMP 36.1; O2SAT 100
[2021-04-02] MEDS: 0.9 % Sodium Chloride Flush 3 ML SYRINGE IVFLUSH ×3 (08:12→19:25)
[2021-04-02] MEDS: Sevelamer Carbonate Tablet 800 MG TABLET PO ×3 (08:12→16:12)
--- NOTE | 2021-04-02 08:55 | PM.PNNEP ---
Subjective Subjective Date of Service: 04/02/21 Principal diagnosis: DAVID, HD dependent Interval history: seen and examined no new complaint Physical Exam Vital Signs: Vital Signs: Last Vital Signs Temp 97.0 F 04/02/21 08:00 Pulse 83 04/02/21 08:00 Resp 16 04/02/21 08:00 BP 130/70 04/02/21 08:00 Pulse Ox 100 04/02/21 08:00 BMI result Body Mass Index 26.2 Const: General: alert and awake HENMT: Head: Yes normocephalic and Yes atraumatic Neck: Neck: Yes supple Resp: Auscultation: diminished lung sounds Cardio: Heart sounds: S1 normal heart sound present and S2 normal heart sound present GI: Palpation (GI): Soft to palpation and nontender Extrem: General: No edema Objective Data Labs CBC & Chem 7: 03/29/21 05:36 03/29/21 05:36 Microbiology Microbiology Results: Microbiology 03/24/21 19:44 Urine Catheterized - Grijalva Catheter Urine Culture - Final No growth. Procedures Date of Service Date of Service: 04/02/21 Assessment & Plan Assessment and plan (1) ESRD (end stage renal disease): Status: Acute (2) Bilateral hydronephrosis: Status: Acute (3) Anemia: Status: Acute Assessment and Plan: probably end stage kidney disease due to chronic obstructive uropathy s/p Grijalva and bilateral stents without any recovery he does not have medicare or [facility] which may impact d/c options Case Management is involved anemia in the setting of [facility] REC HD?tomorrow renal diet [place] per protocol phosphate binders protect non dominant arm outpatient HD being arranged (no spots in [facility] currently) Time Spent With Patient Time: Total time spent is greater than 50% in coordination of care (as documented) at patient's floor/unit and/or counseling patient: Progress Note: Quality Stroke Does the patient have a stroke diagnosis?: No
--- NOTE | 2021-04-02 09:59 | MHC.CM.PN ---
CM MET W/PT TO CHECK ON PROCESS OF PT SIGNING UP FOR MEDICARE PART B, PT REPORTS HE HAS ATTEMPTED TO CALL AND COULD NOT GET HELP AND ATTEMPTED TO USE HIS PHONE UNSUCCESSFULLY, PT REPORTS HOUSEMATE AND FRIENDS ARE AWAY FOR HOLIDAY AND UNABLE TO BRING IN LAP TOP, CM WILL CONTACT NURSING AUTOMATED EQUIPMENT ENGINEER TECHNICIAN TO SEE IF PT CAN USE IPAD TO SIGN UP FOR MEDICARE PART B.
[2021-04-02 11:57] VITALS: BP 137/72; PULSE 95; RESP 17; TEMP 36.4; O2SAT 98
--- NOTE | 2021-04-02 14:37 | P.PNIM_ITS ---
Subjective Subjective Date of Service: 04/03/21 Review of Systems Follow-up renal failure Feeling much better Denies nausea vomiting diarrhea chest pain or shortness of breath All other systems are reviewed are negative Physical Exam Verdana 4l Vital Signs: Verdana 4d Verdana 4d Vital Signs: Verdana 4d Verdana 4Bd Last Vital Signs Verdana 4d Bone Plant Supervisor New 4d Bone Plant Supervisor New 4d Temp 97.6 F 04/02/21 11:57 Bone Plant Supervisor New 4d Pulse 95 04/02/21 11:57 Bone Plant Supervisor NewNew 4d Resp 17 04/02/21 11:57 BP 137/72 04/02/21 11:57 Pulse Ox 98 04/02/21 11:57 BMI result Body Mass Index 26.2 Appearing in no acute distress lung sounds are clear to auscultation heart regular rate rhythm, clear S1, S2 positive bowel sounds, abdomen is soft, nontender neuro patient is alert x3, no focal deficits Objective Data Active Medications Docusate Sodium (Docusate Sodium 100 Mg Capsule) 100 mg PO DAILY PRN PRN Reason: Constipation Last Admin: 03/31/21 16:35 Dose: 100 mg Documented by: BOLIVAR Ondansetron HCl (Ondansetron Hcl 4 Mg/2 Ml Vial) 4 mg IVPUSH Q8H PRN PRN Reason: Nausea and Vomiting Last Admin: 03/30/21 19:37 Dose: 4 mg Documented by: SALONI Sevelamer Carbonate (Sevelamer Carbonate Tablet 800 Mg Tablet) 800 mg PO TIDWM [facility] Last Admin: 04/02/21 12:04 Dose: 800 mg Documented by: BOLIVAR Sodium Chloride (0.9 % Sodium Chloride Flush 3 Ml Syringe) 3 ml IVFLUSH QSHIFT [facility] Last Admin: 04/02/21 08:12 Dose: 3 ml Documented by: BOLIVAR Labs CBC & Chem 7: 03/29/21 05:36 04/03/21 06:18 Assessment and Plan (1) ESRD (end stage renal disease): Status: Acute (2) Weight loss: Status: Acute (3) Anemia: Status: Acute Assessment and Plan: 70 yo M who reports no past medical history presents to the hospital with intractable nausea vomiting, weight loss, found to have severe kidney failure with Creatinine around 17 and bun around 200.. S/p bilateral reanal stenting with no sisngificant improment? and now has permacath and started dialyis 03/29 DAVID. initially thought to be ostobstructive secondary to either enlarged prostate or or mass although no bladder mass seen on CT abdomen pelvis. Has resendez and?bilateral stent placed with no significant change and it appears that there will not be significant recovery and therefore started 03/29 on dialysis, 3rd dialysis today . Nephrology is arranging outpatient dialysis Weight loss secondary to nausea and vomiting and poor oral intake most likely secondary to poor p.o. intake as well as nausea vomiting will start him with regular diet as well as ensure supplement Zofran PRN Anemia /normocytic iron studies -probable aocd. b12 and folate seems fine h/h 7.6 /22.7( running currently between 7.5-8 range). DISPO [employer] application pending DVT prophylaxis:? compression device in light of hematuria earlier awaiting placement Attending Dr. Box Quality Stroke Does the patient have a stroke diagnosis?: No VTE Prior VTE?: No VTE Risk Level:: Medical - moderate - high VTE Device Contraindication: Treatment Not Indicated VTE Drug Contraindication: N/A - Med Ordered
[2021-04-02 15:56] VITALS: BP 152/86; PULSE 99; RESP 18; TEMP 36.4; O2SAT 98
[2021-04-02 19:28] VITALS: BP 149/77; PULSE 97; RESP 18; TEMP 36.3; O2SAT 98
[2021-04-02 23:39] VITALS: BP 131/68; PULSE 94; RESP 18; TEMP 36.4; O2SAT 99
[2021-04-03 04:34] VITALS: BMI 26.0
[2021-04-03 07:13] LABS: Anion Gap 17 (12-20); Blood Urea Nitrogen 64 mg/dL (9-16); Calcium 7.3 mg/dL (8.4-10.2); Carbon Dioxide 20 mmol/L (22-29); Chloride 100 mmol/L (96-108); Creatinine Clr Calc Pharmacy 9.7; Estimated Glomerular Filt Rate 7; Glucose Random 92 mg/dL (60-115); Potassium 4.3 mmol/L (3.3-5.1); Sodium 133 mmol/L (135-145)
[2021-04-03 08:00] VITALS: BP 124/65; PULSE 82; RESP 18; TEMP 36.4; O2SAT 98
[2021-04-03] MEDS: Sevelamer Carbonate Tablet 800 MG TABLET PO ×3 (09:43→17:14)
[2021-04-03] MEDS: 0.9 % Sodium Chloride Flush 3 ML SYRINGE IVFLUSH ×2 (09:43→17:14)
--- NOTE | 2021-04-03 10:00 | P.PNNP_ITS ---
Subjective Subjective Date of Service: 04/03/21 Principal diagnosis: DAVID, HD dependent Interval history: seen and examined no new complaint or events Physical Exam Vital Signs: Vital Signs: Last Vital Signs Temp 97.5 F 04/03/21 08:00 Pulse 82 04/03/21 08:00 Resp 18 04/03/21 08:00 BP 124/65 04/03/21 08:00 Pulse Ox 98 04/03/21 08:00 BMI result Body Mass Index 26.0 Const: General: alert and awake HENMT: Head: Yes normocephalic and Yes atraumatic Neck: Neck: Yes supple Resp: Auscultation: diminished lung sounds Cardio: Heart sounds: S1 normal heart sound present and S2 normal heart sound present GI: Palpation (GI): Soft to palpation and nontender Extrem: General: No edema Objective Data Labs CBC & Chem 7: 03/29/21 05:36 04/03/21 06:18 Labs: Laboratory Results - last 24 hr 04/03/21 06:18 Sodium 133 L Potassium 4.3 Chloride 100 Carbon Dioxide 20 L Anion Gap 17 BUN 64 H D Creatinine 8.17 H* Estim Creat Clear Calc 9.7 Estimated GFR 7 Random Glucose 92 Calcium 7.3 L D Microbiology Microbiology Results: Microbiology 03/24/21 19:44 Urine Catheterized - Grijalva Catheter Urine Culture - Final No growth. Procedures Date of Service Date of Service: 04/03/21 Assessment & Plan Assessment and plan (1) ESRD (end stage renal disease): Status: Acute (2) Bilateral hydronephrosis: Status: Acute (3) Anemia: Status: Acute Assessment and Plan: probably end stage kidney disease due to chronic obstructive uropathy s/p Grijalva and bilateral stents without any recovery he [facility] may impact d/c options Case Management is involved anemia in the setting of [facility]KD REC HD?per schedule renal diet [place] per protocol phosphate binders protect non dominant arm outpatient HD being arranged (no spots in [place] [facility] currently) Time Spent With Patient Time: Total time spent is greater than 50% in coordination of care (as documented) at patient's floor/unit and/or counseling patient: Progress Note: Quality Stroke Does the patient have a stroke diagnosis?: No
--- NOTE | 2021-04-03 11:48 | P.PNIM_ITS ---
Subjective Subjective Date of Service: 04/03/21 Review of Systems Follow-up renal failure Feeling much better Having diarrhea All other systems are reviewed are negative Physical Exam Verdana 4l Vital Signs: Verdana 4d Verdana 4d Vital Signs: Verdana 4d Verdana 4Bd Last Vital Signs Verdana 4d Strip Cutting Machine Operator New 4d Strip Cutting Machine Operator New 4d Temp 97.5 F 04/03/21 08:00 Strip Cutting Machine Operator New 4d Pulse 82 04/03/21 08:00 Strip Cutting Machine Operator NewNew 4d Resp 18 04/03/21 08:00 BP 124/65 04/03/21 08:00 Pulse Ox 98 04/03/21 08:00 BMI result Body Mass Index 26.0 Appearing in no acute distress lung sounds are clear to auscultation heart regular rate rhythm, clear S1, S2 positive bowel sounds, abdomen is soft, nontender neuro patient is alert x3, no focal deficits Objective Data Active Medications Docusate Sodium (Docusate Sodium 100 Mg Capsule) 100 mg PO DAILY PRN PRN Reason: Constipation Last Admin: 03/31/21 16:35 Dose: 100 mg Documented by: BOLIVAR Ondansetron HCl (Ondansetron Hcl 4 Mg/2 Ml Vial) 4 mg IVPUSH Q8H PRN PRN Reason: Nausea and Vomiting Last Admin: 03/30/21 19:37 Dose: 4 mg Documented by: SALONI Sevelamer Carbonate (Sevelamer Carbonate Tablet 800 Mg Tablet) 800 mg PO TIDWM [facility] Last Admin: 04/03/21 09:43 Dose: 800 mg Documented by: CARLIE Sodium Chloride (0.9 % Sodium Chloride Flush 3 Ml Syringe) 3 ml IVFLUSH QSHIFT [facility] Last Admin: 04/03/21 09:43 Dose: 3 ml Documented by: CARLIE Labs CBC & Chem 7: 03/29/21 05:36 04/03/21 06:18 Labs: Laboratory Results - last 24 hr 04/03/21 06:18 Anion Gap 17 Estim Creat Clear Calc 9.7 Estimated GFR 7 Random Glucose 92 Calcium 7.3 L D Assessment and Plan (1) ESRD (end stage renal disease): Status: Acute (2) Diarrhea: Status: Acute Assessment and Plan: 70 yo M who reports no past medical history presents to the hospital with intractable nausea vomiting, weight loss, found to have severe kidney failure with Creatinine around 17 and bun around 200.. S/p bilateral reanal stenting with no sisngificant improment? and now has permacath and started dialyis 03/29 Diarhea No fever check cdiff DAVID. initially thought to be ostobstructive secondary to either enlarged prostate or or mass although no bladder mass seen on CT abdomen pelvis. Has resendez and?bilateral stent placed with no significant change and it appears that there will not be significant recovery and therefore started 03/29 on dialysis, 3rd dialysis today . Nephrology is arranging outpatient dialysis Weight loss secondary to nausea and vomiting and poor oral intake most likely secondary to poor p.o. intake as well as nausea vomiting will start him with regular diet as well as ensure supplement Zofran PRN Anemia /normocytic iron studies -probable aocd. b12 and folate seems fine h/h 7.6 /22.7( running currently between 7.5-8 range). DISPO [employer] application pending DVT prophylaxis:? compression device in light of hematuria earlier awaiting placement Attending Dr. Box Quality Stroke Does the patient have a stroke diagnosis?: No VTE Prior VTE?: No VTE Risk Level:: Medical - moderate - high VTE Device Contraindication: Treatment Not Indicated VTE Drug Contraindication: N/A - Med Ordered
[2021-04-03 12:00] VITALS: BP 134/65; PULSE 80; RESP 18; TEMP 36.2; O2SAT 99
[2021-04-03 16:00] VITALS: BP 130/64; PULSE 82; RESP 17; TEMP 36.2; O2SAT 98
[2021-04-03 19:18] VITALS: BP 121/63; PULSE 87; RESP 18; TEMP 36.5; O2SAT 100
[2021-04-03 23:32] VITALS: BP 147/72; PULSE 88; RESP 19; TEMP 36.6; O2SAT 99
[2021-04-04] MEDS: 0.9 % Sodium Chloride Flush 3 ML SYRINGE IVFLUSH ×4 (00:44→22:20)
[2021-04-04 03:43] VITALS: RESP 20
[2021-04-04 03:52] VITALS: RESP 19
[2021-04-04 05:59] LABS: Hematocrit 22.7 % (42.0-52.0); Hemoglobin 7.3 g/dl (14.0-18.0); Mean Corpuscular HGB Conc 32.2 g/dl (31.0-36.0); Mean Corpuscular Hemoglobin 30.3 pg (27.0-33.0); Mean Corpuscular Volume 94.2 fL (80.0-98.0); Mean Platelet Volume 9.5 fL (9.4-12.4); Platelet Count 161 X10*3/uL (160-400); Red Blood Count 2.41 X10*6/uL (4.60-5.80); Red Cell Distribution Width 12.8 % (11.0-16.0); White Blood Count 7.2 X10*3/uL (4.8-10.8)
[2021-04-04 06:00] VITALS: BMI 25.7
[2021-04-04 06:43] LABS: Anion Gap 19 (12-20); Blood Urea Nitrogen 71 mg/dL (9-16); Calcium 7.4 mg/dL (8.4-10.2); Carbon Dioxide 19 mmol/L (22-29); Chloride 101 mmol/L (96-108); Estimated Glomerular Filt Rate 6; Glucose Random 92 mg/dL (60-115); Potassium 4.3 mmol/L (3.3-5.1); Sodium 135 mmol/L (135-145)
[2021-04-04 08:00] VITALS: BP 125/64; PULSE 81; RESP 18; TEMP 36.9; O2SAT 98
[2021-04-04] MEDS: Sevelamer Carbonate Tablet 800 MG TABLET PO ×3 (08:33→14:46)
--- NOTE | 2021-04-04 10:19 | W.PM.DNNEP ---
Subjective Subjective Principal diagnosis: DAVID, HD dependent This patient was seen during dialysis. Interval history: seen and examined no new complaint or events Physical Exam Vital Signs: Vital Signs: Last Vital Signs Temp 98.4 F 04/04/21 08:00 Pulse 81 04/04/21 08:00 Resp 18 04/04/21 08:00 BP 125/64 04/04/21 08:00 Pulse Ox 98 04/04/21 08:00 BMI result Body Mass Index 25.7 Const: Other: General: AO X 3, no acute distress Resp: CTA bilateral CVS: S1,S2,RRR GI: +BS, NT, no distention Skin: No rash Neuro: motor grossly intact Psych: appropriate affect General: cooperative, healthy appearing, comfortable, no acute distress, well developed, alert and awake Orientation/consciousness: patient oriented x3 Limitations: No language barrier HENMT: Head: Yes normocephalic and Yes atraumatic Face and sinus: Yes normal facial exam Mouth: moist mucous membranes Eyes: EOM: EOMs intact bilaterally Neck: Neck: Yes normal visual inspection, Yes full ROM, Yes trachea midline and Yes supple Chest: Chest palpation & inspection: normal inspection of the chest Resp: Effort & Inspection: normal respiratory effort, able to speak in complete sentences and no respiratory distress Auscultation: diminished lung sounds Cardio: Rate: regular rate Heart sounds: S1 normal heart sound present and S2 normal heart sound present GI: Inspection: Yes normal to inspection Palpation (GI): Soft to palpation and nontender Back/Spine/Pelvis: Cervical Spine: normal cervical lordosis Thoracic/Lumbar Spine: thoracic and lumbar spine normal to inspection Skin: General skin exam: no rashes or lesions noted Neuro: General: patient oriented x3, tone normal and moves all extremities Extrem: General: Yes normal to inspection, Yes capillary refill normal and No edema Assessment & Plan Assessment and plan (1) ESRD (end stage renal disease): Status: Acute (2) Diarrhea: Status: Acute Assessment and Plan: 70 yo M who reports no past medical history presents to the hospital with intractable nausea vomiting, weight loss, found to have severe kidney failure with Creatinine around 17 and bun around 200.. S/p bilateral renal stenting with no significant improvement? and now has permacath and started dialysis 03/29 Diarhea No fever check cdiff DAVID. initially thought to be ostobstructive secondary to either enlarged prostate or or mass although no bladder mass seen on CT abdomen pelvis. Has resendez and?bilateral stent placed with no significant change and it appears that there will not be significant recovery and therefore started 03/29 on dialysis, 3rd dialysis today . Nephrology is arranging outpatient dialysis Weight loss secondary to nausea and vomiting and poor oral intake most likely secondary to poor p.o. intake as well as nausea vomiting will start him with regular diet as well as ensure supplement Zofran PRN Anemia /normocytic iron studies b12 and folate seems fine h/h 7.6 /22.7( running currently between 7.5-8 range). procrit ordered Time Spent With Patient Time: Total time spent is greater than 50% in coordination of care (as documented) at patient's floor/unit and/or counseling patient: Procedures Date of Service Date of Service: 04/04/21
--- NOTE | 2021-04-04 10:22 | P.PNIM_ITS ---
Subjective Subjective Date of Service: 04/04/21 Review of Systems Follow-up renal failure Feeling much better Having diarrhea All other systems are reviewed are negative Physical Exam Vital Signs: Vital Signs: Last Vital Signs Temp 98.4 F 04/04/21 08:00 Pulse 81 04/04/21 08:00 Resp 18 04/04/21 08:00 BP 125/64 04/04/21 08:00 Pulse Ox 98 04/04/21 08:00 BMI result Body Mass Index 25.7 Appearing in no acute distress lung sounds are clear to auscultation heart regular rate rhythm, clear S1, S2 positive bowel sounds, abdomen is soft, nontender neuro patient is alert x3, no focal deficits Objective Data Active Medications Docusate Sodium (Docusate Sodium 100 Mg Capsule) 100 mg PO DAILY PRN PRN Reason: Constipation Last Admin: 03/31/21 16:35 Dose: 100 mg Documented by: ADELEEMA Ondansetron HCl (Ondansetron Hcl 4 Mg/2 Ml Vial) 4 mg IVPUSH Q8H PRN PRN Reason: Nausea and Vomiting Last Admin: 03/30/21 19:37 Dose: 4 mg Documented by: SALONI Sevelamer Carbonate (Sevelamer Carbonate Tablet 800 Mg Tablet) 800 mg PO TIDWM [facility] Last Admin: 04/04/21 08:33 Dose: 800 mg Documented by: CARLIE Sodium Chloride (0.9 % Sodium Chloride Flush 3 Ml Syringe) 3 ml IVFLUSH [facility] Last Admin: 04/04/21 08:34 Dose: 3 ml Documented by: CARLIE Labs CBC & Chem 7: 04/04/21 05:25 04/04/21 05:25 Labs: Laboratory Results - last 24 hr 04/04/21 04/04/21 05:25 05:25 MCV 94.2 D MCH 30.3 MCHC 32.2 RDW 12.8 Plt Count 161 MPV 9.5 Absolute Nucleated RBC 0.000 Nucleated RBC % (auto) 0.0 Anion Gap 19 Estim Creat Clear Calc 9.0 Estimated GFR 6 Random Glucose 92 Calcium 7.4 L Assessment and Plan (1) Diarrhea: Status: Acute (2) ESRD (end stage renal disease): Status: Acute Assessment and Plan: 70 yo M who reports no past medical history presents to the hospital with intractable nausea vomiting, weight loss, found to have severe kidney failure with Creatinine around 17 and bun around 200.. S/p bilateral reanal stenting with no sisngificant improment? and now has permacath and started dialyis 03/29 Diarhea No fever check cdiff DAVID. initially thought to be ostobstructive secondary to either enlarged prostate or or mass although no bladder mass seen on CT abdomen pelvis. Has fo sheila and?bilateral stent placed with no significant change and it appears that there will not be significant recovery and therefore started 03/29 on dialysis, 3rd dialysis today . Nephrology is arranging outpatient dialysis Weight loss secondary to nausea and vomiting and poor oral intake most likely secondary to poor p.o. intake as well as nausea vomiting will start him with regular diet as well as ensure supplement Zofran PRN Anemia /normocytic iron studies -probable aocd. b12 and folate seems fine h/h 7.6 /22.7( running currently between 7.5-8 range). DISPO [employer] application pending DVT prophylaxis:? compression device in light of hematuria earlier awaiting placement Attending Dr. Box Quality Stroke Does the patient have a stroke diagnosis?: No VTE Prior VTE?: No VTE Risk Level:: Medical - moderate - high VTE Device Contraindication: Treatment Not Indicated VTE Drug Contraindication: N/A - Med Ordered
--- NOTE | 2021-04-04 13:20 | MHC.CLN ---
F/U INTAKE AT MOST RECENT MEALS 75-100%. APPETITE APPEARS TO BE IMPROVING. CONTINUE 2 G SODIUM, LOW POTASSIUM, LOW PHOSPHORUS DIET FOR DIALYSIS NEEDS.
[2021-04-04 14:33] VITALS: BP 143/70; PULSE 112; RESP 18; O2SAT 100
[2021-04-04] MEDS: diphenhydrAMINE HCL 25 MG TABLET PO (14:45)
[2021-04-04 16:12] VITALS: BP 91/54; PULSE 120; RESP 16; TEMP 36.6; O2SAT 99
[2021-04-04 19:49] VITALS: BP 149/66; PULSE 106; RESP 18; TEMP 36.9; O2SAT 97
[2021-04-05] VITALS (8 sets, daily range): BP systolic 81–176; BP diastolic 53–85; PULSE 87–104; RESP 17–18; TEMP 36.1–36.9; O2SAT 96–100; BMI 21.9
[2021-04-05] MEDS: Sevelamer Carbonate Tablet 800 MG TABLET PO ×3 (10:23→18:27)
[2021-04-05] MEDS: 0.9 % Sodium Chloride Flush 3 ML SYRINGE IVFLUSH ×2 (10:23→14:30)
--- NOTE | 2021-04-05 11:30 | MHC.CM.PN ---
CM AND PROVIDER MET WITH DR TALAMANTES WHO REPORTED HIS OFFICE WAS WORKING ON GETTING PT SET UP WITH OUTPATIENT HD HE REPORTS SINCE THE PT HAS A DIAGNOSIS OF ESRD, HE WILL QUALIFY FOR MEDICARE PART B HE REPORTS DUE TO THE SHORTAGE OR STAFFING IN HEALTHCARE, IT HAS BEEN DIFFICULT TO GET PEOPLE SLOTS AT OP HD CLINICS, THEREFORE. PATIENTS ARE HAVING TO GO TO [facility] TO GET HD. DR TAALMANTES SPOKE WITH PT TO DEVELOP PLAN. CURRENT DC PLAN IS TO DC TOMORROW AFTER HD PT IS AWARE IF HIS OP HD SPOKE IS NOT SECURED BY THE NEXT DUE HD SESSION, HE SHOULD PRESENT TO [facility] TO HAVE IT DONE THERE. CM AND PROVIDER MET WITH PT TO CONFIRM UNDERSTANDING AND AGREEMENT WITH PLAN PT REPORTS HE WILL BE ABLE TO GET TRANSPORTATION AND [facility] IS THE EASIEST FOR HIM TO GET TO
--- NOTE | 2021-04-05 12:23 | P.PNIM_ITS ---
Subjective Subjective Date of Service: 04/05/21 Review of Systems Follow-up renal failure Feeling much better Having diarrhea All other systems are reviewed are negative Physical Exam Vital Signs: Vital Signs: Last Vital Signs Temp 96.9 F 04/05/21 12:00 Pulse 100 04/05/21 12:00 Resp 18 04/05/21 12:00 BP 144/68 H 04/05/21 12:00 Pulse Ox 97 04/05/21 12:00 BMI result Body Mass Index 21.9 Appearing in no acute distress lung sounds are clear to auscultation heart regular rate rhythm, clear S1, S2 positive bowel sounds, abdomen is soft, nontender Resendez in place neuro patient is alert x3, no focal deficits Objective Data Active Medications Docusate Sodium (Docusate Sodium 100 Mg Capsule) 100 mg PO DAILY PRN PRN Reason: Constipation Last Admin: 03/31/21 16:35 Dose: 100 mg Documented by: COTEMA Ondansetron HCl (Ondansetron Hcl 4 Mg/2 Ml Vial) 4 mg IVPUSH Q8H PRN PRN Reason: Nausea and Vomiting Last Admin: 03/30/21 19:37 Dose: 4 mg Documented by: SALONI Sevelamer Carbonate (Sevelamer Carbonate Tablet 800 Mg Tablet) 800 mg PO TIDWM [facility] Last Admin: 04/05/21 10:23 Dose: 800 mg Documented by: AVTAR Sodium Chloride (0.9 % Sodium Chloride Flush 3 Ml Syringe) 3 ml IVFLUSH QSHIFT [facility] Last Admin: 04/05/21 10:23 Dose: 3 ml Documented by: AVTAR Labs CBC & Chem 7: 04/04/21 05:25 04/04/21 05:25 Assessment and Plan (1) ESRD (end stage renal disease): Status: Acute Assessment and Plan: 70 yo M who reports no past medical history presents to the hospital with intractable nausea vomiting, weight loss, found to have severe kidney failure with Creatinine around 17 and bun around 200.. S/p bilateral reanal stenting with no sisngificant improment? and now has permacath and started dialyis 03/29 Diarhea. resolved No fever check cdiff, still uncollected ESRD. initially thought to be ostobstructive secondary to either enlarged prostate or or mass although no bladder mass seen on CT abdomen pelvis. Has resendez and?bilateral stent placed with no significant change and it appears that there will not be significant recovery and therefore started 03/29 on dialysis, 3rd dialysis today. Nephrology is arranging outpatient dialysis Plan is for discharge tomorrow discussed with Dr. Prater, nephrology he will set patient up with outpatient dialysis and help patient continue his insurance applications Will Dc resendez catheter Weight loss secondary to nausea and vomiting and poor oral intake most likely secondary to poor p.o. intake as well as nausea vomiting will start him with regular diet as well as ensure supplement Zofran PRN Anemia /normocytic iron studies -probable aocd. b12 and folate seems fine h/h 7.6 /22.7( running currently between 7.5-8 range). DISPO home tomorrow after dialysis DVT prophylaxis:? compression device in light of hematuria Attending Dr. Quiles Quality Stroke Does the patient have a stroke diagnosis?: No VTE Prior VTE?: No VTE Risk Level:: Medical - moderate - high VTE Device Contraindication: Treatment Not Indicated VTE Drug Contraindication: N/A - Med Ordered
--- NOTE | 2021-04-05 16:59 | P.DS_ITS ---
DS: Providers Provider Date of Service: 04/06/21 Date of admission: 03/24/21 23:09 Primary care physician: None Physician Consults: 03/24/21 23:25 Consult to Nephrology Routine Consulting Provider: [facility] Reason for consultation: DAVID Has provider been notified: No Consult to Urology Routine Consulting Provider: Herve Herrera Reason for consultation: Post obstructive uropathy Has provider been notified: Yes Attending physician on discharge: Shade Quiles Discharging clinician: Page Mak DS: Diagnosis Discharge Diagnosis (1) ESRD (end stage renal disease): Status: Acute DS: Summary Hospital Course Hospital Course: HP as per admitting providers This is a 71-year-old male who reports no past significant medical history as he has not seen a physician in many years because im a healthy man presents to the hospital with complaints nausea vomiting since August as well as progressive and significant weight loss, loss of appetite, and recently diarrhea.? Patient reports that he started having 5/7 days nausea and vomiting starting in August that progressed to loss of appetite, he tried to stay hydrated by drinking Ensure but he was in even tolerating bad, he was throwing up everything he drank and or 8.? He noticed that he started losing weight, until finally he realize he had lost 60 lb since August.? He has had loss of bladder control for over a year now, but has not noticed any him itchy urea, no urinary urgency, dysuria, or frequency given his incontinence.? He denies any abdominal pain, and he reports recent diarrhea with no black Meghan stools.? He has no hemoptysis, hematemesis but has been experiencing epistaxis recently everytime he blows his nose.? He has noticed decreased urine output in his diap ers for the past few weeks. He otherwise denies having any headache, change in vision, no chest pain, no lower extremity edema.? No numbness tingling or weakness. Arrival his vitals were significant for temp of 97.7?, heart rate of 130, respiratory rate of 21, satting 99% on room air. Labs are significant for WBC count 9.6, hemoglobin of 8.0 with no previous for comparison, sodium of 133, potassium 5.2, bicarb of 8, BUN 197, creatinine of 17.66, calcium 7.8, UA that is positive for leukocyte Estrace, WBC, and RBC, Abdominal CT shows moderate bilateral hydroureteronephrosis with uterus dilated at the level of the ureterovascular junctions.? There is a 4 mm stone in the distal right ureter however this does not appear to be obstructing as the uterus dilated to a significantly larger dimer that this stone measuring 1.4 cm.? Urinary bladder is significantly distended.? Bilateral adrenal adenomas measuring 1.9 cm on the right and 2.0 cm on the left. When inserting the Resendez catheter in the ED there was difficulty advancing it due to resistance, most likely due to enlarged prostate. Nephrology as well as Urology were consulted, patient started on bicarb drip and will be admitted for further management . ESRD. initially thought to be obstructive secondary to either enlarged prostate or or mass although no bladder mass seen on CT abdomen pelvis. Has resendez and?bilateral stent placed with no significant change and it appears that there will not be significant recovery and therefore started 03/29 on dialysis, 3rd dialysis today. Nephrology is arranging outpatient dialysis discussed with Dr. Prater, nephrology will set patient up with outpatient dialysis and help patient continue his insurance applications Continue resendez catheter and follow up with urology Weight loss secondary to nausea and vomiting and poor oral intake most likely secondary to poor p.o. intake as well as nausea vomiting Resolved, likely secondary to renal failure and urinary retension urinary retention Started on high dose flomax Resendez catheter Anemia /normocytic. secondary to renal disease iron studies -probable aocd. b12 and folate seems fine h/h 7.6 /22.7( running currently between 7.5-8 range). Time Spent with Patient Time attestation: Total time spent providing and/or coordinating discharge services: Discharge coordination time: Greater than 30 minutes Quality: Stroke Does the patient have a stroke diagnosis?: No Physical Exam Vital Signs: Vital Signs: Last Vital Signs Temp 96.9 F 04/05/21 16:00 Pulse 103 H 04/05/21 16:00 Resp 18 04/05/21 16:00 BP 176/85 H 04/05/21 16:00 Pulse Ox 100 04/05/21 16:00 BMI result Body Mass Index 21.9 Appearing in no acute distress head is normocephalic atraumatic eyes pupils are PERRLA sclera is anicteric mouth throat mucous membranes are intact and moist neck is supple no lymphadenopathy, no JVD noted lung sounds are clear to auscultation heart regular rate rhythm, clear S1, S2 positive bowel sounds, abdomen is soft, nontender neuro patient is alert x3, no focal deficits Resendez catheter present Discharge Plan Discharge Anticipated Discharge Date/Time: 04/06/21 11:45 Patient Disposition: Home, Self-Care Discharge Diagnosis: ESRD hydronephrosis Referrals: Herve Herrera MD [Physician] - 1 Week Leighton Prater MD [Physician] - 1 Week ( dialysis Sunday, Sunday and Sunday) Discharge Medications: New sevelamer carbonate 800 mg Tablet 800 mg PO TIDWM Qty: 90 RF: 0 tamsulosin 0.4 mg Capsule 0.8 mg PO DAILY Qty: 60 RF: 0 Discharge Orders: Discharge Order (Routine); Ordered 04/06/21 Ordered By: Page Mak Diet: advance to usual diet Activity on Discharge: As tolerated Stand Alone Forms: Patient Portal Discharge page Care Plan Goals: Follow with your dialysis treatment Health Concerns: End-stage renal disease Hydronephrosis Plan of Treatment: Follow-up with Dr. Prater for dialysis schedule Your last dialysis treatment was on 04/06/2021 Assessment: see discharge summary
--- NOTE | 2021-04-05 21:11 | PM.PNNEP ---
Subjective Subjective Date of Service: 04/05/21 Principal diagnosis: DAVID, HD dependent Interval history: seen and examined no new complaint or events Physical Exam Vital Signs: Vital Signs: Last Vital Signs Temp 97.4 F 04/05/21 19:44 Pulse 93 04/05/21 19:44 Resp 18 04/05/21 19:44 BP 126/63 04/05/21 19:44 Pulse Ox 98 04/05/21 19:44 BMI result Body Mass Index 21.9 Const: Other: General: AO X 3, no acute distress Resp: CTA bilateral CVS: S1,S2,RRR GI: +BS, NT, no distention Skin: No rash Neuro: motor grossly intact Psych: appropriate affect General: cooperative, healthy appearing, comfortable, no acute distress, well developed, alert and awake Orientation/consciousness: patient oriented x3 Limitations: No language barrier HENMT: Head: Yes normocephalic and Yes atraumatic Face and sinus: Yes normal facial exam Mouth: moist mucous membranes Eyes: EOM: EOMs intact bilaterally Neck: Neck: Yes normal visual inspection, Yes full ROM, Yes trachea midline and Yes supple Chest: Chest palpation & inspection: normal inspection of the chest Resp: Effort & Inspection: normal respiratory effort, able to speak in complete sentences and no respiratory distress Auscultation: diminished lung sounds Cardio: Rate: regular rate Heart sounds: S1 normal heart sound present and S2 normal heart sound present GI: Inspection: Yes normal to inspection Palpation (GI): Soft to palpation and nontender Back/Spine/Pelvis: Cervical Spine: normal cervical lordosis Thoracic/Lumbar Spine: thoracic and lumbar spine normal to inspection Skin: General skin exam: no rashes or lesions noted Neuro: General: patient oriented x3, tone normal and moves all extremities Extrem: General: Yes normal to inspection, Yes capillary refill normal and No edema Objective Data Labs CBC & Chem 7: 04/04/21 05:25 04/04/21 05:25 Microbiology Microbiology Results: Microbiology 03/24/21 19:44 Urine Catheterized - Resendez Catheter Urine Culture - Final No growth. Procedures Date of Service Date of Service: 04/05/21 Assessment & Plan Assessment and plan (1) ESRD (end stage renal disease): Status: Acute Assessment and Plan: 70 yo M who reports no past medical history presents to the hospital with intractable nausea vomiting, weight loss, found to have severe kidney failure with Creatinine around 17 and bun around 200.. S/p bilateral renal stenting with no significant improvement? and now has permacath and started dialysis 03/29 Diarhea. resolved No fever check cdiff, still uncollected ESRD. initially thought to be obstructive secondary to either enlarged prostate or or mass although no bladder mass seen on CT abdomen pelvis. Has resendez and?bilateral stent placed with no significant change and it appears that there will not be significant recovery and therefore started 03/29 on dialysis, 3rd dialysis today. Nephrology is arranging outpatient dialysis Plan is for discharge tomorrow discussed with Dr. Prater, nephrology he will set patient up with outpatient dialysis and help patient continue his insurance applications Will Dc resendez catheter Weight loss secondary to nausea and vomiting and poor oral intake most likely secondary to poor p.o. intake as well as nausea vomiting will start him with regular diet as well as ensure supplement Zofran PRN Anemia /normocytic iron studies -low given iv iron procrit. b12 and folate seems fine h/h 7.6 /22.7( running currently between 7.5-8 range). DISPO home tomorrow after dialysis ESRD from obstruction will arrange OP dialysis Time Spent With Patient Time: Total time spent is greater than 50% in coordination of care (as documented) at patient's floor/unit and/or counseling patient: Progress Note: Quality Stroke Does the patient have a stroke diagnosis?: No
[2021-04-06] VITALS (11 sets, daily range): BP systolic 86–152; BP diastolic 50–82; PULSE 83–120; RESP 17–20; TEMP 36.3–37.1; O2SAT 96–100
[2021-04-06] MEDS: 0.9 % Sodium Chloride Flush 3 ML SYRINGE IVFLUSH ×3 (00:42→16:00)
--- NOTE | 2021-04-06 00:57 | PC.NURSE ---
Pt seen in room alert and oriented, denies any pain, permacath intact on the right ACW, resendez was just removed at 1500 as reported by previous RN, pt still hasnt voided around 2200, bladder scan showed 614 ml, pt claimed that he will try to void until 12mn, hypogastric area is soft non tender, po fluids and ambulation encouraged, revisited pt at 12mn and was unable to void, explained about the possible retention after few days on resendez cath with some instances of resolving it after few times of straight cath, pt said he refused to have a straight cath , nor another resendez cath, at this time pt still denies any discomforts, Dr. Chew notifed
[2021-04-06 08:18] LABS: Hematocrit 24.5 % (42.0-52.0); Hemoglobin 7.8 g/dl (14.0-18.0); Mean Corpuscular HGB Conc 31.8 g/dl (31.0-36.0); Mean Corpuscular Hemoglobin 30.1 pg (27.0-33.0); Mean Corpuscular Volume 94.6 fL (80.0-98.0); Mean Platelet Volume 9.1 fL (9.4-12.4); Platelet Count 180 X10*3/uL (160-400); Red Blood Count 2.59 X10*6/uL (4.60-5.80); Red Cell Distribution Width 13.3 % (11.0-16.0); White Blood Count 6.7 X10*3/uL (4.8-10.8)
[2021-04-06] MEDS: Sevelamer Carbonate Tablet 800 MG TABLET PO ×3 (08:35→16:00)
[2021-04-06] MEDS: LORazepam 2 MG/ML VIAL 0.5 MG IVPUSH (11:01)
[2021-04-06] MEDS: Tamsulosin HCL 0.4 MG CAPSULE 0.8 MG PO (11:16)
--- NOTE | 2021-04-06 13:32 | MHC.CM.PN ---
Addendum entered by Zelda Lacey 04/06/21 15:58: Spoke with Page Mak RE HD update. She stated that the Pt will receive a call with his time slot from DR Prater. [facility] will be the HD center when insurance is straightened out. Discharge today as planned. Addendum entered by Zelda Lacey 04/06/21 15:47: A call was received from Shwetha at [facility]. Information has been requested and sent. They need to clear the Pt financially prior to accepting him. DC may be on Hold. notified. Original Note: IMM 04/06/21 MALE 70 dx paras Patient is discharged today to home. He will receive HD 3x a week @ [facility]. Requested information from Dr Prater RE time slot. He replied that he will be calling the Pt with the HD details. He will be going home with a resendez catheter in place. The Pt continued to retain urine 1000ML today. Pt has arranged for a ride home.
[2021-04-06] MEDS: diphenhydrAMINE HCL 25 MG TABLET PO (16:00)
--- NOTE | 2021-04-06 18:35 | PC.NURSE ---
Pt getting prepared for discharge after dialysis. Found on sitting on edge of bed with complaints of severe dizziness. Vital signs performed with Hr in 130's, BP 122/58. Provider informed.
--- NOTE | 2021-04-06 19:24 | PC.NURSE ---
Communicated with Provider, pt still dizzy, unsteady on feet, and Blood pressure down to 90/52. Provider made decision against discharge. LR bolus ordered.
--- NOTE | 2021-04-06 19:46 | PM.EVENT ---
Event Note Date of Service: 04/06/21 Event Note: pt was getting ready to being discharged when he started complaining of dizziness. this was around 6:50, just before the start of my shift. Vitals showed significant drop in BP from supine to standing with HR increasing to 130s. I examined the pt he is alert and oriented, orthostatic vitals were positive, pt sbp dropped from 100 to 67 from sitting to standing and he immediately felt dizzy. he has no neurological deficits will cancel discharge and give [address] on IV fluids
[2021-04-06] MEDS: Lactated Ringers 1,000 ML 80 ML IVCONT (19:54)
[2021-04-06] MEDS: Lactated Ringers 500 ML 999 ML IV (19:54)
[2021-04-07] VITALS (7 sets, daily range): BP systolic 81–140; BP diastolic 49–77; PULSE 92–116; RESP 18; TEMP 36.3–37.1; O2SAT 96–99
[2021-04-07] MEDS: 0.9 % Sodium Chloride 1,000 ML 999 ML IV (00:31)
[2021-04-07] MEDS: 0.9 % Sodium Chloride Flush 3 ML SYRINGE IVFLUSH ×2 (01:09→20:19)
[2021-04-07] MEDS: Lactated Ringers 1,000 ML 80 ML IVCONT (06:07)
[2021-04-07 06:23] LABS: Anion Gap 13 (12-20); Blood Urea Nitrogen 27 mg/dL (9-16); Calcium 7.6 mg/dL (8.4-10.2); Carbon Dioxide 19 mmol/L (22-29); Chloride 106 mmol/L (96-108); Creatinine Clr Calc Pharmacy 15.6; Estimated Glomerular Filt Rate 12; Glucose Random 103 mg/dL (60-115); Potassium 3.7 mmol/L (3.3-5.1); Sodium 134 mmol/L (135-145)
[2021-04-07] MEDS: Sevelamer Carbonate Tablet 800 MG TABLET PO ×2 (09:34→16:59)
--- NOTE | 2021-04-07 09:53 | MHC.CLN ---
F/U INTAKE CONTINUES GOOD, WITH MEALS 75-100%. CONTINUE 2 G SODIUM, LOW POTASSIUM, LOW PHOSPHORUS DIET FOR DIALYSIS NEEDS. WEIGHT DISCREPANCY NOTED. 04/05 WEIGHT=79.5 KG. PRIOR WEIGHTS 03/25 THROUGH 04/04 IN 90 KG RANGE. SOME WEIGHT FLUCTUATION ANTICIPATED WITH HEMODIALYSIS. CONTINUE TO FOLLOW.
--- NOTE | 2021-04-07 11:31 | PM.PNNEP ---
Subjective Subjective Date of Service: 04/12/21 Principal diagnosis: DAVID, HD dependent Interval history: seen and examined no new complaint or events Physical Exam Vital Signs: Vital Signs: Last Vital Signs Temp 97.4 F 04/07/21 08:00 Pulse 93 04/07/21 10:49 Resp 18 04/07/21 08:00 BP 140/77 H 04/07/21 10:49 Pulse Ox 99 04/07/21 08:00 BMI result Body Mass Index 21.9 Const: General: cooperative Orientation/consciousness: oriented to person and oriented to place Resp: Auscultation: clear to auscultation bilaterally Cardio: Jugular venous distension: no JVD Palpation: no palpable S3 Heart sounds: no gallops GI: Inspection: Yes normal to inspection Palpation (GI): Soft to palpation and nontender Skin: General skin exam: no rashes or lesions noted Neuro: General: oriented to person and oriented to place Motor exam (neuro): no asterixis Objective Data Labs CBC & Chem 7: 04/11/21 05:36 04/11/21 05:36 Labs: Laboratory Results - last 24 hr 04/07/21 05:35 Sodium 134 L Potassium 3.7 Chloride 106 Carbon Dioxide 19 L Anion Gap 13 BUN 27 H D Creatinine 4.80 H* Estim Creat Clear Calc 15.6 Estimated GFR 12 Random Glucose 103 Calcium 7.6 L Microbiology Microbiology Results: Microbiology 03/24/21 19:44 Urine Catheterized - Grijalva Catheter Urine Culture - Final No growth. Procedures Date of Service Date of Service: 04/07/21 Assessment & Plan Assessment and plan (1) ESRD (end stage renal disease): Status: Acute Assessment and Plan: CKD 5 Dialysis dependent No s/s of uremia Hypotension Resolved with IVF Can DC IVF DC Planning Time Spent With Patient Time: Total time spent is greater than 50% in coordination of care (as documented) at patient's floor/unit and/or counseling patient: Progress Note: Quality Stroke Does the patient have a stroke diagnosis?: No
[2021-04-07 12:40] LABS: Appearance Urine CLEAR; Color Urine YELLOW; Glucose Urine UA NEG (NEG); Leukocyte Esterase Urine 3+ (NEG); Nitrite Urine NEG (NEG); PH 6.5 (5.0-8.0); Specific Gravity - Urine <= 1.005 (1.005-1.025); UACC Culture Trigger YES; Urine Blood 2+ (NEG); Urine Ketones NEG (NEG); Urine Protein 2+ MG/DL (NEG-TRACE)
[2021-04-07 13:05] LABS: Squamous Epithelial Cell Urine TRACE /LPF
[2021-04-07 13:07] LABS: Bacteria Urine TRACE /LPF; RBC Urine 0-2 /HPF (0)
--- NOTE | 2021-04-07 13:57 | MHC.CM.PN ---
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 patient with per documentation end stage renal disease and has been on hemodialysi .. barrier-patient has medicare part a but had cancelled his medicar part b secondary to not being able to afford the part b medicare, patient has tried to apply for medicare part b -on the phone and by computer, but will not accept application iuntil after apr 09 2020. [facility] APPLICATION HAS BEEN STARTED BY [facility] SPOKE WITH RENAL DR CHUN PATIENT WOULD NOT BE ABLE TO BE DISCHARGED WITHOUT MEDCARIE PART B, IF HE WAS DISCHARGED HE COULD COME TO [facility] ER WHEN FEELING POORLY AND IN NEED OF HEMODIALYSIS , HE REPORTED HE WOULD HAVE A LONG EMILY IN THE ER AND THEN COULD BE GIVEN HEMODIALYSIS WHILE IN THE ER BUT COULD BE 1-1-1/2 DAY AND HE WOULD BE RESPONSIBLE FOR FOR SELF PAYEMENTS OF THIS OUTPATIENT SERVICES , RENAL PHYSICIAN SPOKE WITH HOSPITLAIST AND DESSCISION IS TO KEEP PATIENT HERE UNTILM HE CAN APPLY FOR MEDICARE PART B WILL FOLLOW UP ON SUNDAY WITH [facility] . PATIENT IS AWARE OF THIS
--- NOTE | 2021-04-07 15:19 | HO.PM.IMPN ---
Subjective Subjective Date of Service: 04/07/21 Interval History: seen and examined this morning plan to d/c yesterday, but patient became dizzy and hypotensive received fluid overnight. bp again low this morning and had episode of dizziness Review of Systems Review of Systems: Yes all other systems are reviewed and are negative Constitutional Constitutional: Denies chills and Denies fever(s) Cardiovascular Cardiovascular: Denies chest pain Respiratory Respiratory: Denies cough Gastrointestinal Gastrointestinal: Denies abdominal pain Physical Exam Vital Signs: Vital Signs: Last Vital Signs Temp 97.9 F 04/07/21 14:55 Pulse 101 H 04/07/21 14:55 Resp 18 04/07/21 14:55 BP 106/56 L 04/07/21 14:55 Pulse Ox 98 04/07/21 14:55 BMI result Body Mass Index 21.9 Const: General: healthy appearing, comfortable, alert and awake Nutritional Appearance: well nourished Orientation/consciousness: patient oriented x3 HENMT: Head: Yes normocephalic and Yes atraumatic Eyes: Sclerae: sclerae normal Resp: Effort & Inspection: normal respiratory effort and no respiratory distress Cardio: Rate: regular rate Rhythm: regular rhythm GI: Palpation (GI): Soft to palpation and nontender Neuro: General: patient oriented x3 Cranial nerves: Yes CN's II-XII intact bilaterally and Yes Bilaterally intact EOM present Objective Data Active Medications Docusate Sodium (Docusate Sodium 100 Mg Capsule) 100 mg PO DAILY PRN PRN Reason: Constipation Last Admin: 03/31/21 16:35 Dose: 100 mg Documented by: COTKERRI Lactated Ringer's (Lr) 1,000 mls @ 80 mls/hr IVCONT .[id number] [facility] Last Admin: 04/07/21 06:07 Dose: 80 mls/hr Documented by: PARTH Ondansetron HCl (Ondansetron Hcl 4 Mg/2 Ml Vial) 4 mg IVPUSH Q8H PRN PRN Reason: Nausea and Vomiting Last Admin: 03/30/21 19:37 Dose: 4 mg Documented by: SALONI Sevelamer Carbonate (Sevelamer Carbonate Tablet 800 Mg Tablet) 800 mg PO TIDWM [facility] Last Admin: 04/07/21 14:04 Dose: Not Given Documented by: KARYN Non-Admin Reason: Patient Asleep Sodium Chloride (0.9 % Sodium Chloride Flush 3 Ml Syringe) 3 ml IVFLUSH QSHIFT DAWN Last Admin: 04/07/21 09:35 Dose: Not Given Documented by: KARYN Non-Admin Reason: IV Running Labs CBC & Chem 7: 04/06/21 08:02 04/07/21 05:35 Labs: Laboratory Results - last 24 hr 04/07/21 04/07/21 05:35 11:15 Anion Gap 13 Estim Creat Clear Calc 15.6 Estimated GFR 12 Random Glucose 103 Calcium 7.6 L Urine Color YELLOW Urine Appearance CLEAR Urine pH 6.5 Ur Specific [place] <= 1.005 Urine Protein 2+ H Urine Glucose (UA) NEG Urine Ketones NEG Urine Blood 2+ H Urine Nitrite NEG Ur Leukocyte Esterase 3+ H Urine RBC 0-2 Urine WBC 10-14 H Ur Squamous Epith Cells TRACE Urine Bacteria TRACE Assessment and Plan (1) ESRD (end stage renal disease): Status: Acute (2) Urinary retention with incomplete bladder emptying: Status: Acute Assessment and Plan: 70 yo M who reports no past medical history presents to the hospital with intractable nausea vomiting, weight loss, found to have severe kidney failure with Creatinine around 17 and bun around 200.. S/p bilateral reanal stenting with no sisngificant improment? and now has permacath and started dialyis 03/29 orthostatic hypotension likely multifactorial from HD and flomax s/p IVF will d/c flomax monitor bp closely urinary retention resendez catheter in place outpatient follow up with urology ESRD. initially thought to be post obstructive secondary to either enlarged prostate or or mass although no bladder mass seen on CT abdomen pelvis. Has resendez and?bilateral stent placed with no significant change and it appears that there will not be significant recovery and therefore started 03/29 on dialysis. Plan for dialysis tomorrow Weight loss secondary to nausea and vomiting and poor oral intake will start him with regular diet as well as ensure supplement Zofran PRN Diarhea. resolved No fever check cdiff, still uncollected Anemia /normocytic iron studies -probable aocd. b12 and folate seems fine H/H frandy DVT prophylaxis:? compression device Attending Dr. Quiles Quality Stroke Does the patient have a stroke diagnosis?: No VTE Prior VTE?: No VTE Risk Level:: Medical - moderate - high VTE Device Contraindication: Treatment Not Indicated VTE Drug Contraindication: N/A - Med Ordered
--- NOTE | 2021-04-07 21:33 | P.EN_ITS ---
Event Note Date of Service: 04/07/21 Event Note: Pt having urinary retention. 800 cc on bladder scan. pt refusing f oley catheter unless placed by urology. pt HDS, not uncomfortable. 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 will continue with serial bladder scan
--- NOTE | 2021-04-07 21:33 | PM.EVENT ---
Event Note Date of Service: 04/07/21 Event Note: Pt having urinary retention. 800 cc on bladder scan. pt refusing resendez catheter unless placed by urology. pt HDS, not uncomfortable. 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 will continue with serial bladder scan
[2021-04-07] MEDS: Tamsulosin HCL 0.4 MG CAPSULE PO (21:53)
[2021-04-08] VITALS (9 sets, daily range): BP systolic 108–174; BP diastolic 51–84; PULSE 92–111; RESP 18; TEMP 36.2–36.8; O2SAT 98–99
--- NOTE | 2021-04-08 02:52 | PC.NURSE ---
Earlier in the evening, pt stated his f/c came out. Pt refused to have another catheter place unless it was by a urologist in the am. Bladder scan done, with 814 at 21:16. Dr Chew notified. Flomax ordered and given. Asked to check bladder scan around midnight - checked with 934. Pt asymptomatic. notified. No new orders to rescan. Will continue to assess patient for discomfort. Pt denies pain/discomfort and is sleeping comfortably. Will continue to monitor,
[2021-04-08 05:35] LABS: MANUAL DIFF FLAG NO
[2021-04-08 05:53] LABS: Basophils Percent Auto 0.4 % (0-2); Eosinophils Absolute Auto 0.3 X10*3/uL (0.0-0.4); Imm Gran Abs Auto 0.02 X10*3/uL (0.00-0.03); Imm Gran Pct Auto 0.4 % (0.0-0.4); Mean Corpuscular Hemoglobin 30.7 pg (27.0-33.0); Mean Corpuscular Volume 95.8 fL (80.0-98.0); Mean Platelet Volume 9.2 fL (9.4-12.4); Monocytes Absolute Auto 0.7 X10*3/uL (0.1-1.2); Monocytes Percent Auto 14.8 % (2-11); Neutrophils Absolute Auto 2.7 x10*3/uL (2.0-8.3); Neutrophils Percent Auto 56.4 % (45-73); Platelet Count 159 X10*3/uL (160-400); Red Blood Count 2.12 X10*6/uL (4.60-5.80); Red Cell Distribution Width 13.2 % (11.0-16.0); White Blood Count 4.7 X10*3/uL (4.8-10.8)
[2021-04-08 06:05] LABS: Anion Gap 10 (12-20); Blood Urea Nitrogen 41 mg/dL (9-16); Calcium 7.8 mg/dL (8.4-10.2); Carbon Dioxide 23 mmol/L (22-29); Chloride 107 mmol/L (96-108); Creatinine Clr Calc Pharmacy 10.6; Estimated Glomerular Filt Rate 8; Glucose Random 94 mg/dL (60-115); Potassium 3.9 mmol/L (3.3-5.1); Sodium 136 mmol/L (135-145)
[2021-04-08 06:10] LABS: Hematocrit 20.3 % (42.0-52.0); Hemoglobin 6.5 g/dl (14.0-18.0)
--- NOTE | 2021-04-08 06:10 | PC.NURSE ---
Critical H&H 6.5/.3 - Dr Cornelius notifed. No new orders. Will pass along in shift report.
[2021-04-08] MEDS: Sevelamer Carbonate Tablet 800 MG TABLET PO ×3 (07:53→18:21)
[2021-04-08] MEDS: 0.9 % Sodium Chloride Flush 3 ML SYRINGE IVFLUSH ×3 (07:56→20:36)
--- NOTE | 2021-04-08 09:58 | P.PNIM_ITS ---
Subjective Subjective Date of Service: 04/08/21 Interval History: seen and examined this morning dipti came out overnight, had urinary retention and was resumed on flomax feeling somewhat better this morning, still a little dizzy with standing Review of Systems Review of Systems: Yes all other systems are reviewed and are negative Constitutional Constitutional: Denies chills and Denies fever(s) Cardiovascular Cardiovascular: Denies chest pain Respiratory Respiratory: Denies cough Gastrointestinal Gastrointestinal: Denies abdominal pain Physical Exam Verdana 4l Vital Signs: Verdana 4d Verdana 4d Vital Signs: Verdana 4d Verdana 4Bd Last Vital Signs Verdana 4d Tool And Die Maker Level Five New 4d Tool And Die Maker Level Five New 4d Temp 97.3 F 04/08/21 08:00 Tool And Die Maker Level Five New 4d Pulse 96 04/08/21 08:00 Tool And Die Maker Level Five NewNew 4d Resp 18 04/08/21 08:00 BP 136/69 04/08/21 08:00 Pulse Ox 98 04/08/21 08:00 BMI result Body Mass Index 21.9 Const: General: healthy appearing, comfortable, alert and awake Nutritional Appearance: well nourished Orientation/consciousness: patient oriented x3 HENMT: Head: Yes normocephalic and Yes atraumatic Eyes: Sclerae: sclerae normal Resp: Effort & Inspection: normal respiratory effort and no respiratory distress Cardio: Rate: regular rate Rhythm: regular rhythm GI: Palpation (GI): Soft to palpation and nontender Neuro: General: patient oriented x3 Cranial nerves: Yes CN's II-XII intact bilaterally and Yes Bilaterally intact EOM present Objective Data Active Medications Docusate Sodium (Docusate Sodium 100 Mg Capsule) 100 mg PO DAILY PRN PRN Reason: Constipation Last Admin: 03/31/21 16:35 Dose: 100 mg Documented by: BOLIVAR Ondansetron HCl (Ondansetron Hcl 4 Mg/2 Ml Vial) 4 mg IVPUSH Q8H PRN PRN Reason: Nausea and Vomiting Last Admin: 03/30/21 19:37 Dose: 4 mg Documented by: SALONI Sevelamer Carbonate (Sevelamer Carbonate Tablet 800 Mg Tablet) 800 mg PO TIDWM [facility] Last Admin: 04/08/21 07:53 Dose: 800 mg Documented by: KARYN Sodium Chloride (0.9 % Sodium Chloride Flush 3 Ml Syringe) 3 ml IVFLUSH QSHIFT [facility] Last Admin: 04/08/21 07:56 Dose: 3 ml Documented by: KARYN Tamsulosin HCl (Tamsulosin Hcl 0.4 Mg Capsule) 0.4 mg PO BEDTIME [facility] Last Admin: 04/07/21 21:53 Dose: 0.4 mg Documented by: JOSÉ MANUEL Labs CBC & Chem 7: 04/08/21 05:27 04/08/21 05:27 Labs: Laboratory Results - last 24 hr 04/07/21 04/08/21 04/08/21 11:15 05:27 05:27 MCV 95.8 MCH 30.7 MCHC 32.0 RDW 13.2 Plt Count 159 L MPV 9.2 L Immature Gran % (Auto) 0.4 Neut % (Auto) 56.4 Lymph % (Auto) 21.0 [place] % (Auto) 14.8 H Eos % (Auto) 7.0 H Baso % (Auto) 0.4 Lymph # (Auto) 1.0 L [place] # (Auto) 0.7 Eos # (Auto) 0.3 Baso # (Auto) 0.0 Abs Immat Gran (auto) 0.02 Absolute Neuts (auto) 2.7 Absolute Nucleated RBC 0.000 Nucleated RBC % (auto) 0.0 Anion Gap 10 L Estim Creat Clear Calc 10.6 Estimated GFR 8 Random Glucose 94 Calcium 7.8 L Urine Color YELLOW Urine Appearance CLEAR Urine pH 6.5 Ur Specific [place] <= 1.005 Urine Protein 2+ H Urine Glucose (UA) NEG Urine Ketones NEG Urine Blood 2+ H Urine Nitrite NEG Ur Leukocyte Esterase 3+ H Urine RBC 0-2 Urine WBC 10-14 H Ur Squamous Epith Cells TRACE Urine Bacteria TRACE Blood Type Antibody Screen Crossmatch 04/08/21 08:22 MCV MCH MCHC RDW Plt Count MPV Immature Gran % (Auto) Neut % (Auto) Lymph % (Auto) [place] % (Auto) Eos % (Auto) Baso % (Auto) Lymph # (Auto) [place] # (Auto) Eos # (Auto) Baso # (Auto) Abs Immat Gran (auto) Absolute Neuts (auto) Absolute Nucleated RBC Nucleated RBC % (auto) Anion Gap Estim Creat Clear Calc Estimated GFR Random Glucose Calcium Urine Color Urine Appearance Urine pH Ur Specific [place] Urine Protein Urine Glucose (UA) Urine Ketones Urine Blood Urine Nitrite Ur Leukocyte Esterase Urine RBC Urine WBC Ur Squamous Epith Cells Urine Bacteria Blood Type O Positive Antibody Screen NEGATIVE Crossmatch See Detail Assessment and Plan (1) Urinary retention with incomplete bladder emptying: Status: Acute (2) Anemia: Status: Acute (3) ESRD (end stage renal disease): Status: Acute Assessment and Plan: 70 yo M who reports no past medical history presents to the hospital with intractable nausea vomiting, weight loss, found to have severe kidney failure with Creatinine around 17 and bun around 200.. S/p bilateral reanal stenting with no sisngificant improment? and now has permacath and started dialyis 03/29 orthostatic hypotension likely multifactorial from HD and flomax s/p IVF monitor bp closely Normocytic anemia iron studies -probable aocd. b12 and folate wnl H/H down to 6.5/20.3, will transfuse 1 unit urinary retention resendez catheter came out overnight flomax resumed urology consult Diarrhea. No fever check cdiff, still uncollected ESRD. initially thought to be post obstructive secondary to either enlarged prostate or mass although no bladder mass seen on CT abdomen pelvis. Has resendez and?bilateral stent placed with no significant change and it appears that there will not be significant recovery and therefore started 03/29 on dialysis. Plan for dialysis today Needs insurance finalized to receive outpatient dialysis nausea and vomiting and poor oral intake resolve, Zofran PRN DVT prophylaxis:? compression device Attending Dr. Box Quality Stroke Does the patient have a stroke diagnosis?: No VTE Prior VTE?: No VTE Risk Level:: Medical - moderate - high VTE Device Contraindication: Treatment Not Indicated VTE Drug Contraindication: N/A - Med Ordered
--- NOTE | 2021-04-08 14:48 | MHC.CM.PN ---
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 His [employer] application was approved. He now has [employer] Standard effective 03/09/2021. His ID#[id number]. HE WILL ATILL NEED TO APPLY FOR [employer]Are part b , which he will try to complte sat sunday will follow up with renal on sunday for hemodialysis placement
--- NOTE | 2021-04-08 14:58 | PM.UROPN ---
Subjective Subjective Date of Service: 04/08/21 Interval history: Grijalva catheter it been removed Now suffering from retention again Has had creatinine 7.0 with dialysis Still making urine substantially Grijalva catheter placed at bedside with 700 cc residual Can use cap on catheter and empty every 3-4 hours. Physical Exam Vital Signs: Vital Signs: Last Vital Signs Temp 97.2 F 04/08/21 11:30 Pulse 92 04/08/21 11:30 Resp 18 04/08/21 11:30 BP 152/78 H 04/08/21 13:51 Pulse Ox 98 04/08/21 08:00 BMI result Body Mass Index 21.9 Const: General: cooperative, healthy appearing, comfortable and no acute distress Orientation/consciousness: patient oriented x3 HENMT: Face and sinus: Yes normal facial exam Mouth: moist mucous membranes Neck: Neck: Yes normal visual inspection, Yes full ROM and Yes trachea midline Chest: Chest palpation & inspection: normal inspection of the chest Resp: Effort & Inspection: normal respiratory effort, able to speak in complete sentences and no respiratory distress GI: Inspection: Yes normal to inspection Back/Spine/Pelvis: Cervical Spine: normal cervical lordosis Thoracic/Lumbar Spine: thoracic and lumbar spine normal to inspection Skin: General skin exam: no rashes or lesions noted Neuro: General: patient oriented x3, tone normal and moves all extremities Extrem: General: Yes normal to inspection and Yes capillary refill normal Urology Results Labs CBC & Chem 7: 04/08/21 05:27 04/08/21 05:27 Labs: Laboratory Results - last 24 hr 04/08/21 04/08/21 04/08/21 05:27 05:27 08:22 WBC 4.7 L RBC 2.12 L Hgb 6.5 L* Hct 20.3 L* MCV 95.8 MCH 30.7 MCHC 32.0 RDW 13.2 Plt Count 159 L MPV 9.2 L Immature Gran % (Auto) 0.4 Neut % (Auto) 56.4 Lymph % (Auto) 21.0 [place] % (Auto) 14.8 H Eos % (Auto) 7.0 H Baso % (Auto) 0.4 Lymph # (Auto) 1.0 L [place] # (Auto) 0.7 Eos # (Auto) 0.3 Baso # (Auto) 0.0 Abs Immat Gran (auto) 0.02 Absolute Neuts (auto) 2.7 Absolute Nucleated RBC 0.000 Nucleated RBC % (auto) 0.0 Sodium 136 Potassium 3.9 Chloride 107 Carbon Dioxide 23 Anion Gap 10 L BUN 41 H D Creatinine 7.03 H* Estim Creat Clear Calc 10.6 Estimated GFR 8 Random Glucose 94 Calcium 7.8 L Blood Type O Positive Antibody Screen NEGATIVE Crossmatch See Detail Urology Procedures Catheter Insertion (Urinary) Date of insertion: 04/08/21 Replacement of catheter present on admission: No Reason for placing: Acute urinary retention Estimated amount of urine (mLs): 700 Antiseptic solution prep: Povidone-Iodine Size (Slovenian): 16 Catheter balloon size (mL): 10 Results: successfully catheterized-immediate flow Procedure performed: without complications Progress Note: A&P Assessment and plan (1) Urinary retention with incomplete bladder emptying: Status: Acute Assessment and Plan: Continue with catheter emptying bladder every 3-4 hours with cap Fall Risk Details Current Medications: Current Medications Docusate Sodium (Docusate Sodium 100 Mg Capsule) 100 mg PO DAILY PRN PRN Reason: Constipation Last Admin: 03/31/21 16:35 Dose: 100 mg Documented by: Ondansetron HCl (Ondansetron Hcl 4 Mg/2 Ml Vial) 4 mg IVPUSH Q8H PRN PRN Reason: Nausea and Vomiting Last Admin: 03/30/21 19:37 Dose: 4 mg Documented by: Sevelamer Carbonate (Sevelamer Carbonate Tablet 800 Mg Tablet) 800 mg PO TIDWM [facility] Last Admin: 04/08/21 13:48 Dose: 800 mg Documented by: Sodium Chloride (0.9 % Sodium Chloride Flush 3 Ml Syringe) 3 ml IVFLUSH QSHIFT [facility] Last Admin: 04/08/21 07:56 Dose: 3 ml Documented by: Tamsulosin HCl (Tamsulosin Hcl 0.4 Mg Capsule) 0.4 mg PO BEDTIME [facility] Last Admin: 04/07/21 21:53 Dose: 0.4 mg Documented by: Time Spent With Patient Time: Total time spent is greater than 50% in coordination of care (as documented) at patient's floor/unit and/or counseling patient: Time with patient: less than 15 minutes Progress Note: Quality Stroke Does the patient have a stroke diagnosis?: No
--- NOTE | 2021-04-08 15:21 | MHC.CLN ---
F/U CONTINUES WITH USUALLY GOOD/EXCELLENT INTAKE. RD TO FOLLOW WEEKLY.
--- NOTE | 2021-04-08 18:51 | P.PNNP_ITS ---
Subjective Subjective Date of Service: 04/12/21 Principal diagnosis: DAVID, HD dependent Interval history: seen and examined this morning dipti came out overnight, had urinary retention and was resumed on flomax feeling somewhat better this morning, still a little dizzy with standing Physical Exam Vital Signs: Vital Signs: Last Vital Signs Temp 98 F 04/08/21 16:00 Pulse 111 H 04/08/21 16:00 Resp 18 04/08/21 16:00 BP 133/67 04/08/21 16:00 Pulse Ox 99 04/08/21 16:00 BMI result Body Mass Index 21.9 Const: General: cooperative Orientation/consciousness: oriented to person and oriented to place Resp: Auscultation: clear to auscultation bilaterally Cardio: Jugular venous distension: no JVD Palpation: no palpable S3 Heart sounds: no gallops GI: Inspection: Yes normal to inspection Palpation (GI): Soft to palpation and nontender Skin: General skin exam: no rashes or lesions noted Neuro: General: oriented to person and oriented to place Motor exam (neuro ): no asterixis Objective Data Labs CBC & Chem 7: 04/11/21 05:36 04/11/21 05:36 Labs: Laboratory Results - last 24 hr 04/08/21 04/08/21 04/08/21 05:27 05:27 08:22 WBC 4.7 L RBC 2.12 L Hgb 6.5 L* Hct 20.3 L* MCV 95.8 MCH 30.7 MCHC 32.0 RDW 13.2 Plt Count 159 L MPV 9.2 L Immature Gran % (Auto) 0.4 Neut % (Auto) 56.4 Lymph % (Auto) 21.0 [place] % (Auto) 14.8 H Eos % (Auto) 7.0 H Baso % (Auto) 0.4 Lymph # (Auto) 1.0 L [place] # (Auto) 0.7 Eos # (Auto) 0.3 Baso # (Auto) 0.0 Abs Immat Gran (auto) 0.02 Absolute Neuts (auto) 2.7 Absolute Nucleated RBC 0.000 Nucleated RBC % (auto) 0.0 Sodium 136 Potassium 3.9 Chloride 107 Carbon Dioxide 23 Anion Gap 10 L BUN 41 H D Creatinine 7.03 H* Estim Creat Clear Calc 10.6 Estimated GFR 8 Random Glucose 94 Calcium 7.8 L Blood Type O Positive Antibody Screen NEGATIVE Crossmatch See Detail Microbiology Microbiology Results: Microbiology 04/07/21 00:00 Urine Catheterized - Grijalva Catheter Urine Culture - Final No growth. 03/24/21 19:44 Urine Catheterized - Grijalva Catheter Urine Culture - Final No growth. Procedures Date of Service Date of Service: 04/08/21 Assessment & Plan Assessment and plan (1) ESRD (end stage renal disease): Status: Acute Assessment and Plan: CKD 5 Dialysis dependent No s/s of uremia Hypotension Resolved with IVF Can DC IVF DC Planning Time Spent With Patient Time: Total time spent is greater than 50% in coordination of care (as documented) at patient's floor/unit and/or counseling patient: Progress Note: Quality Stroke Does the patient have a stroke diagnosis?: No
[2021-04-08] MEDS: Tamsulosin HCL 0.4 MG CAPSULE PO (20:34)
[2021-04-09] VITALS (7 sets, daily range): BP systolic 111–164; BP diastolic 55–80; PULSE 85–103; RESP 17–18; TEMP 36.2–36.7; O2SAT 98–100
[2021-04-09] MEDS: Sevelamer Carbonate Tablet 800 MG TABLET PO ×3 (08:16→16:00)
[2021-04-09] MEDS: 0.9 % Sodium Chloride Flush 3 ML SYRINGE IVFLUSH ×3 (08:18→21:09)
[2021-04-09 09:09] LABS: MANUAL DIFF FLAG NO
[2021-04-09 09:10] LABS: Basophils Percent Auto 0.6 % (0-2); Eosinophils Absolute Auto 0.4 X10*3/uL (0.0-0.4); Eosinophils Percent Auto 7.2 % (0-4); Hematocrit 23.9 % (42.0-52.0); Hemoglobin 7.7 g/dl (14.0-18.0); Imm Gran Abs Auto 0.02 X10*3/uL (0.00-0.03); Imm Gran Pct Auto 0.4 % (0.0-0.4); Lymphocytes Absolute Auto 0.9 X10*3/uL (1.2-4.9); Lymphocytes Percent Auto 17.4 % (20-40); Mean Corpuscular HGB Conc 32.2 g/dl (31.0-36.0); Mean Corpuscular Volume 96.4 fL (80.0-98.0); Mean Platelet Volume 9.1 fL (9.4-12.4); Monocytes Absolute Auto 0.7 X10*3/uL (0.1-1.2); Monocytes Percent Auto 14.8 % (2-11); Neutrophils Percent Auto 59.6 % (45-73); Platelet Count 156 X10*3/uL (160-400); Red Blood Count 2.48 X10*6/uL (4.60-5.80); Red Cell Distribution Width 13.7 % (11.0-16.0)
[2021-04-09 09:39] LABS: Anion Gap 12 (12-20); Blood Urea Nitrogen 27 mg/dL (9-16); Calcium 7.7 mg/dL (8.4-10.2); Carbon Dioxide 23 mmol/L (22-29); Chloride 106 mmol/L (96-108); Estimated Glomerular Filt Rate 11; Glucose Random 93 mg/dL (60-115); Potassium 3.8 mmol/L (3.3-5.1); Sodium 137 mmol/L (135-145)
--- NOTE | 2021-04-09 11:04 | P.PNIM_ITS ---
Subjective Subjective Date of Service: 04/09/21 Interval History: seen and examined this morning follow up for renal failure, orthostatic hypotension, anemia, urinary retention resendez placed by urology yesterday less dizziness Review of Systems Review of Systems: Yes all other systems are reviewed and are negative Constitutional Constitutional: Denies chills and Denies fever(s) Cardiovascular Cardiovascular: Denies chest pain Respiratory Respiratory: Denies cough Gastrointestinal Gastrointestinal: Denies abdominal pain Physical Exam Verdana 4l Vital Signs: Verdana 4d Verdana 4d Vital Signs: Verdana 4d Verdana 4Bd Last Vital Signs Verdana 4d Museum Director New 4d Museum Director New 4d Temp 98.0 F 04/09/21 08:00 Museum Director New 4d Pulse 103 H 04/09/21 08:05 Museum Director NewNew 4d Resp 18 04/09/21 08:00 BP 164/80 H 04/09/21 08:05 Pulse Ox 99 04/09/21 08:00 BMI result Body Mass Index 21.9 Const: General: healthy appearing, comfortable, alert and awake Nutritional Appearance: well nourished Orientation/consciousness: patient oriented x3 HENMT: Head: Yes normocephalic and Yes atraumatic Eyes: Sclerae: sclerae normal Pupils: Equal, round and reactive pupils present Resp: Effort & Inspection: normal respiratory effort and no respiratory distress Cardio: Rate: regular rate Rhythm: regular rhythm GI: Inspection: No distended Palpation (GI): Soft to palpation and nontender : Other: resendez in place, draining clear yellow urine Neuro: General: patient oriented x3 Cranial nerves: Yes CN's II-XII intact bilateral ly, Yes Equal, round and reactive pupils present and Yes Bilaterally intact EOM present Extrem: General: Yes no pedal edema Objective Data Active Medications Docusate Sodium (Docusate Sodium 100 Mg Capsule) 100 mg PO DAILY PRN PRN Reason: Constipation Last Admin: 03/31/21 16:35 Dose: 100 mg Documented by: COTEMA Multi-Ingred Cream/Lotion/Oil/Oint (Mineral Oil/Petrolatum,White 106 Gm Tube) 1 appl TOPICAL BEDTIME PRN; Protocol PRN Reason: dry skin Ondansetron HCl (Ondansetron Hcl 4 Mg/2 Ml Vial) 4 mg IVPUSH Q8H PRN PRN Reason: Nausea and Vomiting Last Admin: 03/30/21 19:37 Dose: 4 mg Documented by: SALONI Sevelamer Carbonate (Sevelamer Carbonate Tablet 800 Mg Tablet) 800 mg PO TIDWM [facility] Last Admin: 04/09/21 08:16 Dose: 800 mg Documented by: CARLIE Sodium Chloride (0.9 % Sodium Chloride Flush 3 Ml Syringe) 3 ml IVFLUSH QSHIFT [facility] Last Admin: 04/09/21 08:18 Dose: 3 ml Documented by: CARLIE Tamsulosin HCl (Tamsulosin Hcl 0.4 Mg Capsule) 0.4 mg PO BEDTIME [facility] Last Admin: 04/08/21 20:34 Dose: 0.4 mg Documented by: ANTOIC Labs CBC & Chem 7: 04/09/21 08:38 04/09/21 08:38 Labs: Laboratory Results - last 24 hr 04/08/21 04/09/21 04/09/21 08:22 08:38 08:38 MCV 96.4 MCH 31.0 MCHC 32.2 RDW 13.7 Plt Count 156 L MPV 9.1 L Immature Gran % (Auto) 0.4 Neut % (Auto) 59.6 Lymph % (Auto) 17.4 L [place] % (Auto) 14.8 H Eos % (Auto) 7.2 H Baso % (Auto) 0.6 Lymph # (Auto) 0.9 L [place] # (Auto) 0.7 Eos # (Auto) 0.4 Baso # (Auto) 0.0 Abs Immat Gran (auto) 0.02 Absolute Neuts (auto) 3.0 Absolute Nucleated RBC 0.000 Nucleated RBC % (auto) 0.0 Anion Gap 12 Estim Creat Clear Calc 14.0 Estimated GFR 11 Random Glucose 93 Calcium 7.7 L Crossmatch See Detail Microbiology Microbiology Results: Microbiology 04/07/21 00:00 Urine Culture - Final Urine Catheterized - Resendez Catheter No growth. Assessment and Plan (1) ESRD (end stage renal disease): Status: Acute (2) Urinary retention with incomplete bladder emptying: Status: Acute (3) Anemia: Status: Acute Assessment and Plan: 70 yo M who reports no past medical history presents to the hospital with intractable nausea vomiting, weight loss, found to have severe kidney failure with Creatinine around 17 and bun around 200.. S/p bilateral reanal stenting with no significant improvement? and now has permacath and started dialysis 03/29 orthostatic hypotension likely multifactorial from HD and flomax s/p IVF improving, but orthostatics still positive, will d/c flomax Normocytic anemia iron studies -probable aocd. s/p 1 unit RBC 04/08 b12 and folate wnl. stool occult negative follow cbc urinary retention resendez catheter replace by urology 04/08 flomax d/c due to orthostatic hypotension outpatient follow up Diarrhea. No fever. improving check cdiff, still uncollected ESRD. initially thought to be post obstructive secondary to either enlarged prostate or mass although no bladder mass seen on CT abdomen pelvis. Has resendez and?bilateral stent placed with no significant change and it appears that there will not be significant recovery and therefore started 03/29 on dialysis. Plan for dialysis today Needs insurance finalized to receive outpatient dialysis nausea and vomiting and poor oral intake resolved, Zofran PRN thrombocytopenia follow cbc DVT prophylaxis:? compression device Attending Dr. Box Quality Stroke Does the patient have a stroke diagnosis?: No VTE Prior VTE?: No VTE Risk Level:: Medical - moderate - high VTE Device Contraindication: Treatment Not Indicated VTE Drug Contraindication: N/A - Med Ordered
--- NOTE | 2021-04-09 16:47 | P.PNNP_ITS ---
Subjective Subjective Date of Service: 04/09/21 Principal diagnosis: DAVID, HD dependent Interval history: seen and examined this morning follow up for renal failure, orthostatic hypotension, anemia, urinary retention resendez placed by urology yesterday less dizziness Physical Exam Vital Signs: Vital Signs: Last Vital Signs Temp 97.6 F 04/09/21 16:00 Pulse 102 H 04/09/21 16:00 Resp 18 04/09/21 16:00 BP 111/65 04/09/21 16:00 Pulse Ox 98 04/09/21 16:00 BMI result Body Mass Index 21.9 Const: General: cooperative Orientation/consciousness: oriented to person and oriented to place Resp: Auscultation: clear to auscultation bilaterally Cardio: Jugular venous distension: no JVD Palpation: no palpable S3 Heart sounds: no gallops GI: Inspection: Yes normal to inspection Palpation (GI): Soft to palpation and nontender Skin: General skin exam: no rashes or lesions noted Neuro: General: oriented to person and oriented to place Motor exam (neuro): no asterixis Objective Data Labs CBC & Chem 7: 04/09/21 08:38 04/09/21 08:38 Labs: Laboratory Results - last 24 hr 04/09/21 04/09/21 08:38 08:38 WBC 5.0 RBC 2.48 L Hgb 7.7 L Hct 23.9 L MCV 96.4 MCH 31.0 MCHC 32.2 RDW 13.7 Plt Count 156 L MPV 9.1 L Immature Gran % (Auto) 0.4 Neut % (Auto) 59.6 Lymph % (Auto) 17.4 L [place] % (Auto) 14.8 H Eos % (Auto) 7.2 H Baso % (Auto) 0.6 Lymph # (Auto) 0.9 L [place] # (Auto) 0.7 Eos # (Auto) 0.4 Baso # (Auto) 0.0 Abs Immat Gran (auto) 0.02 Absolute Neuts (auto) 3.0 Absolute Nucleated RBC 0.000 Nucleated RBC % (auto) 0.0 Sodium 137 Potassium 3.8 Chloride 106 Carbon Dioxide 23 Anion Gap 12 BUN 27 H Creatinine 5.36 H* Estim Creat Clear Calc 14.0 Estimated GFR 11 Random Glucose 93 Calcium 7.7 L Microbiology Microbiology Results: Microbiology 04/07/21 00:00 Urine Catheterized - Resendez Catheter Urine Culture - Final No growth. 03/24/21 19:44 Urine Catheterized - Resendez Catheter Urine Culture - Final No growth. Procedures Date of Service Date of Service: 04/09/21 Assessment & Plan Assessment and plan (1) ESRD (end stage renal disease): Status: Acute Assessment and Plan: CKD 5 Dialysis dependent No s/s of uremia Hypotension Resolved with IVF Can DC IVF DC Planning Time Spent With Patient Time: Total time spent is greater than 50% in coordination of care (as documente d) at patient's floor/unit and/or counseling patient: Progress Note: Quality Stroke Does the patient have a stroke diagnosis?: No
[2021-04-09] MEDS: Tamsulosin HCL 0.4 MG CAPSULE PO (21:09)
[2021-04-10] VITALS: BP 123/60; PULSE 90; RESP 18; TEMP 37.3; O2SAT 97
[2021-04-10 03:40] VITALS: BP 125/60; PULSE 81; RESP 18; TEMP 36.6; O2SAT 99
[2021-04-10] MEDS: Sevelamer Carbonate Tablet 800 MG TABLET PO ×3 (07:46→16:51)
[2021-04-10 07:54] VITALS: BP 153/71; PULSE 87; RESP 18; TEMP 36.8; O2SAT 94
[2021-04-10] MEDS: 0.9 % Sodium Chloride Flush 3 ML SYRINGE IVFLUSH ×3 (07:58→23:59)
[2021-04-10 08:40] LABS: Mean Corpuscular Hemoglobin 30.7 pg (27.0-33.0); Mean Corpuscular Volume 95.8 fL (80.0-98.0); Mean Platelet Volume 9.3 fL (9.4-12.4); Platelet Count 178 X10*3/uL (160-400); Red Blood Count 2.61 X10*6/uL (4.60-5.80); Red Cell Distribution Width 13.4 % (11.0-16.0); White Blood Count 5.3 X10*3/uL (4.8-10.8)
--- NOTE | 2021-04-10 11:53 | PM.PNNEP ---
Subjective Subjective Date of Service: 04/12/21 Principal diagnosis: DAVID, HD dependent Interval history: seen and examined this morning follow up for renal failure, orthostatic hypotension, anemia, urinary retention resendez placed by urology yesterday less dizziness Physical Exam Vital Signs: Vital Signs: Last Vital Signs Temp 98.3 F 04/10/21 07:54 Pulse 87 04/10/21 07:54 Resp 18 04/10/21 07:54 BP 153/71 H 04/10/21 07:54 Pulse Ox 94 04/10/21 07:54 BMI result Body Mass Index 21.9 Const: General: cooperative Orientation/consciousness: oriented to person and oriented to place Resp: Auscultation: clear to auscultation bilaterally Cardio: Jugular venous distension: no JVD Palpation: no palpable S3 Heart sounds: no gallops GI: Inspection: Yes normal to inspection Palpation (GI): Soft to palpation and nontender Skin: General skin exam: no rashes or lesions noted Neuro: General: oriented to person and oriented to place Motor exam (neuro): no asterixis Objective Data Labs CBC & Chem 7: 04/11/21 05:36 04/11/21 05:36 Labs: Laboratory Results - last 24 hr 04/10/21 07:48 WBC 5.3 RBC 2.61 L Hgb 8.0 L Hct 25.0 L MCV 95.8 MCH 30.7 MCHC 32.0 RDW 13.4 Plt Count 178 MPV 9.3 L Absolute Nucleated RBC 0.000 Nucleated RBC % (auto) 0.0 Microbiology Microbiology Results: Microbiology 04/07/21 00:00 Urine Catheterized - Resendez Catheter Urine Culture - Final No growth. 03/24/21 19:44 Urine Catheterized - Resendez Catheter Urine Culture - Final No growth. Procedures Date of Service Date of Service: 04/10/21 Assessment & Plan Assessment and plan (1) ESRD (end stage renal disease): Status: Acute Assessment and Plan: CKD 5 Dialysis dependent HD tomorrow No s/s of uremia Hypotension DC Planning Time Spent With Patient Time: Total time spent is greater than 50% in coordination of care (as documented) at patient's floor/unit and/or counseling patient: Time with patient: 15 - 24 minutes Progress Note: Quality Stroke Does the patient have a stroke diagnosis?: No
--- NOTE | 2021-04-10 13:29 | P.PNIM_ITS ---
Subjective Subjective Date of Service: 04/10/21 Interval History: seen and examined this morning no overnight events feeling well this morning Review of Systems Review of Systems: Yes all other systems are reviewed and are negative Constitutional Constitutional: Denies chills and Denies fever(s) Cardiovascular Cardiovascular: Denies chest pain Respiratory Respiratory: Denies cough Gastrointestinal Gastrointestinal: Denies abdominal pain Physical Exam Vital Signs: Vital Signs: Last Vital Signs Temp 98.3 F 04/10/21 07:54 Pulse 87 04/10/21 07:54 Resp 18 04/10/21 07:54 BP 153/71 H 04/10/21 07:54 Pulse Ox 94 04/10/21 07:54 BMI result Body Mass Index 21.9 Const: General: healthy appearing, comfortable, alert and awake Nutritional Appearance: well nourished Orientation/consciousness: patient oriented x3 HENMT: Head: Yes normocephalic and Yes atraumatic Eyes: Sclerae: sclerae normal Pupils: Equal, round and reactive pupils present Resp: Effort & Inspection: normal respiratory effort and no respiratory distress Cardio: Rate: regular rate Rhythm: regular rhythm GI: Inspection: No distended Palpation (GI): Soft to palpation and nontender : Other: resendez in place, draining clear yellow urine Neuro: General: patient oriented x3 Cranial nerves: Yes CN's II-XII intact bilaterally, Yes Equal, round and reactive pupils present and Yes Bilaterally intact EOM present Extrem: General: Yes no pedal edema Objective Data Active Medications Docusate Sodium (Docusate Sodium 100 Mg Capsule) 100 mg PO DAILY PRN PRN Reason: Constipation Last Admin: 03/31/21 16:35 Dose: 100 mg Documented by: BOLIVAR Multi-Ingred Cream/Lotion/Oil/Oint (Mineral Oil/Petrolatum,White 106 Gm Tube) 1 appl TOPICAL BEDTIME PRN; Protocol PRN Reason: dry skin Ondansetron HCl (Ondansetron Hcl 4 Mg/2 Ml Vial) 4 mg IVPUSH Q8H PRN PRN Reason: Nausea and Vomiting Last Admin: 03/30/21 19:37 Dose: 4 mg Documented by: SALONI Sevelamer Carbonate (Sevelamer Carbonate Tablet 800 Mg Tablet) 800 mg PO TIDWM COUNT INCLUDES THE [facility] Last Admin: 04/10/21 12:23 Dose: 800 mg Documented by: HO.YOUB Sodium Chloride (0.9 % Sodium Chloride Flush 3 Ml Syringe) 3 ml IVFLUSH QSHIFT COUNT INCLUDES THE [facility] Last Admin: 04/10/21 07:58 Dose: 3 ml Documented by: KARYN Labs CBC & Chem 7: 04/10/21 07:48 04/09/21 08:38 Labs: Laboratory Results - last 24 hr 04/10/21 07:48 MCV 95.8 MCH 30.7 MCHC 32.0 RDW 13.4 Plt Count 178 MPV 9.3 L Absolute Nucleated RBC 0.000 Nucleated RBC % (auto) 0.0 Assessment and Plan (1) ESRD (end stage renal disease): Status: Acute (2) Urinary retention with incomplete bladder emptying: Status: Acute Assessment and Plan: 70 yo M who reports no past medical history presents to the hospital with intractable nausea vomiting, weight loss, found to have severe kidney failure with Creatinine around 17 and bun around 200.. S/p bilateral reanal stenting with no significant improvement? and now has permacath and started dialysis 03/29 orthostatic hypotension. improved likely multifactorial from HD and flomax s/p IVF flomax d/c Normocytic anemia iron studies -probable aocd. s/p 1 unit RBC 04/08 b12 and folate wnl. stool occult negative H/H stable urinary retention resendez catheter replace by urology 04/08 flomax d/c due to orthostatic hypotension outpatient follow up Diarrhea. Resolved cdiff, still uncollected ESRD. initially thought to be post obstructive secondary to either enlarged prostate or mass although no bladder mass seen on CT abdomen pelvis. Has resendez and?bilateral stent placed with no significant change and it appears that there will not be significant recovery and therefore started 03/29 on dialysis. Plan for dialysis 04/11 Needs insurance finalized to receive outpatient dialysis nausea and vomiting and poor oral intake resolved, Zofran PRN thrombocytopenia platelets improved DVT prophylaxis:? compression device Attending Dr. Quiles Dispo: home when outpatient HD set up Quality Stroke Does the patient have a stroke diagnosis?: No VTE Prior VTE?: No VTE Risk Level:: Medical - moderate - high VTE Device Contraindication: Treatment Not Indicated VTE Drug Contraindication: N/A - Med Ordered
[2021-04-10 15:41] VITALS: BP 139/71; PULSE 91; RESP 18; TEMP 36.7; O2SAT 99
[2021-04-10 19:32] VITALS: BP 159/73; PULSE 100; RESP 18; TEMP 36.7; O2SAT 98
[2021-04-11] VITALS: BP 133/77; PULSE 101; RESP 18; TEMP 36.5; O2SAT 98
[2021-04-11 04:00] VITALS: BP 123/68; PULSE 89; RESP 18; TEMP 36.5; O2SAT 98
[2021-04-11 05:49] LABS: MANUAL DIFF FLAG NO
[2021-04-11 05:57] LABS: Basophils Percent Auto 0.6 % (0-2); Eosinophils Absolute Auto 0.4 X10*3/uL (0.0-0.4); Eosinophils Percent Auto 7.5 % (0-4); Hematocrit 24.7 % (42.0-52.0); Hemoglobin 7.9 g/dl (14.0-18.0); Imm Gran Abs Auto 0.01 X10*3/uL (0.00-0.03); Imm Gran Pct Auto 0.2 % (0.0-0.4); Lymphocytes Absolute Auto 0.9 X10*3/uL (1.2-4.9); Lymphocytes Percent Auto 17.2 % (20-40); Mean Corpuscular Hemoglobin 30.7 pg (27.0-33.0); Mean Corpuscular Volume 96.1 fL (80.0-98.0); Monocytes Absolute Auto 0.5 X10*3/uL (0.1-1.2); Monocytes Percent Auto 10.7 % (2-11); Neutrophils Absolute Auto 3.2 x10*3/uL (2.0-8.3); Neutrophils Percent Auto 63.8 % (45-73); Platelet Count 168 X10*3/uL (160-400); Red Blood Count 2.57 X10*6/uL (4.60-5.80); Red Cell Distribution Width 13.4 % (11.0-16.0); White Blood Count 5.1 X10*3/uL (4.8-10.8)
[2021-04-11 06:19] LABS: Anion Gap 15 (12-20); Blood Urea Nitrogen 47 mg/dL (9-16); Carbon Dioxide 22 mmol/L (22-29); Chloride 104 mmol/L (96-108); Creatinine Clr Calc Pharmacy 9.1; Estimated Glomerular Filt Rate 7; Glucose Random 108 mg/dL (60-115); Sodium 137 mmol/L (135-145)
[2021-04-11 08:00] VITALS: BP 164/81; PULSE 91; RESP 18; TEMP 36.6; O2SAT 97
[2021-04-11] MEDS: Sevelamer Carbonate Tablet 800 MG TABLET PO ×2 (08:52→13:12)
--- NOTE | 2021-04-11 09:19 | MHC.CM.PN ---
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 COVERING PATIENT TODAY AND HEMO DIALYSIS NURSE . 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
--- NOTE | 2021-04-11 11:35 | PM.PNNEP ---
Subjective Subjective Date of Service: 04/12/21 Principal diagnosis: DAVID, HD dependent Interval history: Seen during HD Physical Exam Vital Signs: Vital Signs: Last Vital Signs Temp 97.8 F 04/11/21 08:00 Pulse 91 04/11/21 08:00 Resp 18 04/11/21 08:00 BP 164/81 H 04/11/21 08:00 Pulse Ox 97 04/11/21 08:00 BMI result Body Mass Index 21.9 Const: Other: General: AO X 3, no acute distress Resp: CTA bilateral CVS: S1,S2,RRR GI: +BS, NT, no distention Skin: No rash Neuro: motor grossly intact Psych: appropriate affect Objective Data Labs CBC & Chem 7: 04/11/21 05:36 04/11/21 05:36 Labs: Laboratory Results - last 24 hr 04/11/21 04/11/21 05:36 05:36 WBC 5.1 RBC 2.57 L Hgb 7.9 L Hct 24.7 L MCV 96.1 MCH 30.7 MCHC 32.0 RDW 13.4 Plt Count 168 MPV 9.0 L Immature Gran % (Auto) 0.2 Neut % (Auto) 63.8 Lymph % (Auto) 17.2 L Mcduffie % (Auto) 10.7 Eos % (Auto) 7.5 H Baso % (Auto) 0.6 Lymph # (Auto) 0.9 L Mcduffie # (Auto) 0.5 Eos # (Auto) 0.4 Baso # (Auto) 0.0 Abs Immat Gran (auto) 0.01 Absolute Neuts (auto) 3.2 Absolute Nucleated RBC 0.000 Nucleated RBC % (auto) 0.0 Sodium 137 Potassium 4.0 Chloride 104 Carbon Dioxide 22 Anion Gap 15 BUN 47 H D Creatinine 8.17 H* Estim Creat Clear Calc 9.1 Estimated GFR 7 Random Glucose 108 Calcium 8.0 L Microbiology Microbiology Results: Microbiology 04/07/21 00:00 Urine Catheterized - Grijalva Catheter Urine Culture - Final No growth. 03/24/21 19:44 Urine Catheterized - Grijalva Catheter Urine Culture - Final No growth. Procedures Date of Service Date of Service: 04/11/21 Assessment & Plan Assessment and plan (1) ESRD (end stage renal disease): Status: Acute Assessment and Plan: CKD 5 Dialysis dependent HD today No s/s of uremia Await clearance from insurance. DC Planning once insurance issue is settled I will contact Ginny caceres Time Spent With Patient Time: Total time spent is greater than 50% in coordination of care (as documented) at patient's floor/unit and/or counseling patient: Time with patient: 15 - 24 minutes Progress Note: Quality Stroke Does the patient have a stroke diagnosis?: No
[2021-04-11 15:26] VITALS: BP 130/58; PULSE 90; RESP 20; TEMP 36.1; O2SAT 98
== END 2021-04-11 16:30 | disposition home or self-care (01) | DRG 660 ==
LOC: HO.ED 23:11 → HO.EDOVER 23:15 → HO.ICU 03-25 11:58 → HO.S3 03-27 17:44
PROVIDERS: Family Medicine; Internal Medicine; Internal Medicine Cardiovascular Disease; Internal Medicine Nephrology; Physician Assistant Medical; Radiology Diagnostic Radiology; Urology; Admitting Provider Internal Medicine; Emergency Provider Emergency Medicine; Visit Provider Nurse Practitioner Acute Care
PROC: 0T788DZ Dilation of Bilateral Ureters with Intraluminal Device, Via Natural or Artificial Opening Endoscopic (ICD-10-PCS; principal; 2021-03-25 12:00)
PROC: 0JH63XZ Insertion of Tunneled Vascular Access Device into Chest Subcutaneous Tissue and Fascia, Percutaneous Approach (ICD-10-PCS; principal; 2021-03-28 13:00)
DX: N13.6 Pyonephrosis (principal); E87.2 Acidosis; N25.0 Renal osteodystrophy; R31.9 Hematuria, unspecified; D63.1 Anemia in chronic kidney disease; I95.3 Hypotension of hemodialysis; N17.9 Acute kidney failure, unspecified; N18.6 End stage renal disease; Z99.2 Dependence on renal dialysis; Z20.822 Contact with and (suspected) exposure to COVID-19; Z23 Encounter for immunization; Z87.891 Personal history of nicotine dependence; Z79.899 Other long term (current) drug therapy
CPT/HCPCS: 36415; 36558; 36600; 71045; 71046; 74176; 80048; 80053; 81001; 82272; 82607; 82728; 82746; 82803; 83540; 83605; 83880; 83970; 84100; 84300; 84484; 85014; 85018; 85025; 85027; 85610; 85730; 86704; 86706; 86803; 86850; 86900; 86901; 86923; 87086; 87340; 87635; 88112; 90686; 90999; 93005; 96361; 96365; 99152; 99153; 99285; C1750; C1769; C2617; J0696; J0885; J1650; J1956; J2060; J2250; J2270; J2370; J2405; J2597; J2765; J3010; P9016; Q0163; Q9967

== ENCOUNTER → 2021-05-04 10:51 | Outpatient (BNVA) | payer MEDICARE, MEDICAID, SELFPAY | PROVIDERS: Visit Provider Urology | DX: N18.6 End stage renal disease (principal) | CPT/HCPCS: 51700; 51701; 51798 ==

== ENCOUNTER → 2021-06-01 08:55 | Outpatient (BNVA) | payer MEDICARE, MEDICAID, SELFPAY | PROVIDERS: Visit Provider Urology | DX: Z43.5 Encounter for attention to cystostomy (principal); N18.6 End stage renal disease | CPT/HCPCS: 51700; 51705; 51798 ==

== ENCOUNTER → 2021-06-29 09:24 | Outpatient (BNVA) | payer MEDICARE, MEDICAID, SELFPAY | PROVIDERS: Visit Provider Urology | DX: N18.6 End stage renal disease (principal) | CPT/HCPCS: 51702 ==

== ENCOUNTER → 2021-07-29 09:36 | Outpatient (BNVA) | payer MEDICARE, MEDICAID, SELFPAY | PROVIDERS: Visit Provider Urology | DX: N18.6 End stage renal disease (principal) | CPT/HCPCS: 51702 ==

== ENCOUNTER → 2021-08-26 08:41 | Outpatient (BNVA) | payer MEDICARE, MEDICAID, SELFPAY | PROVIDERS: Visit Provider Urology | DX: N18.6 End stage renal disease (principal) | CPT/HCPCS: 51702 ==

== ENCOUNTER → 2021-09-28 08:15 | Outpatient (BNVA) | payer MEDICARE, MEDICAID, SELFPAY | PROVIDERS: Visit Provider Urology | DX: N13.30 Unspecified hydronephrosis (principal); R33.9 Retention of urine, unspecified | CPT/HCPCS: 51702; 99212 ==

== ENCOUNTER → 2021-10-20 06:03 | Day surgery (SDC) | payer MEDICARE, MEDICAID, SELFPAY ==
--- NOTE | 2021-10-19 09:41 | HO.ANESPROP2 ---
HPI - Anesthesia Eval Consult details Narrative: 70yo M for Bilateral Cystoscopy & Stent Replacement ESRD with HD s/p cysto, etc 03/2021 with TIVA PMFSH Active Problems Active Problems: All Active Problems (Updated 09/28/21 @ 08:44 by Herve Herrera MD) Urinary retention with incomplete bladder emptying (Acute) Bilateral hydronephrosis (Acute) ESRD (end stage renal disease) (Acute) Past Medical History Medical History ESRD (end stage renal disease) Seizure disorder Family History Family History Other No pertinent family history in first degree relatives Family history of problems with anesthesia: No Surgical History Surgical History H/O hernia repair History of Problems with Anesthesia: No Social History Social History Household Members: Other Household Members Other:: [facility] Housing: Apartment Do you presently have visiting nurse or other home services: No Alcohol intake: former Patient Tobacco Use Status: Former Tobacco user Second Hand Smoke Exposure: No Use of substances other than those prescribed or required for medical reasons: Yes Substance Use Type: Marijuana Substance Use Frequency: Daily Are you DNR?: Yes Advance Directives: No Advance Directives Information Provided: Yes Meds Allergies Allergy/AdvReac Type Severity Reaction Status Date / Time No Known Allergies Allergy Verified 09/28/21 08:23 Home Medications Medication Instructions Recorded Confirmed Last Taken Type nystatin 100,000 unit/gram topical topical 3XW 09/28/21 Unknown History powder tamsulosin 0.4 mg capsule 0.4 mg PO BID 09/28/21 Unknown History Exam Exam Date and Time: October 19, 2021 0941 Narrative Narrative: EKG 03/2021 Vent. Rate : 120 BPM ? ? Atrial Rate : 120 BPM ?? P-R Int : 160 ms? QRS Dur : 088 ms ? ? QT Int : 314 ms ? ? ? P-R-T Axes : 081 050 094 degrees ?? QTc Int : 443 ms ? Sinus tachycardia Left ventricular hypertrophy with repolarization abnormality ( Sokolow-Leon ) Abnormal ECG No previous ECGs available Assessment and Plan Assessment Anesthesia Assessment: Chart Reviewed Final Anesthetic Review Family History of Problems with Anesthesia: No History of Problems with Anesthesia: No
[2021-10-20 06:26] VITALS: BMI 25.0
[2021-10-20] MEDS: 0.9 % Sodium Chloride 1,000 ML 50 ML IVCONT (06:35)
[2021-10-20 06:41] VITALS: BP 146/90; PULSE 90; RESP 18; TEMP 35.9; O2SAT 98
[2021-10-20 07:24] LABS: Anion Gap 23 (12-20); Carbon Dioxide 20 mmol/L (22-29); Chloride 102 mmol/L (96-108); Potassium 5.9 mmol/L (3.3-5.1); Sodium 139 mmol/L (135-145)
--- NOTE | 2021-10-20 07:48 | ECG_ITS ---
Test Reason : ect Blood Pressure : / mmHG Vent. Rate : 073 BPM Atrial Rate : 073 BPM P-R Int : 158 ms QRS Dur : 084 ms QT Int : 392 ms P-R-T Axes : 076 032 061 degrees QTc Int : 431 ms Normal sinus rhythm Normal ECG When compared with ECG of 24-MAR-2021 17:24, Vent. rate has decreased BY [address] no longer depressed in Lateral leads Nonspecific T wave abnormality no longer evident in Lateral leads Referred By: Monse Carter Electronically Signed By:JAVIER DARDEN MD
--- NOTE | 2021-10-20 08:05 | PC.NURSE ---
Stat electrolytes drawn and K is 5.9. Evaluated by Dr Carter and Dr Herrera. Stat EKG done. Procedure cancelled, patient aware.
--- NOTE | 2021-10-20 08:09 | PM.UROPN ---
Subjective Subjective Date of Service: 10/20/21 Interval history: Prop found to have K 5.[address] Cruz Stable EKG Recommend Lokelma 10mg po He will be dialysing tomorrow Patient aware Threshold for ER transfer 6.2 Physical Exam Vital Signs: Vital Signs: Last Vital Signs Temp 96.7 F L 10/20/21 06:41 Pulse 90 10/20/21 06:41 Resp 18 10/20/21 06:41 BP 146/90 H 10/20/21 06:41 Pulse Ox 98 10/20/21 06:41 O2 Del Method 10/20/21 06:41 BMI result Body Mass Index 25.0 Const: General: cooperative, healthy appearing, comfortable and no acute distress Orientation/consciousness: patient oriented x3 HEENT: Face and sinus: Yes normal facial exam Mouth: moist mucous membranes Neck: Neck: Yes normal visual inspection, Yes full ROM and Yes trachea midline Chest: Chest palpation & inspection: normal inspection of the chest Resp: Effort & Inspection: normal respiratory effort, able to speak in complete sentences and no respiratory distress GI: Inspection: Yes normal to inspection Back/Spine/Pelvis: Cervical Spine: normal cervical lordosis Thoracic/Lumbar Spine: thoracic and lumbar spine normal to inspection Skin: General skin exam: no rashes or lesions noted Neuro: General: patient oriented x3, tone normal and moves all extremities Extrem: General: Yes normal to inspection and Yes capillary refill normal Urology Results Labs CBC & Chem 7: 10/20/21 06:36 Labs: Laboratory Results - last 24 hr 10/20/21 06:36 Sodium 139 Potassium 5.9 H D Chloride 102 Carbon Dioxide 20 L Anion Gap 23 H Progress Note: A&P Assessment and plan (1) Hyperkalemia: Status: Acute Plan Postpone surgery Time Spent With Patient Time: Total time spent is greater than 50% in coordination of care (as documented) at patient's floor/unit and/or counseling patient:
[2021-10-20] MEDS: Sodium Zirconium Cyclosilicate 10 GM POWD.PACK PO (08:15)
--- NOTE | 2021-10-20 08:18 | PC.NURSE ---
Procedure cancelled due to potassium 5.9, patient states been feeling sick to stomach/vomiting recently, did go to dialysis yesterday . Anesthesia & Dr Herrera aware. EKG taken by bedside. On called nephrology consulted, Dr Cruz spoke with Dr Herrera by phone - per Dr Cruz patient to receive PO Lokelma, have monitoring in immediate post administration period then D/C home to have dialysis tomorrow as scheduled. Pharmacy called to verify availability of Lokelma, order by Dr Herrera, Per Francine Maria, patient does not need to be transferred to ED for work up or drug administration - medication to be given, patient to be monitored in SSS for 20 mins and then D/C home. Importance of attending dialysis tomorrow as scheduled emphasized, instructed to seek medical attention if new or worsening symptoms arise when home.
--- NOTE | 2021-10-20 08:19 | PC.NURSE ---
0815-Pt given Sodium Zirconium Cyclosilicate ( Lokelma) po to reduce K level. Will be monitored x 20-30 minutes and then be discharged.
--- NOTE | 2021-10-20 08:23 | PC.NURSE ---
0815: 71 [id number] 98% RA. No complaints
--- NOTE | 2021-10-20 08:51 | P.CONAN_ITS ---
HPI - Anesthesia Eval Consult details Narrative: Dialysis pt presented for surgery with K+ of 5.9. Dialyzed yesterday. Reported some sporadic vomiting after meals in last few weeks, otherwise feeling well. EKG obtained-- NSR Consulted with Dr. Herrera, cancelled surgery for today. As per morning babysitter Dr. Cruz, Lokelma dose administered, pt to be dialyzed with labs obtained tomorrow. PMFSH Active Problems Active Problems: All Active Problems (Updated 10/20/21 @ 08:11 by Herve Herrera MD) Hyperkalemia (Acute) Urinary retention with incomplete bladder emptying (Acute) Bilateral hydronephrosis (Acute) Past Medical History Medical History ESRD (end stage renal disease) Seizure disorder Family History Family History Other No pertinent family history in first degree relatives Family history of problems with anesthesia: No Surgical History Surgical History H/O hernia repair History of Problems with Anesthesia: No Social History Social History Household Members: Other Household Members Other:: [facility] Housing: Apartment Do you presently have visiting nurse or other home services: No Alcohol intake: former Patient Tobacco Use Status: Former Tobacco user Second Hand Smoke Exposure: No Use of substances other than those prescribed or required for medical reasons: Yes Substance Use Type: Marijuana Substance Use Frequency: Daily Are you DNR?: Yes Advance Directives: No Advance Directives Information Provided: Yes Meds Allergies Allergy/AdvReac Type Severity Reaction Status Date / Time No Known Allergies Allergy Verified 09/28/21 08:23 Active Medications: Current Medications Sodium Chloride (Ns) 1,000 mls @ 50 mls/hr IVCONT .Q20H DAWN Last Admin: 10/20/21 06:35 Dose: 50 mls/hr Home Medications Medication Instructions Recorded Confirmed Last Taken Type nystatin 100,000 unit/gram topical topical 3XW 09/28/21 Unknown History powder tamsulosin 0.4 mg capsule 0.4 mg PO BID 09/28/21 Unknown History Exam Exam Date and Time: October 20, 2021 0851 Height,Weight and Vital Signs: Height 6 ft 3 in Weight 90.718 kg Last Vital Signs Temp 96.7 F L 10/20/21 06:41 Pulse 90 10/20/21 06:41 Resp 18 10/20/21 06:41 BP 146/90 H 10/20/21 06:41 Pulse Ox 98 10/20/21 06:41 O2 Del Method 10/20/21 06:41 Pertinent Lab Results Pertinent Lab Results: Laboratory Tests 10/20/21 06:36 Sodium 139 Potassium 5.9 H D Chloride 102 Carbon Dioxide 20 L Anion Gap 23 H Assessment and Plan Final Anesthetic Review Family History of Problems with Anesthesia: No History of Problems with Anesthesia: No
== END ==
PROVIDERS: Nurse Practitioner; Visit Provider Urology
DX: N13.30 Unspecified hydronephrosis (principal); Z53.8 Procedure and treatment not carried out for other reasons; E87.5 Hyperkalemia; G40.909 Epilepsy, unspecified, not intractable, without status epilepticus
CPT/HCPCS: 36415; 80051; 93005; J1100; J1956; J2250; J2405; J3010; Q9967

== ENCOUNTER 2021-11-03 05:54 | Day surgery (SDC) | payer MEDICARE, MEDICAID, SELFPAY ==
[2021-10-28 09:38] VITALS: BMI 25.0
[2021-11-03] VITALS (8 sets, daily range): BP systolic 95–144; BP diastolic 60–82; PULSE 58–90; RESP 10–18; TEMP 36.5–37.2; O2SAT 97–99
--- NOTE | ~2021-11-03 | FL_ITS ---
EXAMINATION: XR FLUOROSCOPY WITH IMAGES CLINICAL INFORMATION: Urologic procedure, bilateral retrograde since dense COMPARISON: CT abdomen and pelvis noncontrast 03/24/2021 TECHNIQUE: Fluoroscopy performed by Dr. Herve Herrera. Fluoroscopy time: 1.0 minutes. Cumulative Dose: 35.8 mGy. DAP: 9.77 Gy-cm2. Images: 4. FINDINGS: There is contrast in the bilateral renal collecting systems with presence of bilateral caliectasis. Guidewire is seen on both sides followed by bilateral ureteral stents. Distal stents beyond the [id number]. FL/FL guidance in OR IMPRESSION: Fluoroscopy for urologic procedures.
[2021-11-03 06:40] LABS: MANUAL DIFF FLAG NO
[2021-11-03 06:42] LABS: Basophils Percent Auto 0.4 % (0-2); Eosinophils Absolute Auto 0.2 X10*3/uL (0.0-0.4); Hematocrit 32.8 % (42.0-52.0); Hemoglobin 10.4 g/dl (14.0-18.0); Imm Gran Abs Auto 0.04 X10*3/uL (0.00-0.03); Imm Gran Pct Auto 0.5 % (0.0-0.4); Lymphocytes Absolute Auto 1.2 X10*3/uL (1.2-4.9); Lymphocytes Percent Auto 16.3 % (20-40); Mean Corpuscular HGB Conc 31.7 g/dl (31.0-36.0); Mean Corpuscular Hemoglobin 30.9 pg (27.0-33.0); Mean Corpuscular Volume 97.3 fL (80.0-98.0); Mean Platelet Volume 9.5 fL (9.4-12.4); Monocytes Absolute Auto 0.6 X10*3/uL (0.1-1.2); Monocytes Percent Auto 7.6 % (2-11); Neutrophils Absolute Auto 5.3 x10*3/uL (2.0-8.3); Neutrophils Percent Auto 72.2 % (45-73); Platelet Count 195 X10*3/uL (160-400); Red Blood Count 3.37 X10*6/uL (4.60-5.80); Red Cell Distribution Width 15.7 % (11.0-16.0); White Blood Count 7.4 X10*3/uL (4.8-10.8)
[2021-11-03 07:06] LABS: Anion Gap 18 (12-20); Blood Urea Nitrogen 33 mg/dL (9-16); Calcium 8.6 mg/dL (8.4-10.2); Carbon Dioxide 25 mmol/L (22-29); Chloride 101 mmol/L (96-108); Creatinine Clr Calc Pharmacy 10.6; Estimated Glomerular Filt Rate 7; Glucose Random 101 mg/dL (60-115); Potassium 4.8 mmol/L (3.3-5.1); Sodium 139 mmol/L (135-145)
--- NOTE | 2021-11-03 07:28 | HO.ANESPROP2 ---
HPI - Anesthesia Eval Consult details Narrative: 70 M for cysto , stent placement and possible suprapubic tube . ESRD on HD . Previously the case was cancelled secondary to hyperkalemia PMFSH Active Problems Active Problems: All Active Problems (Updated 10/28/21 @ 09:35 by Miranda Hinson RN) Bilateral hydronephrosis (Acute) Urinary retention with incomplete bladder emptying (Acute) Hyperkalemia (Acute) Past Medical History Medical History ESRD (end stage renal disease) Seizure disorder Surgery canceled before induction of anesthesia Family History Family History Other No pertinent family history in first degree relatives Family history of problems with anesthesia: No Surgical History Surgical History H/O hernia repair Hx of cystoscopy S/P arteriovenous (AV) fistula creation History of Problems with Anesthesia: No Social History Social History (Updated 10/28/21 @ 09:37 by Miranda Hinson RN) Household Members: Other Household Members Other:: housemate renting room in apt Housing: Apartment Are you a primary group care worker to a significant other at home: No Do you presently have visiting nurse or other home services: No Alcohol intake: former Patient Tobacco Use Status: Former Tobacco user Quit Date: age 40's Tobacco use type: Cigarette Second Hand Smoke Exposure: No Substance Use Type: Marijuana Advance Directives Date on File: 11/03/21 Meds Allergies Allergy/AdvReac Type Severity Reaction Status Date / Time No Known Allergies Allergy Verified 09/28/21 08:23 Home Medications Medication Instructions Recorded Confirmed Last Taken Type nystatin 100,000 unit/gram topical 1 appl topical 3XW 09/28/21 10/28/21 Unknown History powder tamsulosin 0.4 mg capsule 0.4 mg PO BID 09/28/21 10/28/21 Unknown History acetaminophen 325 mg tablet 2 tab PO Q4H PRN pain 10/28/21 10/28/21 Unknown History apixaban 2.5 mg tablet (Eliquis) 1 tab PO BID 10/28/21 11/03/21 10/21/21 History docusate sodium 100 mg tablet 100 mg PO BID 10/28/21 10/28/21 Unknown History oxycodone 5 mg tablet 1 tab PO Q6H PRN pain 10/28/21 10/28/21 Unknown History sevelamer carbonate 800 mg tablet 2,400 mg PO TIDAC 10/28/21 10/28/21 Unknown History Exam Exam Date and Time: November 03, [id number] Height,Weight and Vital Signs: Height 6 ft 3 in Weight 90.718 kg Last Vital Signs Temp 97.7 F 11/03/21 06:44 Pulse 58 11/03/21 06:44 Resp 16 11/03/21 06:44 BP 144/82 H 11/03/21 06:44 Pulse Ox 99 11/03/21 06:44 O2 Del Method 11/03/21 06:44 Pertinent Lab Results Pertinent Lab Results: Laboratory Tests 11/03/21 11/03/21 06:34 06:34 WBC 7.4 RBC 3.37 L D Hgb 10.4 L D Hct 32.8 L D MCV 97.3 MCH 30.9 MCHC 31.7 RDW 15.7 Plt Count 195 MPV 9.5 Immature Gran % (Auto) 0.5 H Neut % (Auto) 72.2 Lymph % (Auto) 16.3 L Hanson % (Auto) 7.6 Eos % (Auto) 3.0 Baso % (Auto) 0.4 Lymph # (Auto) 1.2 Hanson # (Auto) 0.6 Eos # (Auto) 0.2 Baso # (Auto) 0.0 Abs Immat Gran (auto) 0.04 H Absolute Neuts (auto) 5.3 Absolute Nucleated RBC 0.000 Nucleated RBC % (auto) 0.0 Sodium 139 Potassium 4.8 Chloride 101 Carbon Dioxide 25 Anion Gap 18 BUN 33 H Creatinine 7.51 H* Estim Creat Clear Calc 10.6 Estimated GFR 7 Random Glucose 101 Calcium 8.6 D Airway Mallampati Class: III TM Dist: >3cm Neck ROM: Full Loose/Missing/Broken Teeth: Yes (Poor dentition globally ) Heart: S1,S2 Lungs: b/l breath sounds Assessment and Plan Assessment Anesthesia Assessment: Anesthesia Plan Discussed and Chart Reviewed Final Anesthetic Review Family History of Problems with Anesthesia: No History of Problems with Anesthesia: No NPO: Yes ASA Class: III Final Preanesthetic Review: No Changes in Pt Med Stat, Meds/Allgs Chart Reviewed and Consent Obtained/Reviewed Patient Risk: High Procedure Risk: Intermediate Anesthetic Plan Anesthetic Plan: GA Disposition: Standard PACU
[2021-11-03] MEDS: 0.9 % Sodium Chloride 500 ML 20 ML IVCONT (07:52)
--- NOTE | 2021-11-03 10:18 | MHC.SHP ---
Pre-Procedural Eval Section A Date of Service: 11/03/21 The patient is an INPATIENT: No Changes since office visit: No Cold of Flu in the past 2 weeks, No New Medical Problems, No Changes in Medication and No Patient answered all questions The History & Physical has been completed within 30 days and I have reviewed it.: Yes Section B Chief Complaint: Hyperkalemia,hydronephrosis Details of Present Illness: Dialysis dependent but still making urine. For bilateral stent exchange and suprapubic tube placement Relevant Social History: None Present Medications: see Short Stay Collaborative assessment Medical History: Significant History History of Previous Operations: Relevant previous surgery/procedure and date(s) Allergies: Allergies Allergy/AdvReac Type Severity Reaction Status Date / Time No Known Allergies Allergy Verified 09/28/21 08:23 Review of Systems Sugical H&P ROS: Negative: Constitution, Cardiovascular, Respiratory, Neurological, Psychiatric, Hem-Onc, Allergic/Immunologic, Gastrointestinal, Genitourinary, Musculoskeletal, Integumentary, Endocrine and Eyes/Ears/Nose/Throat Exam Surgical H&P Exam: Normal: HEENT, Normal: Heart, Normal: Lungs, Normal: Extremities, Normal: Abdomen, Normal: Skin and Normal: Neurological Plan Diagnosis/Plan: Unchanged (Cystoscopy, bilateral stent exchange, suprapubic tube placement) I have reviewed the history and physical and performed a pertinent physical examination on my patient. No changes have occurred unless specified.
--- NOTE | 2021-11-03 13:14 | W.PM.OPN ---
Operative Note Operative Note Date of Service: 11/03/21 Narrative: PreOperative Diagnosis: Bilateral hydroureteronephrosis with incomplete bladder emptying Post Operative Diagnosis: Bilateral hydroureteronephrosis with incomplete bladder emptying Procedure: 1. Cystoscopy with bilateral retrogrades 2. Bilateral ureteroscopy with foreign body removal 3. Bilateral stent placements 4. Suprapubic tube placement Surgeon: Dr Herve Herrera Anesthesia: General Indications for procedure: Bilateral hydroureteronephrosis with J hooking from bladder dysfunction. Had indwelling double-J stents with Grijalva catheter. Has been on dialysis but still making urine. Here for stent exchange and suprapubic tube placement Procedure: After informed consent was verified the patient was brought to the operating room and placed in a supine position. Anesthesia was administered per protocol. Patient was placed in modified dorsal lithotomy position and prepped and draped in sterile fashion. Safety pause time-out was performed. Antibiotics being given. Cystoscopy performed. Both stents appeared to have migrated proximally secondary to significant double-J and not present with the distal tip in the bladder. Fluoroscopy shows both stents have migrated up into the kidney. Retrograde examination also confirmed this bilaterally. Sensor guidewire placed up the left ureter up to the kidney. Cystoscope switched for semi rigid ureteral scope. The semi rigid ureteral scope was advanced into the ureter and the distal portion of the stent was seen and grasped using a 0 tip basket. The stent was removed. A 6 Mongolian by variable length stent was then placed over the wire after being backloaded through the cystoscope and advanced to the renal pelvis with good coil seen in both the renal pelvis in the bladder. Similar procedure was repeated on the right-hand side however we used a 6 Mongolian by 28 cm stent as there were no more variable length stents available. At this point we then proceed with suprapubic tube placement. Measuring 2 fingerbreadths above the symphysis pubis a small incision was made. The cystoscope was then placed. The trocar was placed into the bladder through the incision under direct visualization. A 16 Mongolian Grijalva catheter was then placed in 7 cc placed in the balloon. Good drainage was obtained. The outer sheath was then removed. This can drain to a catheter plug. The patient tolerated procedure well was extubated in operating room transferred in stable condition to the recovery area. Pathology: None Drains: 2 double-J stents and suprapubic tube
== END 2021-11-03 13:11 | disposition home or self-care (01) ==
PROVIDERS: Anesthesiology; Visit Provider Urology
PROC: (CPT 52332; principal; 2021-11-03 07:30)
DX: N13.30 Unspecified hydronephrosis (principal); R33.9 Retention of urine, unspecified; Z99.2 Dependence on renal dialysis; G40.909 Epilepsy, unspecified, not intractable, without status epilepticus; Z79.01 Long term (current) use of anticoagulants; F12.90 Cannabis use, unspecified, uncomplicated; Z87.891 Personal history of nicotine dependence; Z79.899 Other long term (current) drug therapy
CPT/HCPCS: 52332; 51102; 36415; 80048; 85025; C1758; C1769; C2617; J1170; J1956; J2405; J2795; J3010; Q9967